=== PATIENT | female | born 1970 | race Caucasian/White ===

== ENCOUNTER 2016-09-06 08:07 | Inpatient (IN) ==
--- NOTE | 2016-09-01 21:39 | Discharge Summary ---
<Yany Lowe L - Last Filed: 09/03/16 21:34> - Discharge Diagnosis (1) Loosening of knee joint prosthesis Priority: Primary Status: Acute Qualifiers: Encounter type: initial encounter Qualified Code(s): T84.038A - Mechanical loosening of other internal prosthetic joint, initial encounter; Z96.659 - Presence of unspecified artificial knee joint (2) COPD (chronic obstructive pulmonary disease) Priority: Secondary Status: Chronic Qualifiers: COPD type: unspecified COPD Qualified Code(s): J44.9 - Chronic obstructive pulmonary disease, unspecified (3) Bipolar 1 disorder Priority: Secondary Status: Chronic (4) Obesity (BMI 30-39.9) Priority: Secondary Status: Chronic (5) Nicotine dependence with nicotine-induced disorder Priority: Secondary Status: Chronic Qualifiers: Nicotine product type: unspecified Qualified Code(s): F17.209 - Nicotine dependence, unspecified, with unspecified nicotine-induced disorders - Discharge Medications Home Medications: Albuterol Sulfate [Albuterol Inhaler] 2 puff IH Q4HR PRN 02/08/15 [History] Escitalopram [Lexapro] 20 mg PO QAM 02/08/15 [History] Esomeprazole Magnesium [Nexium] 40 mg PO DAILY 02/08/15 [History] Gabapentin [Neurontin] 300 - 600 mg PO HS 02/08/15 [History] Quetiapine Fumarate [Seroquel] 600 mg PO HS 02/08/15 [History] Tizanidine [Zanaflex] 4 mg PO QID PRN 02/08/15 [History] OxyCODONE Immed Rel [Roxicodone 5 MG] 5 - 10 mg PO Q6H PRN #40 tablet 09/03/16 [ Rx] Rivaroxaban [Xarelto] 20 mg PO DAILY #14 tablet 09/03/16 [Rx] Acetaminophen/Butalbital/Caffe [Fioricet] 1 each PO Q6HR PRN 09/06/16 [History] Amitriptyline [Elavil] 25 mg PO HS 09/06/16 [History] Buspirone HCl [Buspar] 10 mg PO BID 09/06/16 [History] Diazepam [Valium] 10 mg PO BID 09/06/16 [History] [place] Carbonate 300 mg PO BID 09/06/16 [History] Loratadine [Claritin] 10 mg PO DAILY 09/06/16 [History] Losartan Potassium [Cozaar] 100 mg PO DAILY 09/06/16 [History] Metoprolol Succinate 100 mg PO DAILY 09/06/16 [History] Pramipexole [Mirapex] 0.25 mg PO HS PRN 09/06/16 [History] Quetiapine Fumarate [Seroquel] 200 mg PO BID 09/06/16 [History] Allergies/Adverse Reactions: Allergies acetaminophen [From [place]] Allergy (Verified 09/06/16 12:08) Rash aspirin [ASA] Allergy (Verified 09/06/16 12:08) Hives hydrocodone Allergy (Verified 09/06/16 12:08) Hives meperidine [From [place]] Allergy (Verified 09/06/16 12:08) Hives lisinopril Adverse Reaction (Verified 09/06/16 12:08) Cough Primary care physician: Ector Wynne MD - Patient Status Disposition: Transfer Inpatient Rehab Fac Condition: Good - Discharge Instructions Follow Up With: Nataliia Mcdonald MD [Partnered Physician] - 01/23/17 3:00 pm Maximiliano Galvan MD [Partnered Physician] - 10/03/16 10:10 am Yany Lowe PAC [Physician Supervisor Contact And Service Clerks] - 09/14/16 1:15 pm (#2- 09/21/16 9: 45AM) Garrick Johnson DO [Partnered Physician] - 11/27/16 1:00 pm Ector Wynne MD [Primary Care Provider] - 11/06/16 2:00 pm Additional Instructions: Discharge Instructions: Total Knee Replacement Please call [facility] ([phone]), your Primary Care Physician, or report to the Emergency Room if you have any of the following symptoms: Nausea, vomiting, fever greater that 101.5, swelling, chest pain, shortness of breath, increased pain/redness/drainage/odor for your incision site, numbness/ tingling, or any other concerning symptoms. ACTIVITY:Weight-bearing as tolerated. You may progress off support (cruthches or walker) as tolerated. MEDICATIONS: Upon discharge resume your home medications. Take all the medications as prescribed. Take a stool softener if taking narcotic pain medications. Stool softeners are only effective if you drink enough fluids. Drink 6-8 glass of water or fluids a day, unless this is not allowed for another health problem. Despite using stool softeners, if you haven't had a bowel movement in 3 days, please switch to a gentle laxative. Gentle laxatives are sold over the counter. You should have a bowel movement within 24 hours, if not call the office. You will be discharged from the hospital with a prescription for pain medication. You are encouraged to decrease the use of narcotic pain medication as tolerated. Should you require a refill, please call the office. [facility] prescribes narcotic pain medication for only 4-6 weeks after surgery. If you require pain medication beyond this time periord, you may be referred to your Primary Care Physician or to the Pain Clinic for further evaluation. Plan ahead for refills on pain medication as many narcotics either need to be picked up at the office or mailed. It is best to call 48-72 hours in advance of needing a prescription refill so you don't run out of medication. To help control the post-operative pain, you may take NSAIDs (Aleve,Advil, Motrin, ibuprofen, naprosyn) or Tylenol as prescribed on the bottle in addition to the pain medication. ANTICOAGULATION (blood thinners): Continue your Aspirin, Lovenox or Coumadin as prescribed to help prevent a blood clot in the leg or in the lungs. As long as your incision remains dry and you tolerate the NSAIDs (Aleve, Advil, Motrin, ibuprofen, naprosyn), it is OK to use the NSAIDS while you are taking your anticoagulation medication. Should your incision start to drain, stop the NSAID and contact our office. Common symptoms of blood clot in the legs include: localized pain, swelling, calf tenderness, redness or discoloration of the skin. Blood clot in the lung symptoms include: shortness of breath, rapid pulse, sweating, and chest pain that worsens with deep breathing, coughing up blood, lightheadedness, feelings of anxiety. If you experience any of these symptoms notify your physician immediately, go to the emergency room, or if having trouble breathing, call 911. WOUND CARE: Leave the dressing on for 7 days. You may change the dressing if it becomes saturated greater than 50%. You can shower but not a tub bath or submerge your incision in water. Wash your hands with antibacterial soap, rinse and dry prior to any wound care. If you have ruel the visiting nurse or rehab facility can remove the stapes 10-14 days after surgery and place steri- strips across the wound. Leave the steri-strips in place until they fall off on their won. You may let water from the shower run on top of the steri-stirips. If you do not have a visiting nurse or rehab facility, you will need to return to the office at 10-14 days for the ruel to be removed. FOLLOW-UP: Please follow up with your surgeon in the orthopedic clinic in 4 weeks from the day of surgery. If you have ruel that need to be removed, you will need to come back to the office in 10-14 days from the day of surgery. - Hospital Course Hospital course: Ms. Chahal is a 46 year old female - Time Spent with Patient Total time spent providing and/or coordinating discharge services: <Maximiliano Galvan - Last Filed: 09/08/16 07:56> Date of Encounter: 09/08/16 Time of Encounter: 07:55 - Discharge Diagnosis (1) Instability of prosthetic knee Priority: Primary Status: Acute Qualifiers: Encounter type: subsequent encounter Qualified Code(s): T84.029D - Dislocation of unspecified internal joint prosthesis, subsequent encounter; Z96.659 - Presence of unspecified artificial knee joint (2) Bipolar 1 disorder Priority: Secondary Status: Chronic (3) Obesity (BMI 30-39.9) Priority: Secondary Status: Chronic (4) Nicotine dependence with nicotine-induced disorder Priority: Secondary Status: Chronic Qualifiers: Nicotine product type: unspecified Qualified Code(s): F17.209 - Nicotine dependence, unspecified, with unspecified nicotine-induced disorders (5) COPD (chronic obstructive pulmonary disease) Priority: Secondary Status: Chronic Qualifiers: COPD type: unspecified COPD Qualified Code(s): J44.9 - Chronic obstructive pulmonary disease, unspecified Primary care physician: Ector Wynne MD - Patient Status Functional capacity at discharge: uses cane/walker Overall status at discharge: patient is progressing back to baseline - Hospital Course Hospital course: Ms. Chahal is a 46 year old female The patient had an uneventful postoperative course. They received antibiotics and physical therapy and were discharged in stable condition. There will follow -up in the office in 2 weeks. - Time Spent with Patient Total time spent providing and/or coordinating discharge services:
--- NOTE | 2016-09-06 08:37 | History & Physical Report ---
Date of Encounter: 09/06/16 Time of Encounter: 08:37 24 Hour HP Update - Instructions Instructions: If the History and Physical is less than 30 days old and was completed prior to A.M. admission and or procedure and has NOT been updated on calendar day of procedure please complete this update prior to performing procedure. - Update Patient reports changes in Medical Condition: No Changes in assessment/condition: No Changes in Medication: No Preop tests/diagnostics Reviewed: Yes Surgery Remains Indicated: Yes Consent for Planned Operative Procedure(s) Verified: Yes - Pre-Operative Checklist Preoperative Checklist Indicated: No Prophylactic Antibiotic Ordered: Yes Is VTE Prophylaxis Indicated?: Yes
[2016-09-06] MEDS ORDERED: Albuterol 2.5 MG/3 ML NEBULIZER IH ONE (08:50)
[2016-09-06] MEDS ORDERED: CeFAZolin Pre 2,000 MG/100 ML 2,000 MG/100 ML BAG IVPB ONE (08:50)
[2016-09-06] MEDS ORDERED: Ringers Solution, Lactated 1,000 ML IVC SCH ×2 (09:00→20:45)
[2016-09-06] MEDS ORDERED: Famotidine 20 MG/2 ML VIAL IVP ONE (09:04)
--- NOTE | 2016-09-06 10:31 | Anesthesia Evaluation PreOp ---
Date of Encounter: 09/06/16 Time of Encounter: 10:30 - Past History Planned Operation: Left TKA Cardiac History: HTN, Hyperlipidemia, Other (Anemia) Pulmonary History: Smoker, COPD [place]UR[place]EM[place] History: Other (Migraines) Other Medical History: Denies Any Significant HX, GERD (Gerd), Other (Obese) Anesthesia History: No Prior Anesthetic Complications : No Test: Negative Alcohol Use: occasionally Drug use: none Medications and Allergies Albuterol Sulfate [Albuterol Inhaler] 2 puff IH Q4HR PRN 02/08/15 [History] Escitalopram [Lexapro] 20 mg PO QAM 02/08/15 [History] Esomeprazole Magnesium [Nexium] 40 mg PO DAILY 02/08/15 [History] Fluticasone Propionate [Flovent Hfa] 2 puff IH BID PRN 02/08/15 [History] Gabapentin [Neurontin] 300 - 600 mg PO HS 02/08/15 [History] Quetiapine Fumarate [Seroquel] 600 mg PO HS 02/08/15 [History] Tizanidine [Zanaflex] 4 mg PO QID PRN 02/08/15 [History] OxyCODONE Immed Rel [Roxicodone 5 MG] 5 - 10 mg PO Q6H PRN #40 tablet 09/03/16 [ Rx] Rivaroxaban [Xarelto] 20 mg PO DAILY #14 tablet 09/03/16 [Rx] Amlodipine [Norvasc] 5 mg PO DAILY 09/06/16 [History] Buspirone HCl [Buspar] 10 mg PO BID 09/06/16 [History] Diazepam [Valium] 10 mg PO BID 09/06/16 [History] [place] Carbonate 300 mg PO BID 09/06/16 [History] Loratadine [Claritin] 10 mg PO DAILY 09/06/16 [History] Montelukast [Singulair] 10 mg PO HS 09/06/16 [History] Potassium Chloride [K-Tab ER] 20 meq PO BID 09/06/16 [History] Allergies acetaminophen [From [place]] Allergy (Verified 08/01/16 09:57) Rash aspirin [ASA] Allergy (Verified 08/01/16 09:57) Hives hydrocodone Allergy (Verified 08/01/16 09:57) Hives meperidine [From [place]er[place]] Allergy (Verified 08/01/16 09:57) Hives lisinopril Adverse Reaction (Verified 08/01/16 09:57) Cough - Meds/Allergy Pre-op Review Medications Reviewed: Yes Allergies Reviewed: Yes Beta Blockers on Current Med List: No Anesthesia Results - Labs Laboratory Tests 08/29/16 08/29/16 14:54 14:54 Hgb 13.8 Hct 41.3 Plt Count 260 Sodium 137 Potassium 4.2 BUN 21 H Creatinine 0.86 - Imaging EKG: report reviewed (SR) Additional studies: EF 60% from 2016 Echo Anesthesia Exam O2 Sat Height 1.75 m Height 1.75 m Height 1.75 m Weight 117.027 kg Weight 117.027 kg Weight 117.027 kg O2 Sat by Pulse Oximetry 96 O2 Sat by Pulse Oximetry 96 Vital Signs Temp Pulse Resp BP Pulse Ox 98.8 F 81 18 127/84 96 09/06/16 08:33 09/06/16 08:33 09/06/16 08:33 09/06/16 08:33 09/06/16 08:33 Height: 5'9 Weight: 258 lbs NPO (# of Hours): MN Pain Scale: 0 - HEENT Pupil (Motor): Pupils equal, EOMI Mallampati: II Teeth: Normal Oral Opening: Greater than 3 - [place] LOC: Oriented [place] Motor: Normal RUE, Normal LUE, Normal RLE, Normal LLE, Normal Face [place] Sensory: Normal: RUE, LUE, RLE, LLE, Face - Cardiac Rhythm: Regular Murmur: None JVD: No Carotid Bruit: No - Pulmonary Breath Sounds: bilateral Clear Respiratory Effort: Symmetrical Anesthesia Assess/Plan ASA Score: 3 (HTN COPD) Modified Calvin Scale for Level of Consciousness: Cooperative, oriented, and tranquil Anesthetic Plan: General, Regional Monitoring Plan: Standard Monitors Recovery Plan: PACU (Discussed GA, agrees to proceed)
[2016-09-06] MEDS ORDERED: ROPIVACAINE HCL/PF 0.5% 30 ML VIAL ONE (11:19)
[2016-09-06] MEDS ORDERED: Tetracaine/PF 20 MG/2 ML AMPUL SPINA ONE (11:19)
[2016-09-06] MEDS ORDERED: Bupivacaine/Clonidine Syringe 1 EACH SYRINGE ONE (11:20)
[2016-09-06] MEDS ORDERED: *HR* Midazolam HCl 5 MG/5 ML VIAL IVP ONE (11:26)
[2016-09-06] MEDS ORDERED: *HR* FentaNYL (PF) 100 MCG/2 ML VIAL ONE ×2 (11:57→12:27)
--- NOTE | 2016-09-06 12:15 | Anesthesia Procedures ---
Date of Encounter: 09/06/16 Time of Encounter: 10:29 Procedures: Anesthesia - Nerve Block Procedure Date: 09/06/16 Time: 11:30 Surgical Procedure: TKA Correct side: Left Monitor Applied: EKG, BP, Pulse Oximetry Supplemental Oxygen via Nasal Cannula (L/min): 2 Sedation: Versed (mg): 9 Sedation: Fentanyl (mcg): 100 Indication: Post Op Analgesia Pre-op Neuro Deficits: No Block Type: Femoral, Other (IPACK) Catheter placed: No Depth at skin (cm): 3 Sterile Technique: Yes Ultrasound used: Yes Anatomy identified: Yes Visual spread of Local: Yes Neuro Stimulation: Yes Nerve Stimulator Range: >0.4 - 0.6 mA Blood on Needle Aspiration: No Smooth Injection of Local: Yes Pain with Injection of Local: No Prep: Chlorhexadine Needle: 22 x 50 mm Stimuplex, 21 x 100 mm Stimuplex Local: 0.25% Bupivicaine w/Clonidine 20 mcg/cc, Tetracaine (40), Ropivacaine ( 0.5%) Volume (cc): 30 and 20cc Number of Attempts: 1 Complications: None/effective block Vitals: Vital Signs/O2 Sat/Glucose, Most Current Temp Pulse Resp BP Pulse Ox 09/06/16 11:43 92 16 138/89 97 09/06/16 11:25 85 16 158/97 98 09/06/16 08:58 98.8 F 81 18 127/84 96 09/06/16 08:33 98.8 F 81 18 127/84 96
[2016-09-06] MEDS ORDERED: *HR* Propofol 200 MG/20 ML VIAL IVP ONE (12:27)
[2016-09-06] MEDS ORDERED: *HR* Midazolam HCl 2 MG/2 ML VIAL ONE (12:27)
[2016-09-06] MEDS ORDERED: Lidocaine -MPF 2% 2 ML VIAL ONE (12:27)
[2016-09-06] MEDS ORDERED: *HR* Labetalol 100 MG/20 ML MDV IVP PRN (12:30)
[2016-09-06] MEDS ORDERED: Ondansetron 4 MG/2 ML VIAL IVP PRN ×2 (12:30→14:25)
--- NOTE | 2016-09-06 12:43 | Orthopedic Operative Note ---
Date of procedure: 09/06/16 Pre-op diagnosis: Left knee instability, aseptic loosening tibia Post-op diagnosis: same Procedure: Procedure: Left revision tibial component Estimated blood loss: 200 cc Hardware: Arthrex tibia size 4, 14 x 800 stem, 18 PS Dayanara, 5 mm medial and lateral augments. Exam Under anesthesia: Full flexion full extension well-healed incision no swelling or erythema . Flexion valgus instability Procedural Notes: Loosening of tibial component Operative procedure: The patient was brought to the operating room and placed on the operating room table. After general anesthesia was administered the operative knee was examined. Findings were noted in the exam under anesthesia. The operative extremity was prepped and draped in sterile surgical fashion. The patient received IV antibiotics prior to skin incision. A standard midline incision was made centered over the patella. The incision was made through the skin and subcutaneous tissue through the old incision. A medial parapatellar tendon approach was performed. Care was taken to preserve tissue along the medial aspect of the patella. And to protect the patella tendon. The deep MCL was released off the medial tibia. The infra patella fat pad was excised. Cultures were obtained as well as Gram stain. Gram stain was negative for bacteria. The knee was brought into flexion the tibial poly-was removed. The femur was well fixed. Attention was then turned to the tibial component. The tibial component was loose and removed with an osteotome without any bone loss. Tibia was recut just below the level of the cement mantle. The tibia was prepared first sized to a 4 reamed to a 14 x 80 stem. The finishing punch was seated. Trial had good fit and fixation with 25 mm augments medial and lateral.. Trial reduction revealed full extension and full flexion no varus valgus instability with an 18 PS Dayanara. Trial components removed knee sat for 2 minutes with a Betadine saline solution. It was irrigated out with pulse irrigation. Components were assembled on the back table. The tibia cemented. The 18 PS Dayanara was seated and secure. The had full flexion and full extension and excellent patella tracking no varus valgus instability. After the cement hardened the knee was irrigated out again. The knee was taken through a range of motion had excellent patella tracking. The extensor mechanism was closed with a running #2 Fiberwire suture and a running #2 PDS suture. The deep tissue was irrigated and closed deep with #1 PDS suture superficially with 0 PDS suture. The skin was closed with skin ruel. The patient was placed in a sterile dressing and postoperative brace. They were extubated and transferred to recovery room in stable condition. Anesthesia: RACHELA Surgeon: Maximiliano Galvan Condition: stable Disposition: PACU
[2016-09-06] MEDS ORDERED: Ondansetron 4 MG/2 ML VIAL ONE (13:00)
[2016-09-06] MEDS ORDERED: Dexamethasone 4 MG/ML VIAL ONE (13:00)
[2016-09-06] MEDS ORDERED: *HR* HYDROmorphone 2 MG/ML SYRINGE ONE (13:09)
[2016-09-06] MEDS: *HR* HYDROmorphone (PF) 1 MG/ML SYRINGE IVP PRN ×4 (13:20→22:00)
[2016-09-06 13:58] LABS: Hematocrit 36.8 % (35.3-44.9); Hemoglobin 11.8 g/dL (11.5-15.4)
--- NOTE | 2016-09-06 14:05 | Anesthesia Evaluation Post Op ---
Date of Encounter: 09/06/16 Time of Encounter: 13:56 - Vital Signs Vital Signs: Vital Signs/O2 Sat, Most Current Temp Pulse Resp BP Pulse Ox 97.3 F L 97 18 147/88 94 L 09/06/16 13:24 09/06/16 13:36 09/06/16 13:36 09/06/16 13:36 09/06/16 13:36 - Lungs Lungs: Clear Ascult./Percussion - Airway Airway: Non-obstructed - Cardiovascular Regular Rate - Mental Status Mental Status: Alert & Oriented, Answers Appropriately - Pain Pain Scale: 0 Pain Scale used: Numeric (1 - 10) - Nausea Vomiting Nausea Vomiting: Not Present - Hydration Hydration: Ice chips, Has not voided - Discharge PostOp Status: Transfer Patient to floor
[2016-09-06] MEDS ORDERED: Naloxone 0.4 MG/ML INJ IVP PRN (14:25)
[2016-09-06] MEDS ORDERED: NON-FORMULARY MEDICATION 1 EACH EACH (Fluticasone Propionate [Flovent Hfa] 2 PUFF) IH PRN (14:25)
[2016-09-06] MEDS ORDERED: MOM Conc 10 ML UD.LIQ PO PRN (14:25)
[2016-09-06] MEDS ORDERED: Temazepam 15 MG CAPSULE PO PRN (14:25)
[2016-09-06] MEDS ORDERED: *HR* OxyCODONE Immed Rel 5 MG TABLET PO PRN (14:25)
[2016-09-06] MEDS ORDERED: Sennosides 8.6 MG TABLET PO PRN (14:25)
[2016-09-06] MEDS: *HR* OxyCODONE Immed Rel 5 MG TABLET PO PRN ×2 (15:10→19:55)
[2016-09-06] MEDS ORDERED: ceFAZolin 2,000 MG in D5% in Water 100 ML IVPB SCH (16:00)
[2016-09-06] MEDS: Nicotine 21 MG PATCH.TD24 TD SCH (18:31)
[2016-09-06] MEDS: tiZANidine 4 MG TABLET PO PRN (18:31)
[2016-09-06] MEDS: Gabapentin 300 MG CAPSULE PO SCH (20:01)
[2016-09-06] MEDS: Lithium Carbonate 300 MG CAPSULE PO SCH (20:02)
[2016-09-06] MEDS: diazePAM 10 MG TABLET PO SCH (20:02)
[2016-09-06] MEDS: ceFAZolin 2,000 MG in D5% in Water 100 ML IVPB SCH (20:03)
[2016-09-07] MEDS: *HR* OxyCODONE Immed Rel 5 MG TABLET PO PRN ×4 (00:10→21:40)
[2016-09-07] MEDS: *HR* HYDROmorphone (PF) 1 MG/ML SYRINGE IVP PRN ×2 (02:27→04:39)
[2016-09-07] MEDS: ceFAZolin 2,000 MG in D5% in Water 100 ML IVPB SCH (04:51)
[2016-09-07] MEDS ORDERED: CefTRIAXone 2,000 MG VIAL IM ONE (05:36)
[2016-09-07 05:47] LABS: Hematocrit 34.2 % (35.3-44.9); Hemoglobin 11.2 g/dL (11.5-15.4)
[2016-09-07 06:04] LABS: BUN/Creatinine Ratio 19 (6-26); Blood Urea Nitrogen 14 mg/dL (7-20); Calcium 8.6 mg/dL (8.6-10.8); Carbon Dioxide 20 mEq/L (19-29); Chloride 102 mEq/L (98-109); Glucose 119 mg/dL (70-99); Osmolality,Calculated 280 (280-300); Potassium 4.5 mEq/L (3.5-4.5); Sodium 134 mEq/L (136-145); eGFR For African Americans > 60 (> 60); eGFR For Non-African Americans > 60 (> 60)
--- NOTE | 2016-09-07 06:27 | Orthopedics Progress Note ---
Date of Encounter: 09/07/16 Time of Encounter: 06:26 - Assessment and Plan (1) Instability of prosthetic knee Current Visit: Yes Status: Acute Qualifiers: Encounter type: subsequent encounter Qualified Code(s): T84.029D - Dislocation of unspecified internal joint prosthesis, subsequent encounter; Z96.659 - Presence of unspecified artificial knee joint (2) Bipolar 1 disorder Current Visit: No Status: Chronic (3) Obesity (BMI 30-39.9) Current Visit: No Status: Chronic (4) Nicotine dependence with nicotine-induced disorder Current Visit: No Status: Chronic Qualifiers: Nicotine product type: unspecified Qualified Code(s): F17.209 - Nicotine dependence, unspecified, with unspecified nicotine-induced disorders (5) COPD (chronic obstructive pulmonary disease) Current Visit: Yes Status: Chronic Qualifiers: COPD type: unspecified COPD Qualified Code(s): J44.9 - Chronic obstructive pulmonary disease, unspecified Subjective Interval history: Patient was seen this morning doing well without complaints. Afebrile vital signs stable. Operative extremity: Neurovascularly intact Dressing clean dry and intact [place] nontender Assessment and plan: Continue with postoperative care Hematocrit 34 Objective Vital signs: Vital Signs Temp Pulse Resp BP Pulse Ox 09/07/16 00:07 97.7 F 93 17 148/87 95 09/06/16 20:20 94 L 09/06/16 19:40 97.6 F 106 16 132/74 94 L 09/06/16 17:37 106 18 132/85 93 L 09/06/16 15:59 98.1 F 89 18 138/96 94 L 09/06/16 15:02 98.1 F 96 18 123/88 96 09/06/16 14:27 98.1 F 111 20 120/89 95 09/06/16 14:10 97.8 F 102 17 151/96 94 L 09/06/16 14:00 105 17 156/94 95 09/06/16 13:50 101 18 150/96 95 09/06/16 13:40 97.4 F L 97 18 159/96 94 L 09/06/16 13:36 97 18 147/88 94 L 09/06/16 13:24 97.3 F L 107 16 155/93 93 L 09/06/16 13:22 98 18 138/93 94 L 09/06/16 11:43 92 16 138/89 97 09/06/16 11:25 85 16 158/97 98 09/06/16 08:58 98.8 F 81 18 127/84 96 09/06/16 08:33 98.8 F 81 18 127/84 96 Intake and Output 09/06/16 09/06/16 09/07/16 15:59 23:59 07:59 Intake Total 420 / 420 640 / 640 Output Total 200 / 200 150 / 150 200 / 200 Balance -200 / -200 270 / 270 440 / 440 Intake: IV Fluids 100 / 100 Ancef 2,000 MG In 100 / 100 Dextrose 5% 100 ML @ 200 mls/hr IVPB Q8H DEIDRE Rx#: [id number] Oral 320 / 320 640 / 640 Output: Urine 150 / 150 200 / 200 Estimated Blood Loss 200 / 200 Other: # Voids 2 Weight 117.027 kg - Labs CBC & BMP: 09/07/16 05:08 09/07/16 05:08 Labs: Abnormal lab results Hgb 11.2 g/dL (11.5-15.4) L 09/07/16 05:08 Hct 34.2 % (35.3-44.9) L 09/07/16 05:08 Sodium 134 mEq/L (136-145) L 09/07/16 05:08 Glucose 119 mg/dL (70-99) H 09/07/16 05:08 - VTE Documentation of Mechanical Device: Venous foot pump, device Consult Discharge Plan - Plan Referrals: Ector Wynne MD [Primary Care Provider] -
[2016-09-07] MEDS: Lithium Carbonate 300 MG CAPSULE PO SCH ×2 (08:25→20:06)
[2016-09-07] MEDS: diazePAM 10 MG TABLET PO SCH ×2 (08:26→20:06)
[2016-09-07] MEDS: *HR* HYDROmorphone (PF) 1 MG/ML SYRINGE SQ PRN ×5 (08:27→23:50)
[2016-09-07] MEDS: Loratadine 10 MG TABLET PO SCH (08:27)
[2016-09-07] MEDS: Nicotine 21 MG PATCH.TD24 TD SCH ×2 (08:28→14:20)
[2016-09-07] MEDS: amLODIPine 5 MG TABLET PO SCH ×2 (08:33→08:35)
[2016-09-07] MEDS: tiZANidine 4 MG TABLET PO PRN ×2 (14:15→20:14)
[2016-09-07] MEDS: Metoprolol XL (24 HR) Succ 50 MG TAB.ER.24H PO SCH (16:51)
[2016-09-07] MEDS: Ondansetron ODT 4 MG TAB.RAPDIS SL PRN (17:15)
[2016-09-07] MEDS: Gabapentin 300 MG CAPSULE PO SCH (20:06)
[2016-09-08] MEDS: *HR* OxyCODONE Immed Rel 5 MG TABLET PO PRN ×2 (04:03→09:53)
[2016-09-08 04:57] LABS: Hematocrit 33.8 % (35.3-44.9); Hemoglobin 10.8 g/dL (11.5-15.4)
[2016-09-08 05:17] LABS: BUN/Creatinine Ratio 16 (6-26); Blood Urea Nitrogen 12 mg/dL (7-20); Carbon Dioxide 20 mEq/L (19-29); Chloride 103 mEq/L (98-109); Glucose 137 mg/dL (70-99); Osmolality,Calculated 280 (280-300); Potassium 4.4 mEq/L (3.5-4.5); Sodium 134 mEq/L (136-145); eGFR For African Americans > 60 (> 60); eGFR For Non-African Americans > 60 (> 60)
[2016-09-08] MEDS: *HR* HYDROmorphone (PF) 1 MG/ML SYRINGE SQ PRN ×3 (05:52→14:19)
--- NOTE | 2016-09-08 07:56 | Orthopedics Progress Note ---
Date of Encounter: 09/08/16 Time of Encounter: 07:56 - Assessment and Plan (1) Instability of prosthetic knee Current Visit: Yes Status: Acute Qualifiers: Encounter type: subsequent encounter Qualified Code(s): T84.029D - Dislocation of unspecified internal joint prosthesis, subsequent encounter; Z96.659 - Presence of unspecified artificial knee joint (2) Bipolar 1 disorder Current Visit: No Status: Chronic (3) Obesity (BMI 30-39.9) Current Visit: No Status: Chronic (4) Nicotine dependence with nicotine-induced disorder Current Visit: No Status: Chronic Qualifiers: Nicotine product type: unspecified Qualified Code(s): F17.209 - Nicotine dependence, unspecified, with unspecified nicotine-induced disorders (5) COPD (chronic obstructive pulmonary disease) Current Visit: Yes Status: Chronic Qualifiers: COPD type: unspecified COPD Qualified Code(s): J44.9 - Chronic obstructive pulmonary disease, unspecified Subjective Interval history: Patient was seen this morning doing well without complaints. Afebrile vital signs stable. Operative extremity: Neurovascularly intact Dressing clean dry and intact Calves nontender Assessment and plan: Continue with postoperative care Hematocrit 33 discharged today Objective Vital signs: Vital Signs Temp Pulse Resp BP Pulse Ox 09/08/16 06:59 98.2 F 90 16 123/82 91 L 09/08/16 04:04 98.3 F 94 17 136/82 94 L 09/07/16 23:48 97.9 F 89 17 158/99 98 09/07/16 20:00 97.9 F 100 17 152/90 95 09/07/16 15:37 98.4 F 107 16 177/107 95 09/07/16 10:49 97.5 F L 102 16 163/103 96 Intake and Output 09/07/16 09/07/16 09/08/16 15:59 23:59 07:59 Intake Total 240 / 240 300 / 300 100 / 100 Output Total 250 / 250 250 / 250 Balance 240 / 240 50 / 50 -150 / -150 Intake: Oral 240 / 240 300 / 300 100 / 100 Output: Urine 250 / 250 250 / 250 Other: Meal Breakfast Percent of Meal Consumed 0% - Labs CBC & BMP: 09/08/16 04:29 09/08/16 04:29 Labs: Abnormal lab results Hgb 10.8 g/dL (11.5-15.4) L 09/08/16 04:29 Hct 33.8 % (35.3-44.9) L 09/08/16 04:29 Sodium 134 mEq/L (136-145) L 09/08/16 04:29 Glucose 137 mg/dL (70-99) H 09/08/16 04:29 - VTE Documentation of Mechanical Device: Venous foot pump, device Consult Discharge Plan - Plan Additional Instructions: Discharge Instructions: Total Knee Replacement Please call [facility] ([phone]), your Primary Care Physician, or report to the Emergency Room if you have any of the following symptoms: Nausea, vomiting, fever greater that 101.5, swelling, chest pain, shortness of breath, increased pain/redness/drainage/odor for your incision site, numbness/ tingling, or any other concerning symptoms. ACTIVITY:Weight-bearing as tolerated. You may progress off support (cruthches or walker) as tolerated. MEDICATIONS: Upon discharge resume your home medications. Take all the medications as prescribed. Take a stool softener if taking narcotic pain medications. Stool softeners are only effective if you drink enough fluids. Drink 6-8 glass of water or fluids a day, unless this is not allowed for another health problem. Despite using stool softeners, if you haven't had a bowel movement in 3 days, please switch to a gentle laxative. Gentle laxatives are sold over the counter. You should have a bowel movement within 24 hours, if not call the office. You will be discharged from the hospital with a prescription for pain medication. You are encouraged to decrease the use of narcotic pain medication as tolerated. Should you require a refill, please call the office. [facility] prescribes narcotic pain medication for only 4-6 weeks after surgery. If you require pain medication beyond this time periord, you may be referred to your Primary Care Physician or to the Pain Clinic for further evaluation. Plan ahead for refills on pain medication as many narcotics either need to be picked up at the office or mailed. It is best to call 48-72 hours in advance of needing a prescription refill so you don't run out of medication. To help control the post-operative pain, you may take NSAIDs (Aleve,Advil, Motrin, ibuprofen, naprosyn) or Tylenol as prescribed on the bottle in addition to the pain medication. ANTICOAGULATION (blood thinners): Continue your Aspirin, Lovenox or Coumadin as prescribed to help prevent a blood clot in the leg or in the lungs. As long as your incision remains dry and you tolerate the NSAIDs (Aleve, Advil, Motrin, ibuprofen, naprosyn), it is OK to use the NSAIDS while you are taking your anticoagulation medication. Should your incision start to drain, stop the NSAID and contact our office. Common symptoms of blood clot in the legs include: localized pain, swelling, calf tenderness, redness or discoloration of the skin. Blood clot in the lung symptoms include: shortness of breath, rapid pulse, sweating, and chest pain that worsens with deep breathing, coughing up blood, lightheadedness, feelings of anxiety. If you experience any of these symptoms notify your physician immediately, go to the emergency room, or if having trouble breathing, call 911. WOUND CARE: Leave the dressing on for 7 days. You may change the dressing if it becomes saturated greater than 50%. You can shower but not a tub bath or submerge your incision in water. Wash your hands with antibacterial soap, rinse and dry prior to any wound care. If you have ruel the visiting nurse or rehab facility can remove the stapes 10-14 days after surgery and place steri- strips across the wound. Leave the steri-strips in place until they fall off on their won. You may let water from the shower run on top of the steri-stirips. If you do not have a visiting nurse or rehab facility, you will need to return to the office at 10-14 days for the ruel to be removed. FOLLOW-UP: Please follow up with your surgeon in the orthopedic clinic in 4 weeks from the day of surgery. If you have ruel that need to be removed, you will need to come back to the office in 10-14 days from the day of surgery. Referrals: Nataliia Mcdonald MD [Partnered Physician] - 01/23/17 3:00 pm Maximiliano Galvan MD [Partnered Physician] - 10/03/16 10:10 am Yany Lowe PAC [Physician Lead Sql Developer] - 09/14/16 1:15 pm (#2- 09/21/16 9: 45AM) Garrick Johnson DO [Partnered Physician] - 11/27/16 1:00 pm Ector Wynne MD [Primary Care Provider] - 11/06/16 2:00 pm
[2016-09-08] MEDS: Lithium Carbonate 300 MG CAPSULE PO SCH (09:52)
[2016-09-08] MEDS: Loratadine 10 MG TABLET PO SCH (09:52)
[2016-09-08] MEDS: tiZANidine 4 MG TABLET PO PRN (09:52)
[2016-09-08] MEDS: Nicotine 21 MG PATCH.TD24 TD SCH (09:52)
[2016-09-08] MEDS: diazePAM 10 MG TABLET PO SCH (09:53)
[2016-09-08] MEDS: amLODIPine 5 MG TABLET PO SCH (09:53)
[2016-09-08] MEDS: Metoprolol XL (24 HR) Succ 50 MG TAB.ER.24H PO SCH (09:53)
[2016-09-08 11:23] VITALS: BP 139/83
[2016-09-08] MEDS: Ondansetron ODT 4 MG TAB.RAPDIS SL PRN ×2 (11:33)
== END 2016-09-08 16:46 | DRG 468 ==
LOC: SAMDAY 08:07 → 3NENU 14:19
PROVIDERS: ADMIT Orthopaedic Surgery; ATTEND Orthopaedic Surgery

== ENCOUNTER 2016-11-13 08:09 | Observation (INO) ==
--- NOTE | 2016-11-13 08:49 | Emergency Department Note ---
Disposition Clinical Impression: Chest pain of uncertain etiology Disposition: Admitted As Inpatient Condition: Fair Time of Disposition: 11:35 Chest Pain HPI - General Chief Complaint: ED Chest Pain Stated Complaint: CHEST PAIN Time Seen by Provider: 11/13/16 08:14 Source: patient Limitations: no limitations Vital Signs Reviewed: Yes Nursing Notes Reviewed: Yes - History of Present Illness HPI Narrative: Ms. Chahal, a 46-year-old female, presents from home by POV with chief complaint of chest pain. Patient notes that she was at [facility] yesterday where they could not place an IV and thus she was unable to have a CT chest to rule out PE. She was discharged home and instructed to return to emergency department if her chest pain continued or worsened. Patient notes her pain started 5 days ago. Described as midsternal sharp stabbing with radiation to her right jaw as well as interscapular. It has been intermittent however was constant yesterday and progressed overnight. She has associated nausea and exertional dyspnea. Denies diaphoresis, dizziness fever, chills, hemoptysis. PMH: Migraine, bipolar 1, COPD with asthma PSH: Left knee arthroplasty-multiple revisions; last revision to August of this year. ROS: Positive: Chest pain radiation, headache, nausea, dyspnea with exertion, generalized weakness Negative: fever, chills, cough, vomiting, dizziness, abdominal pain, unilateral weakness/numbness/tingling Severity scale (1-10): 9 - Related Data Home Medications Medication Instructions Recorded Confirmed Albuterol Sulfate [Albuterol 2 puff IH Q4HR PRN 02/08/15 11/13/16 Inhaler] Escitalopram [Lexapro] 20 mg PO QAM 02/08/15 11/13/16 Esomeprazole Magnesium [Nexium] 40 mg PO DAILY 02/08/15 11/13/16 Gabapentin [Neurontin] 300 - 600 mg PO HS 02/08/15 11/13/16 Quetiapine Fumarate [Seroquel] 400 mg PO HS 02/08/15 11/13/16 Tizanidine [Zanaflex] 4 mg PO QID PRN 02/08/15 11/13/16 Acetaminophen/Butalbital/Caffe 1 tab PO Q6HR PRN 09/06/16 11/13/16 [Fioricet] Buspirone HCl [Buspar] 10 mg PO BID 09/06/16 11/13/16 Isabela Carbonate 300 mg PO BID 09/06/16 11/13/16 Loratadine [Claritin] 10 mg PO DAILY 09/06/16 11/13/16 Losartan Potassium [Cozaar] 100 mg PO DAILY 09/06/16 11/13/16 Metoprolol Succinate 100 mg PO DAILY 09/06/16 11/13/16 diazePAM [Valium] 10 mg PO BID 09/06/16 11/13/16 Naproxen Sod/Diphenhydram HCl 1 tab PO HS PRN 11/13/16 11/13/16 [Aleve Pm Caplet] Previous Rx's Medication Instructions Recorded Oxycodone HCl/Acetaminophen 1 each PO Q6H #7 tablet 11/12/16 [Percocet 5-325 mg Tablet] Allergies Allergy/AdvReac Type Severity Reaction Status Date / Time acetaminophen [From [place]] Allergy Rash Verified 11/13/16 08:13 aspirin [ASA] Allergy Hives Verified 11/13/16 08:13 hydrocodone Allergy Hives Verified 11/13/16 08:13 meperidine [From [place]er[place]] Allergy Hives Verified 11/13/16 08:13 lisinopril AdvReac Cough Verified 11/13/16 08:13 All systems ED: reviewed and negative except as stated. 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 HEENT: No facial asymmetry. Head is normocephalic and atraumatic. PERRLA, EOMI. trachea midline. Cardiovascular: Heart regular rate and rhythm without clicks, rubs, gallops, or murmurs. No JVD. PMI nondisplaced. Bilateral radial and posterior tibial pulses equal at 2/4. Trace pedal edema. Chest pain to palpation. Respiratory: Symmetric chest rise with poor respiratory effort. Prolonged expiratory phase. Bilateral breath sounds with diffuse wheezing. No crackles or rhonchi. Abdomen: Obese. Bowel sounds present normoactive x-4 quadrants. Abdomen is soft, nondistended. Epigastric tenderness. Unable to assess for organomegaly given patient's body habitus. Musculoskeletal: Interscapular pain to palpation. Psych: Patient's affect is appropriate for situation. - General Limitations: no limitations General appearance: alert, in no apparent distress Course Course Narrative: Chart check: Chest x-ray 11/12/16: Radiology interpretation-cardiomegaly, low lung volumes. No acute cardiopulmonary process. Left knee x-ray of 10/11/2016: Radiology impression-stable left knee arthroplasty. Cardiac stress test 09/30/16: LVEF 67%. Negative for ischemia or infarct. ACS is unlikely however will still perform an EKG, chest x-ray, and troponin. PE is possible though unlikely: [place] DVT score 0. She is PERC given her surgery September 06. We will d-dimer. Patient does have wheezes on exam; we will provide DuoNeb's. Pneumonia or bronchitis clinically unlikely. The patient does have chest pain on palpation, she states that it is different than what she has been experiencing. But she does also have epigastric pain, she does have a history of GERD and notes that her symptoms today are different than her typical reflux symptoms. Patient's interscapular back pain is exactly reproducible palpation. Comparing the history of present illness from [place] emergency department to the patient's story today, there are some inconsistencies in patients reported symptoms. She did receive Percocet and Dilaudid yesterday which patient again requests today. She noted yesterday a [facility] emergency department she was out of all pain medications. The provider to initial course of Percocet with instructions for follow-up with her family physician. [facility] report: Patient has active prescriptions for oxycodone, gabapentin, diazepam. Patient is requesting pain medication. She is allergic to acetaminophen and aspirin. Will provide Toradol this time. She does complain to nursing of the Toradol not working to relieve her pain. She is now sleeping comfortably however. Patient's lab work is unremarkable. Specifically EKG shows no changes, troponin negative despite this pain ongoing for the last 5 days and constant for the last 24+ hours. Chest x-ray unremarkable. CTA chest unremarkable for PE, pneumonia, or other concerning process per radiology reading. Patient is again complaining for pain relief. At this time, all of her workup is negative and will discharge home. She only has prescription of Percocet from her previous ER visit yesterday. Discussed with patient her workup, the results of that workup, and the meaning of those results. Spoke with Dr. Sharma who will see the patient once on the floor. Vital Signs Temperature 97.5 F L 11/13/16 08:10 Pulse Rate 90 11/13/16 08:10 Respiratory Rate 16 11/13/16 08:10 Blood Pressure 148/88 11/13/16 08:10 O2 Sat by Pulse Oximetry 96 11/13/16 08:10 Temperature 98.5 F 11/13/16 13:37 Pulse Rate 80 11/13/16 13:37 Respiratory Rate 17 11/13/16 13:37 Blood Pressure 157/89 11/13/16 13:37 O2 Sat by Pulse Oximetry 94 11/13/16 13:37 Oxygen Delivery Oxygen Delivery Room Air Chest Pain - Medical Records Medical records reviewed: Yes I reviewed the patient's medical records. - Lab Data Lab results reviewed: Yes I reviewed the patient's lab results. Result diagrams: 11/13/16 09:01 11/13/16 09:01 Lab Results 11/13/16 11/13/16 11/13/16 Range/Units 09:01 09:01 09:01 WBC 7.9 (4.3-11.1) K/mcL RBC 4.22 (3.82-4.97) M/mcL Hgb 11.9 (11.5-15.4) g/dL Hct 37.3 (35.3-44.9) % MCV 88.4 (83.0-100.0) fL MCH 28.2 (28.0-33.3) pg MCHC 31.9 (31.6-35.5) g/dL RDW 15.9 H (11.5-14.5) % Plt Count 210 (140-400) K/mcL MPV 9.6 (9.4-12.4) fL Immature Gran % 0.3 (0-4) % Seg Neutrophils % 59.1 % Lymphocytes % 30.8 % Monocytes % 6.0 % Eosinophils % 2.9 % Basophils % 0.9 % Neutrophils # 4.7 (1.6-8.9) K/mcL Lymphocytes # 2.4 (0.6-4.6) K/mcL Monocytes # 0.5 (0.0-1.3) K/mcL Eosinophils # 0.2 (0.0-0.6) K/mcL Basophils # 0.1 (0.0-0.2) K/mcL D-Dimer 571 H (0-500) ng/mLFEU Sodium 138 (136-145) mEq/L Potassium 3.7 (3.5-4.5) mEq/L Chloride 107 (98-109) mEq/L Carbon Dioxide 20 (19-29) mEq/L BUN 17 (7-20) mg/dL Creatinine 0.74 (0.57-1.11) mg/dL Est GFR ( Amer) > 60 (> 60) Est GFR (Non-Af Amer) > 60 (> 60) BUN/Creatinine Ratio 23 (6-26) Glucose 104 H (70-99) mg/dL Calculated Osmolality 288 (280-300) Calcium 8.9 (8.6-10.8) mg/dL Total Bilirubin (0.2-1.2) mg/dL Direct Bilirubin (0.0-0.5) mg/dL Indirect Bilirubin (0.0-1.2) mg/dL AST (5-34) Units/L ALT (0-55) Units/L Alkaline Phosphatase (38-126) Units/L Troponin I (0-0.03) ng/mL Serum Total Protein (6.0-8.3) g/dL Albumin (3.5-5.0) g/dL Globulin (2.4-3.5) g/dL Albumin/Globulin Ratio (1.1-2.2) Lipase (8-78) Units/L 11/13/16 11/13/16 11/13/16 Range/Units 09:01 09:01 09:01 WBC (4.3-11.1) K/mcL RBC (3.82-4.97) M/mcL Hgb (11.5-15.4) g/dL Hct (35.3-44.9) % MCV (83.0-100.0) fL MCH (28.0-33.3) pg MCHC (31.6-35.5) g/dL RDW (11.5-14.5) % Plt Count (140-400) K/mcL MPV (9.4-12.4) fL Immature Gran % (0-4) % Seg Neutrophils % % Lymphocytes % % Monocytes % % Eosinophils % % Basophils % % Neutrophils # (1.6-8.9) K/mcL Lymphocytes # (0.6-4.6) K/mcL Monocytes # (0.0-1.3) K/mcL Eosinophils # (0.0-0.6) K/mcL Basophils # (0.0-0.2) K/mcL D-Dimer (0-500) ng/mLFEU Sodium (136-145) mEq/L Potassium (3.5-4.5) mEq/L Chloride (98-109) mEq/L Carbon Dioxide (19-29) mEq/L BUN (7-20) mg/dL Creatinine (0.57-1.11) mg/dL Est GFR ( Amer) (> 60) Est GFR (Non-Af Amer) (> 60) BUN/Creatinine Ratio (6-26) Glucose (70-99) mg/dL Calculated Osmolality (280-300) Calcium (8.6-10.8) mg/dL Total Bilirubin 0.2 (0.2-1.2) mg/dL Direct Bilirubin 0.1 (0.0-0.5) mg/dL Indirect Bilirubin 0.1 (0.0-1.2) mg/dL AST 13 (5-34) Units/L ALT 14 (0-55) Units/L Alkaline Phosphatase 80 (38-126) Units/L Troponin I 0.01 (0-0.03) ng/mL Serum Total Protein 6.4 (6.0-8.3) g/dL Albumin 3.2 L (3.5-5.0) g/dL Globulin 3.2 (2.4-3.5) g/dL Albumin/Globulin Ratio 1.0 L (1.1-2.2) Lipase 22 (8-78) Units/L - EKG Data EKG attestation: Yes I reviewed and interpreted this EKG. EKG results narrative: EKG dated 11/13/16 at 08:14 interpreted as sinus rhythm with rate of 83. Normal intervals [place] 140, QRS 27, QT/QTC 5/425. Normal axis. Nonspecific ST-T changes. Compared to previous dated 08/01/2016 showing no acute ischemic changes of comparison. Heart Score - Score History: Slightly Suspicious EKG: Normal Age: 45-65 Risk Factors: 1-2 risk factors Troponin: Less than normal limit HEART Score Total: 2 Attestation Statement - Attestation Attestation: I examined this patient and my medical decision-making was reviewed with the TRUCKSMITH/PA/Advanced Practice Nurse/Resident Physician. I agree with the documented findings, disposition and treatment plan as described except to the extent set forth below. Patient to the emergency department with chest pain. Patient describes sharp substernal pain radiating to her right scapula. Seen yesterday at another ER for the same. The pain does not change with exertion. Been constant through the night. Patient with a history of the same in negative workups. Her risk includes hypertension. On examination she is laying in bed in no acute distress. Her lungs are clear. Heart regular rate and rhythm. Plan. EKG has nonspecific ST changes and is unchanged from her prior. Cardiac workup. D- dimer is slightly elevated. We will check a CTA. Reevaluate. Patient low risk. Likely discharge home with PCP follow-up. Patient strep is negative and her EKG is unchanged. There is concerning on her CT scan for an age indeterminate area of ischemia. Patient will be admitted for further cardiac workup.
[2016-11-13] MEDS ORDERED: Ipratropium/Albuterol Neb 3 ML IH ONE (08:51)
[2016-11-13 09:15] LABS: Basophils # 0.1 K/mcL (0.0-0.2); Basophils % 0.9 %; Eosinophils # 0.2 K/mcL (0.0-0.6); Eosinophils % 2.9 %; Hematocrit 37.3 % (35.3-44.9); Hemoglobin 11.9 g/dL (11.5-15.4); Immature Granulocytes % 0.3 % (0-4); Lymphocytes # 2.4 K/mcL (0.6-4.6); Lymphocytes % 30.8 %; Mean Corpuscular HGB Conc 31.9 g/dL (31.6-35.5); Mean Corpuscular Hemoglobin 28.2 pg (28.0-33.3); Mean Corpuscular Volume 88.4 fL (83.0-100.0); Mean Platelet Volume 9.6 fL (9.4-12.4); Monocytes # 0.5 K/mcL (0.0-1.3); Neutrophils # 4.7 K/mcL (1.6-8.9); Platelet Count 210 K/mcL (140-400); Red Blood Count 4.22 M/mcL (3.82-4.97); Red Cell Distribution Width 15.9 % (11.5-14.5); Segmented Neutrophils % 59.1 %
[2016-11-13] MEDS ORDERED: Ketorolac 15 MG/ML VIAL IVP ONE (09:16)
[2016-11-13] MEDS ORDERED: 0.9 % Sodium Chloride 1,000 ML IVC ONE (09:29)
[2016-11-13] MEDS ORDERED: Ondansetron 4 MG/2 ML VIAL IVP ONE (09:33)
[2016-11-13 09:35] LABS: BUN/Creatinine Ratio 23 (6-26); Blood Urea Nitrogen 17 mg/dL (7-20); Calcium 8.9 mg/dL (8.6-10.8); Carbon Dioxide 20 mEq/L (19-29); Chloride 107 mEq/L (98-109); Glucose 104 mg/dL (70-99); Osmolality,Calculated 288 (280-300); Potassium 3.7 mEq/L (3.5-4.5); Sodium 138 mEq/L (136-145); eGFR For African Americans > 60 (> 60); eGFR For Non-African Americans > 60 (> 60)
[2016-11-13 09:36] LABS: Albumin 3.2 g/dL (3.5-5.0); Bilirubin,Direct 0.1 mg/dL (0.0-0.5); Bilirubin,Indirect 0.1 mg/dL (0.0-1.2); Bilirubin,Total 0.2 mg/dL (0.2-1.2); Globulin 3.2 g/dL (2.4-3.5); Total Protein 6.4 g/dL (6.0-8.3)
[2016-11-13] MEDS ORDERED: *HR* Morphine 2 MG/ML SYRINGE IVP ONE (12:30)
[2016-11-13] MEDS ORDERED: Ondansetron 4 MG/2 ML VIAL IVP PRN (13:05)
[2016-11-13] MEDS ORDERED: Naloxone 0.4 MG/ML INJ IVP PRN (13:05)
--- NOTE | 2016-11-13 13:06 | Event Note ---
Date of Encounter: 11/13/16 Time of Encounter: 13:04 1. Chest pain, CT scan of the chest did not show any pulmonary emboli but showed a assume endocardial hypodensity on the left ventricular apex concerning for prior myocardial infarction undetermined age, also mild vascular congestion and possible bronchitis with Start azithromycin for acute bronchitis viral versus bacterial Consult cardiology, continue telemetry, follow troponins, start aspirin, Lipitor , check lipid panel Consider stress test for the morning 2. History of bipolar disorder, stable 3. History of migraines, stable 4. Asthma, order albuterol inhaler as needed Admit for observation, Lovenox for DVT prophylaxis. Full code. Time spent on this admission 40 minutes.
[2016-11-13] MEDS ORDERED: Acetaminophen/Butalbital/CaffeineTABLET PO PRN (13:13)
[2016-11-13] MEDS ORDERED: DIPHENHYDRAMINE PO PRN (13:13)
[2016-11-13] MEDS ORDERED: tiZANidine 4 MG TABLET PO PRN (13:13)
[2016-11-13] MEDS ORDERED: NAPROXEN PO PRN (13:13)
--- NOTE | 2016-11-13 13:42 | Internal Med History&Physical ---
<VinodbjkevinHector nunez - Last Filed: 11/13/16 14:36> Date of Encounter: 11/13/16 Time of Encounter: 12:30 Assessment and Plan (1) Chest pain Current visit: Yes Status: Acute Assess: Ms. Chahal presents with chief complaint of chest pain and SOB which started 5 days ago. Patient was seen at [facility] yesterday (11/12/16). She was discharged home and instructed to return if chest pain continued or worsened. She describes her pain as midsternal sharp and stabbing pain that radiated to her back as well as her right jaw and neck and rates her pain as a 10. Mrs. Chahal also reports nausea, abdominal pain, and worsening SOB with exertion. CT scan of chest dated today (11/13/16) shows no evidence of PE but shows endocardial hypodensity on the left ventricular apex concerning for prior PA of undetermined age. Plan: EV Ecocariogram ordered Continuous cardiac telemetry ordered Low-dose aspirin ordered Lipitor ordered Continue Lopressor Monitor patient and vital signs Cardiology consult ordered and placed Lipid panel ordered Qualifiers: Chest pain type: unspecified Qualified Code(s): R07.9 - Chest pain, unspecified (2) COPD with asthma Current visit: Yes Status: Acute Assess: Patient presents with history of chronic COPD with asthma. Plan: Julius ordered Continue patient's asthma medications (3) Migraine Current visit: Yes Status: Chronic Assess: Patient presents with history of chronic migraines. Patient reports she currently has migraine while in ED with photophobia, rating her pain at 5. Plan: Continue patient's migraine medications Monitor patient for pain Qualifiers: Migraine type: with aura Status migrainosus presence: with status migrainosus Intractability: intractable Qualified Code(s): G43.111 - Migraine with aura, intractable, with status migrainosus (4) Obesity (BMI 30-39.9) Current visit: Yes Status: Chronic Assess: Patient presents with history of obesity and BMI of 33.5. Plan: Cardiac diet ordered Lipid panel ordered Patient educated on sodium intake and dietary choices (5) Tobacco abuse Current visit: Yes Status: Chronic Assess: She presents with history of chronic tobacco abuse. States she currently smokes 1 pack per day. Plan: 14 mg nicotine patch ordered Tobacco cessation counseling provided to patient (6) DVT prophylaxis Current visit: Yes Status: Acute Assess: Patient received DVT prophylaxis while inpatient status due to current chest pain, bedrest status, and inpatient protocol. Plan: Heparin 5,000 units SQ Q8 ordered Internal Medicine - H&P: HPI Chief complaint: Chest pain Admitted From: Emergency Dept Plans for Post Hospital Care: Home History of present illness: Ms. Chahal is a 46 year old female who presents from the ED with chief complaint of chest pain and SOB which started 5 days ago. Patient was seen at [facility] yesterday (11/12/16). She was discharged home and instructed to return if chest pain continued or worsened. She describes her pain as midsternal sharp and stabbing pain that radiated to her back as well as her right jaw and neck and rates her pain as a 10. Mrs. Chahal also reports nausea, abdominal pain, and worsening SOB with exertion. Patient denies diaphoresis, vomiting, dizziness, fever, chills, hemoptysis, numbness, tingling, or unilateral or generalized weakness. Patient also reports pain in left knee related to 7 surgeries and 1 revision. She reports difficulty in ambulating. Patient has history of arthritis , asthma, COPD, fibromyalgia, GERD, hyperlipidemia, hypertension, migraine, osteoporosis, anxiety, bipolar depression, and TIAs. CT scan of the chest dated today (11/13/16) shows no evidence of PE but showed suspicious endocardial hypodensity on the left ventricular apex which is concerning for possible prior PA. CT scan also shows vascular congestion due to possible bronchitis. Patient to be admitted as observation status with continuous cardiac telemetry, order for EV echocardiogram, and azithromycin for bronchitis coverage. Cardiology consult ordered and placed. Patient to be monitored closely. 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) Current living situation: Home, With Family Activity Level: Independent ambulation Recent Out of Country Travel Within the Last 8 Weeks: No Exposure or Possible Exposure to Illness During Travel: No - Family History Father Race: Family Member Ethnicity: Non- Living Status: Still Living Hx Family Cardiac Disorders: Yes (CHF, A-FIB) Hx Family Respiratory Disorders: Yes (COPD) Hx Family Cancer: Yes (Leukemia) Hx Family Endocrine Disorder: Yes (DM) Mother Race: Family Member Ethnicity: Non- Living Status: Still Living Hx Family Cardiac Disorders: Yes Hx Family Respiratory Disorders: Yes Hx Family Endocrine Disorder: Yes (DM) Hx Family Musculoskeletal Disorders: Yes (Hip replacement) Brother Race: Family Member Ethnicity: Non- Living Status: Age at : 45 Cause of : Drug OD Internal Medicine - H&P: Meds Albuterol Sulfate [Albuterol Inhaler] 2 puff IH Q4HR PRN 02/08/15 [History] Escitalopram [Lexapro] 20 mg PO QAM 02/08/15 [History] Esomeprazole Magnesium [Nexium] 40 mg PO DAILY 02/08/15 [History] Gabapentin [Neurontin] 300 - 600 mg PO HS 02/08/15 [History] Quetiapine Fumarate [Seroquel] 400 mg PO HS 02/08/15 [History] Tizanidine [Zanaflex] 4 mg PO QID PRN 02/08/15 [History] Acetaminophen/Butalbital/Caffe [Fioricet] 1 tab PO Q6HR PRN 09/06/16 [History] Buspirone HCl [Buspar] 10 mg PO BID 09/06/16 [History] [place] Carbonate 300 mg PO BID 09/06/16 [History] Loratadine [Claritin] 10 mg PO DAILY 09/06/16 [History] Losartan Potassium [Cozaar] 100 mg PO DAILY 09/06/16 [History] Metoprolol Succinate 100 mg PO DAILY 09/06/16 [History] diazePAM [Valium] 10 mg PO BID 09/06/16 [History] Oxycodone HCl/Acetaminophen [Percocet 5-325 mg Tablet] 1 each PO Q6H #7 tablet 11/12/16 [Rx] Naproxen Sod/Diphenhydram HCl [Aleve Pm Caplet] 1 tab PO HS PRN 11/13/16 [ History] Allergies acetaminophen [From [place]] Allergy (Verified 11/13/16 08:13) Rash aspirin [ASA] Allergy (Verified 11/13/16 08:13) Hives hydrocodone Allergy (Verified 11/13/16 08:13) Hives meperidine [From Demerol] Allergy (Verified 11/13/16 08:13) Hives lisinopril Adverse Reaction (Verified 11/13/16 08:13) Cough All Systems PM: A 10-system review of systems was performed and is negative for pertinent findings except as documented above in the HPI. - Constitutional Constitutional: as per HPI, weakness, no chills, no fever(s), no night sweats - EENT Eyes: no change in vision, no discharge, no pain, no photophobia Ears: no ear discharge, no ear pain, no tinnitus Nose, mouth and throat: no dysphagia, no nasal discharge, no neck pain, no sore throat - Breasts Breasts: as per HPI - Cardiovascular Cardiovascular ROS IM: as per HPI, chest pain, dyspnea, dyspnea on exertion - Respiratory Respiratory: as per HPI, cough (Dry cough), dyspnea on exertion, no dyspnea, no wheezing, no excessive phlegm production - Gastrointestinal Gastrointestinal: as per HPI, abdominal pain, no diarrhea, no hematemesis, no hematochezia, no melena, no nausea, no vomiting - Genitourinary Genitourinary: no change in urinary stream, no dysuria, no flank pain, no hematuria Menstruation: as per HPI - Musculoskeletal Musculoskeletal ROS IM: as per HPI, other (Chronic left leg pain related to hx of 7 knee surgeries and 1 revision.), no numbness, no tingling - Integumentary Integumentary IM: no rash, no unusual bruising - Neurological Neurological ROS: as per HPI, headache(s) (Migraines), no confusion, no convulsions, no focal weakness, no numbness, no tingling, no tremor(s) - Psychiatric Psychiatric: as per HPI, anxiety, depression - Endocrine Endocrine IM: as per HPI - Hematologic/Lymphatic Hematologic/Lymphatic: no easy bruising - Allergic/Immunologic Allergic/Immunologic: as per HPI - Constitutional Vitals: Temp Pulse Resp BP Pulse Ox 97.5 F L 82 16 143/96 97 11/13/16 08:10 11/13/16 12:47 11/13/16 13:07 11/13/16 13:07 11/13/16 12:47 General appearance: Present: cooperative, mild distress, A&O X 3, pleasant, obese, answers questions appropriately - Head Head exam: Present: atraumatic, normocephalic - Eye Eye exam: Present: PERRL, conjuntiva pink, sclera anicteric Pupils: Present: PERRL - ENT ENT exam: Present: normal exam, normal external ear exam - Neck Neck exam general surgery: Present: supple, trachea midline. Absent: lymphadenopathy - Respiratory Respiratory exam: Present: CTAB. Absent: accessory muscle use, rales, rhonchi, wheezes Additional comments: Lungs clear bilaterally in all lobes. - Cardiovascular Cardiovascular exam: Present: RRR, +S1, +S2. Absent: diastolic murmur, gallop, rubs, systolic murmur - GI/Abdominal GI/Abdominal exam: Present: normal bowel sounds, soft, tenderness, no peritoneal signs. Absent: distended - Rectal Rectal exam: Present: deferred - Additional comments: exam deferred. - Extremities Exam Extremities exam: Present: normal capillary refill, normal inspection, warm, radial pulses palpable and symetrical. Absent: calf tenderness, cyanotic, pedal edema - Back Exam Back exam: Present: normal inspection - Neurological Exam Neurological exam: Present: CN II-XII intact, oriented X3, no focal deficits. Absent: pronater drift, facial droop, speech deficit - Psychiatric Psychiatric exam: Present: normal affect, normal mood - Skin Skin exam: Present: dry, intact Internal Med - H&P Results - Labs CBC & Chem 7: 11/13/16 09:01 11/13/16 09:01 - EKG Data EKG shows normal: sinus rhythm - EKG Data Prior EKG available for review: yes When compared to previous EKG: there is no significant change EKG comments: 11/13/16 13:51 EKG dated 08/01/16 shows sinus rhythm with nonspecific T-wave abnormality. EKG dated 11/13/16 shows sinus rhythm with moderate voltage criteria for LVH, consider normal variant. Nonspecific T-wave abnormality. - Diagnostic Studies CT scan - chest Additional comments: CTA of the chest with IV contrast dated 11/13/16 shows: Pulmonary Arteries: Mildly dilated out of proportion with the descending thoracic aorta. Adequately opacified for evaluation. No filling defects consistent with emboli. Mediastinum: Mild cardiomegaly. No bowing of the interventricular septum. Mild right ventricular hypertrophy. Moderate concentric left ventricular hypertrophy, sparing the apex. Subtle subendocardial hypodensity in the left ventricular apex. No pericardial effusion. Similar appearance of mildly enlarged right lower paratracheal and sub-carinal lymph nodes, likely reactive. No hilar lymphadenopathy. Lungs/Pleura: Partial collapse of the central airways likely related to expiration during image acquisition. Minimal small bronchial wall thickening. Mosaic attenuation in both lungs. [place] dependent atelectasis predominantly in the lower lobes. Calcified granuloma in the right lower lobe. No pleural effusion nor pneumothoraces. Upper Abdomen: Normal appearance of the included upper abdominal organs. Soft Tissues/Bones: No supraclavicular nor axillary lymphadenopathy. No acute fractures or suspicious osseous lesions. Overall Impression: No findings of pulmonary embolism. Mild cardiomegaly with mild right ventricular hypertrophy and moderate concentric left ventricular hypertrophy. This could be related to pulmonary hypertension given dilation of the pulmonary arteries. Subtle subendocardial hypodensity in the left ventricular apex potentially related to age-indeterminate myocardial ischemia. Minimal to mild bronchial wall thickening potentially related to pulmonary vascular congestion or bronchitis. Mosaic attenuation of the lungs potentially representing edema from the pulmonary hypertension. Alternately, this could be related to small airways or small vessels disease. <Nba Mora H - Last Filed: 11/13/16 15:21> Date of Encounter: 11/13/16 Internal Medicine - H&P: HPI History of present illness: Ms. Chahal is a 46 year old female All Systems PM: A 10-system review of systems was performed and is negative for pertinent findings except as documented above in the HPI. - Constitutional Vitals: Temp Pulse Resp BP Pulse Ox 98.5 F 80 17 157/89 94 11/13/16 13:37 11/13/16 13:37 11/13/16 13:37 11/13/16 13:37 11/13/16 13:37 Internal Med - H&P Results - Labs CBC & Chem 7: 11/13/16 09:01 11/13/16 09:01 - Attending Attestation 1. Chest pain, CT scan of the chest did not show any pulmonary emboli but showed an endocardial hypodensity on the left ventricular apex concerning for prior myocardial infarction undetermined age, also mild vascular congestion and possible bronchitis Start azithromycin for acute bronchitis viral versus bacterial Consult cardiology, continue telemetry, follow troponins, start aspirin, Lipitor , check lipid panel Consider stress test for the morning 2. History of bipolar disorder, stable 3. History of migraines, stable 4. Asthma, order albuterol inhaler as needed Admit for observation, Lovenox for DVT prophylaxis. Full code. Time spent on this admission 40 minutes. I examined this patient and my medical decision-making was reviewed with the INCINERATOR PLANT SUPERVISOR/PA/Advanced Practice Nurse/Resident Physician. I agree with the documented findings, disposition and treatment plan as described except to the extent set forth below.
[2016-11-13] MEDS ORDERED: Azithromycin 500 MG in D5% in Water 250 ML IVPB SCH (14:00)
[2016-11-13] MEDS: *HR* Heparin 5,000 UNIT/ML VIAL SQ SCH ×2 (14:16→23:45)
[2016-11-13] MEDS: *HR* OxyCODONE/APAP 5/325 TABLET PO SCH ×2 (14:16→20:05)
[2016-11-13] MEDS: Azithromycin 500 MG in D5% in Water 250 ML IVPB SCH (14:17)
[2016-11-13] MEDS: *HR* Morphine 2 MG/ML SYRINGE IVP PRN ×2 (15:18→19:11)
[2016-11-13 19:20] LABS: Bilirubin,Urine Negative (Negative); Blood,Urine Small (Negative); Clarity,Urine Clear (Clear); Color,Urine Yellow (Yellow); Glucose,Urine (UA) Normal (Normal); Ketones,Urine Negative (Negative); Leukocyte Esterase,Urine Negative (Negative); Nitrite,Urine Negative (Negative); PH,Urine 5.5 pH Units (5.0-8.0); Protein,Urine Negative (Neg-Trace); Specific Gravity,Urine > 1.030 (1.010-1.025); Urobilinogen,Urine Normal (Normal)
[2016-11-13 19:23] LABS: Hyaline Casts,Urine None Seen per lpf (None-Few); RBC,Urine 0-3 per hpf (0-3); Squamous Epithelial Cell,Urine Many per lpf (None-Few); WBC,Urine 0-3 per hpf (0-3)
[2016-11-13 19:38] LABS: Bacteria,Urine Few per hpf (None-Few); Yeast,Urine Moderate per hpf (None Seen)
[2016-11-13] MEDS: diazePAM 10 MG TABLET PO SCH (20:04)
[2016-11-13] MEDS: Lithium Carbonate 300 MG CAPSULE PO SCH (20:05)
[2016-11-13] MEDS: Gabapentin 300 MG CAPSULE PO SCH (20:06)
[2016-11-13] MEDS: Nitroglycerin 0.4 MG TAB.SUBL SL PRN (23:45)
[2016-11-14] MEDS: *HR* OxyCODONE/APAP 5/325 TABLET PO SCH ×2 (00:35→06:24)
[2016-11-14] MEDS: Nitroglycerin 0.4 MG TAB.SUBL SL PRN (03:37)
[2016-11-14] MEDS ORDERED: Ketorolac 15 MG/ML VIAL IVP ONE (05:10)
[2016-11-14 05:45] LABS: Basophils # 0.1 K/mcL (0.0-0.2); Basophils % 0.8 %; Eosinophils # 0.2 K/mcL (0.0-0.6); Eosinophils % 3.5 %; Hematocrit 36.6 % (35.3-44.9); Hemoglobin 11.3 g/dL (11.5-15.4); Immature Granulocytes % 0.3 % (0-4); Lymphocytes # 2.3 K/mcL (0.6-4.6); Lymphocytes % 35.8 %; Mean Corpuscular HGB Conc 30.9 g/dL (31.6-35.5); Mean Corpuscular Hemoglobin 27.5 pg (28.0-33.3); Mean Corpuscular Volume 89.1 fL (83.0-100.0); Monocytes # 0.4 K/mcL (0.0-1.3); Neutrophils # 3.4 K/mcL (1.6-8.9); Platelet Count 213 K/mcL (140-400); Red Blood Count 4.11 M/mcL (3.82-4.97); Red Cell Distribution Width 15.7 % (11.5-14.5); Segmented Neutrophils % 53.6 %
[2016-11-14 05:47] LABS: INR 1.1; Prothrombin Time 11.8 Seconds (9.4-12.1)
[2016-11-14 05:49] LABS: Activated Partial Thrombo Time 31.8 Seconds (26.0-36.0)
[2016-11-14 06:03] LABS: Alanine Aminotransferase 15 Units/L (0-55); Albumin 3.4 g/dL (3.5-5.0); Albumin/Globulin Ratio 1.1 (1.1-2.2); Alkaline Phosphatase 70 Units/L (38-126); Aspartate Amino Transferase 17 Units/L (5-34); BUN/Creatinine Ratio 15 (6-26); Bilirubin,Total 0.2 mg/dL (0.2-1.2); Blood Urea Nitrogen 11 mg/dL (7-20); Calcium 8.8 mg/dL (8.6-10.8); Carbon Dioxide 22 mEq/L (19-29); Chloride 106 mEq/L (98-109); Chol/HDL Ratio 5.6 (0-4.9); Cholesterol 169 mg/dL (< 200); Glucose 113 mg/dL (70-99); HDL Cholesterol 30 mg/dL (40-59); LDL Cholesterol,Calculated 65 mg/dL (0-99); Osmolality,Calculated 288 (280-300); Potassium 4.1 mEq/L (3.5-4.5); Sodium 139 mEq/L (136-145); Total Protein 6.4 g/dL (6.0-8.3); Triglycerides 372 mg/dL (< 150); eGFR For African Americans > 60 (> 60); eGFR For Non-African Americans > 60 (> 60)
[2016-11-14] MEDS: *HR* Heparin 5,000 UNIT/ML VIAL SQ SCH ×3 (06:23→21:44)
[2016-11-14] MEDS: Pantoprazole 40 MG VIAL IVP SCH (07:43)
[2016-11-14] MEDS: Metoprolol XL (24 HR) Succ 50 MG TAB.ER.24H PO SCH (07:49)
[2016-11-14] MEDS: Aspirin Enteric Coated 81 MG Tablet PO SCH (07:49)
[2016-11-14] MEDS: Loratadine 10 MG TABLET PO SCH (07:50)
[2016-11-14] MEDS: Lithium Carbonate 300 MG CAPSULE PO SCH ×2 (07:50→21:44)
[2016-11-14] MEDS: diazePAM 10 MG TABLET PO SCH ×2 (07:50→21:43)
[2016-11-14] MEDS: Ketorolac 30 MG/ML VIAL IVP PRN ×2 (10:35→18:25)
--- NOTE | 2016-11-14 10:57 | Internal Med Progress Note ---
Date of Encounter: 11/14/16 Time of Encounter: 09:30 - Assessment and plan (1) Chest pain Current Visit: Yes Status: Acute Assessment and plan: Patient still complaining of chest pain and is requesting IV pain medication. IV morphine was ordered- IV toradol ordered. Patient noted per nursing to be bargaining that we can hold her benzos if she can get IV morphine or diluadid. Strong suspicion for drug seeking. On examination, lungs CTAB with good aeration and she is on room air. Trop negative x3. Chest pain is reproducible with palpation and consistent with musculoskeletal etiology. Negative stress test in September of 2015. This is her 9th visit in the last year for chest pain. Cardiology onboard- appreciate their recommendations. Echo pending. CTA negative for PE but with findings consistent with pulmonary vascular congestion , possible bronchitis. Possible discharge today pending echocardiogram and clinical outcomes. ITS Impressions Chest CTA 11/13/16 09:28 IMPRESSION: 1. No findings of pulmonary embolism. 2. Mild cardiomegaly with mild right ventricular hypertrophy and moderate concentric left ventricular hypertrophy. This could be related to pulmonary hypertension given dilation of the pulmonary arteries. 3. Subtle subendocardial hypodensity in the left ventricular apex potentially related to age-indeterminate myocardial ischemia. 4. Minimal to mild bronchial wall thickening potentially related to pulmonary vascular congestion or bronchitis. 5. Mosaic attenuation in the lungs potentially representing edema from pulmonary hypertension. Alternately, this could be related to small airways or small vessels disease. D/ / Anmol Gilmore MD / Anmol Gilmore MD Interpreting Provider: Anmol Gilmore MD Qualifiers: Chest pain type: unspecified Qualified Code(s): R07.9 - Chest pain, unspecified (2) Migraine Current Visit: Yes Status: Chronic Assessment and plan: patient denies vision changes or gait abnormalities. Will let her eat now that she is alert and oriented x3 and monitor. Toradol for ZAMUDIO. Qualifiers: Migraine type: with aura Status migrainosus presence: with status migrainosus Intractability: intractable Qualified Code(s): G43.111 - Migraine with aura, intractable, with status migrainosus (3) Chronic pain Current Visit: Yes Status: Chronic Assessment and plan: In review of her chart in [facility] and her [facility] report, she has been seen by multiple providers and has had multiple admissions for chest pain and for pain associated with her orthopedic surgeries. The source of her pain seems to oscillate between her chest, her back and her knee. She has had several short term pain medication prescriptions via several providers. When she is admitted to the hospitals, it appears as if she continually requests IV pain medications. Concern for possible drug seeking behavior as the source of her pain keeps changing. Will defer to her outpatient team for her chronic pain. (4) Bipolar 1 disorder Current Visit: No Status: Chronic Assessment and plan: mood and affect stable (5) Nicotine dependence with nicotine-induced disorder Current Visit: No Status: Chronic Assessment and plan: declines counseling Qualifiers: Nicotine product type: unspecified Qualified Code(s): F17.209 - Nicotine dependence, unspecified, with unspecified nicotine-induced disorders (6) COPD with asthma Current Visit: Yes Status: Chronic Assessment and plan: No acute exacerbation. Patient does endorse mild shortness of breath above her normal however her lungs are clear to auscultation bilaterally with good aeration. She is on room air. No increased work of breathing. (7) DVT prophylaxis Current Visit: Yes Status: Acute Assessment and plan: Subcutaneous heparin (8) Obesity (BMI 30-39.9) Current Visit: Yes Status: Chronic (9) Yeast infection Current Visit: Yes Status: Acute Assessment and plan: urinalysis consistent with yeast infection. Diflucan x1. - Subjective Interval history: Patient seen and examined. On examination, patient asleep in bed and awakened easily to voice. She complains of chest pain, back pain, headache. She is also endorsing shortness of breath above her norm. She is continually asking for more IV pain medication. - Constitutional Vitals: Temp Pulse Resp BP Pulse Ox 98.3 F 77 18 142/89 95 11/14/16 06:19 11/14/16 06:19 11/14/16 07:51 11/14/16 06:19 11/14/16 07:51 General appearance: Present: cooperative, A&O X 3, pleasant, no acute distress, obese, answers questions appropriately - Head Head exam: Present: atraumatic, normocephalic - Eye Eye exam: Present: PERRL, conjuntiva pink, sclera anicteric Pupils: Present: PERRL - Neck Neck exam general surgery: Present: supple, trachea midline. Absent: lymphadenopathy - Respiratory Respiratory exam: Present: CTAB. Absent: accessory muscle use, rales, respiratory distress, rhonchi, wheezes - Cardiovascular Cardiovascular exam: Present: RRR, +S1, +S2. Absent: diastolic murmur, gallop, rubs, systolic murmur - GI/Abdominal GI/Abdominal exam: Present: normal bowel sounds, soft, no peritoneal signs. Absent: distended, tenderness - Extremities Exam Extremities exam: Present: warm, radial pulses palpable and symetrical. Absent : calf tenderness, cyanotic, pedal edema - Neurological Exam Neurological exam: Present: alert, CN II-XII intact, oriented X3, no focal deficits, strengths equal and symetr throughout. Absent: pronater drift, facial droop, speech deficit - Skin Skin exam: Present: dry, intact, pallor, warm Internal Medicine: Result - Labs CBC & Chem 7: 11/14/16 04:33 11/14/16 04:33 Labs: Short CBC 11/14/16 Range/Units 04:33 WBC 6.3 (4.3-11.1) K/mcL Hgb 11.3 L (11.5-15.4) g/dL Hct 36.6 (35.3-44.9) % Plt Count 213 (140-400) K/mcL Neutrophils # 3.4 (1.6-8.9) K/mcL BMP 11/14/16 04:33 Sodium 139 Potassium 4.1 Chloride 106 Carbon Dioxide 22 BUN 11 Creatinine 0.72 Glucose 113 H Calcium 8.8 Cardiac Enzymes 11/13/16 11/13/16 Range/Units 14:53 21:10 Troponin I 0.00 0.00 (0-0.03) ng/mL Liver Function 11/14/16 Range/Units 04:33 Total Bilirubin 0.2 (0.2-1.2) mg/dL AST 17 (5-34) Units/L ALT 15 (0-55) Units/L Alkaline Phosphatase 70 (38-126) Units/L Albumin 3.4 L (3.5-5.0) g/dL Urine 11/13/16 Range/Units 19:10 Urine Color Yellow (Yellow) Urine Clarity Clear (Clear) Urine pH 5.5 (5.0-8.0) pH Units Ur Specific [place] > 1.030 H (1.010-1.025) Urine Protein Negative (Neg-Trace) mg/dL Urine Glucose (UA) Normal (Normal) mg/dL - ABG Interpretation ABG results: PT/INR, D-dimer PT 11.8 Seconds (9.4-12.1) 11/14/16 04:33 D-Dimer 571 ng/mLFEU (0-500) H 11/13/16 09:01 Consult Discharge Plan - Plan Referrals: Ector Wynne MD [Primary Care Provider] -
[2016-11-14] MEDS ORDERED: Fluconazole 100 MG TABLET PO ONE (11:50)
[2016-11-14] MEDS: Azithromycin 500 MG in D5% in Water 250 ML IVPB SCH (13:29)
[2016-11-14] MEDS: Nicotine 14 MG PATCH.TD24 TD SCH (13:39)
[2016-11-14] MEDS: *HR* OxyCODONE/APAP 5/325 TABLET PO PRN ×2 (13:40→21:50)
--- NOTE | 2016-11-14 14:33 | Cardiology Consult Note ---
Date of Encounter: 11/14/16 Time of Encounter: 14:00 Assessment and Plan (1) Atypical chest pain Current Visit: No Status: Acute Per cardiology: -Patient reports chest pain while riding tractor cutting grass. -Patient states was midsternal and radiated to left side. -Patient states has current chest pain and rates 6/10. -Patient states pain was worsened with movement. -Patient denies alleviating factors. Patient states pain was not relived with nitro. -Stress 09/2015 negative for ischemia or infarct. -Of note, patient had CT chest 11/13/16 with "subtle subendocardial hypodensity in the left ventricular apex potentially related to age-indeterminate myocardial ischemia. -Echo 11/04/16 with LVEF 60%, moderate diastolic dysfunction of left ventricle, mild mitral regurgitation, mild tricuspid regurgitation, all donovan with normal motion. -Discussed medical management for atypical chest pain, however patient states that she is extremely concerned regarding symptoms and has never had cardiac catheterization. -Will make NPO after midnight for possible cath in am. (2) Hypertension Current Visit: Yes Status: Chronic Per cardiology: -KNown history of hypertension. -On beta avery and ARB. -Current BPs 120-140s systolic. -WIll continue to monitor. -Can consider further titration of anti-hypertensives. Qualifiers: Hypertension type: essential hypertension Qualified Code(s): I10 - Essential (primary) hypertension (3) Hypertriglyceridemia Current Visit: Yes Status: Acute Per cardiology: -Triglycerides now 372. -Now on statin, started by primary service. -Will continue to monitor. (4) Tobacco abuse Current Visit: Yes Status: Chronic Per cardiology: -Patient reports to currently smoking 0.5ppd for 25 years. -I spent 3-5minutes reviewing smoking cessation education with patient. Discussion w patient/family: The assessment and plan as outlined above was discussed with the patient who expressed understanding and agreement. All questions were answered. Thank you for involving us in the care of your patient. Please call with any questions. Discussed and reviewed with . History of Present Illness Consult date: 11/13/16 Requesting physician: Delta Garrett Consult reason: CTA with myocardial ischemia Chief complaint: Chest pain History of present illness: Ms. Chahal is a 46 year old female with a relevant past medical history of depression, GERD, HTN, hyperlipidemia, and smoking. Patient presents to ER for mid sternal chest pain that radiated to left side. Chest pain started while riding on tractor cutting grass. Patient states pain was worsened with movement. Patient denies alleviating factors. Patient states she was given nitro in ER with no relief of symptoms. Patient states she has had this chest pain before, about one year ago. At that time, patient had negative stress test. Patient denies shortness of breath or increased fatigue. Patient states she has current chest pain now and rates pain 6/10. Past Med Surg Social Fam HX - Past Medical History Attestation: Yes The following information was validated with the patient. Source: patient, old records reviewed Medical history: arthritis, asthma, COPD, fibromyalgia, GERD, hyperlipidemia, hypertension, migraine, osteoporosis, TIA Psychiatric history: anxiety, bipolar, depression - Past Surgical History Surgical History: , knee replacement (Left knee surgeries x7 with 1 revision), orthopedic, other, sinus surgery, other - Social History Smoking Status: Current every day smoker Packs per day: 1 PPD Smokeless Tobacco Status: No Alcohol use: occasionally Drug use: none - Family History Brother Race: Family Member Ethnicity: Non- Living Status: Age at : 45 Cause of : Drug OD Father Race: Family Member Ethnicity: Non- Living Status: Still Living Hx Family Cardiac Disorders: Yes (CHF, A-FIB) Hx Family Respiratory Disorders: Yes (COPD) Hx Family Cancer: Yes (Leukemia) Hx Family Endocrine Disorder: Yes (DM) Mother Race: Family Member Ethnicity: Non- Living Status: Still Living Hx Family Cardiac Disorders: Yes Hx Family Respiratory Disorders: Yes Hx Family Endocrine Disorder: Yes (DM) Hx Family Musculoskeletal Disorders: Yes (Hip replacement) Medications and Allergies Albuterol Sulfate [Albuterol Inhaler] 2 puff IH Q4HR PRN 02/08/15 [History] Escitalopram [Lexapro] 20 mg PO QAM 02/08/15 [History] Esomeprazole Magnesium [Nexium] 40 mg PO DAILY 02/08/15 [History] Gabapentin [Neurontin] 300 - 600 mg PO HS 02/08/15 [History] Quetiapine Fumarate [Seroquel] 400 mg PO HS 02/08/15 [History] Tizanidine [Zanaflex] 4 mg PO QID PRN 02/08/15 [History] Acetaminophen/Butalbital/Caffe [Fioricet] 1 tab PO Q6HR PRN 09/06/16 [History] Buspirone HCl [Buspar] 10 mg PO BID 09/06/16 [History] Brecon Carbonate 300 mg PO BID 09/06/16 [History] Loratadine [Claritin] 10 mg PO DAILY 09/06/16 [History] Losartan Potassium [Cozaar] 100 mg PO DAILY 09/06/16 [History] Metoprolol Succinate 100 mg PO DAILY 09/06/16 [History] diazePAM [Valium] 10 mg PO BID 09/06/16 [History] Oxycodone HCl/Acetaminophen [Percocet 5-325 mg Tablet] 1 each PO Q6H #7 tablet 11/12/16 [Rx] Naproxen Sod/Diphenhydram HCl [Aleve Pm Caplet] 1 tab PO HS PRN 11/13/16 [ History] Allergies acetaminophen [From [place]] Allergy (Verified 11/13/16 08:13) Rash aspirin [ASA] Allergy (Verified 11/13/16 08:13) Hives hydrocodone Allergy (Verified 11/13/16 08:13) Hives meperidine [From Demerol] Allergy (Verified 11/13/16 08:13) Hives lisinopril Adverse Reaction (Verified 11/13/16 08:13) Cough All Systems Review: A 10-system review of systems was performed and is negative for pertinent findings except as documented above in the HPI. - Cardiovascular Cardiovascular: as per HPI, chest pain at rest Physical Examination Vital Signs, Last 4 Hours Temp Pulse Resp BP Pulse Ox 11/14/16 11:13 16 95 11/14/16 10:54 98.9 F 72 15 152/100 93 General: Conversant, No Apparent Distress HEENT: Atraumatic, Normocephaly, Mucus Membranes Moist Neck: No JVD, Normal carotid pulses Cardiac: Reg Rate and Rhythm, Normal S1 and S2, No Murmur Lungs: Normal Breath Sounds, No Wheeze, Rales, Rhonchi Neuro: Alert and responsive, No focal deficits noted Abdomen: Soft, Non-Tender Skin: No rashes noted on visualized skin Musculoskeletal: No Chest Wall Tenderness Extremities: No Clubbing, No Cyanosis, No Edema, Normal Pulses Results 11/14/16 04:33 11/14/16 04:33 Lab Results Active Medications Acetaminophen/Butalbital/Caffeine (Fioricet) 1 each PO Q6HR PRN; Protocol PRN Reason: Migraine Headache Stop: 05/15/17 13:14 Albuterol Sulfate (Albuterol Inhaler) 2 puff IH [id number] [facility] Stop: 05/15/17 13:14 Last Admin: 11/14/16 11:13 Dose: 2 puff Aspirin (Aspirin Ec) 81 mg PO DAILY [facility] Stop: 05/16/17 09:01 Last Admin: 11/14/16 07:49 Dose: 81 mg Atorvastatin Calcium (Lipitor) 20 mg PO HS [facility] Stop: 05/15/17 21:01 Last Admin: 11/13/16 20:05 Dose: 20 mg Buspirone HCl (Buspar) 10 mg PO BID [facility] Stop: 05/15/17 21:01 Last Admin: 11/14/16 07:49 Dose: 10 mg Diazepam (Valium) 10 mg PO BID [facility] Stop: 05/15/17 21:01 Last Admin: 11/14/16 07:50 Dose: 10 mg Escitalopram Oxalate (Lexapro) 20 mg PO QAM [facility] Stop: 05/16/17 09:01 Last Admin: 11/14/16 07:48 Dose: 20 mg Gabapentin (Neurontin) 600 mg PO HS [facility] Stop: 05/15/17 21:01 Last Admin: 11/13/16 20:06 Dose: 600 mg Heparin Sodium (Porcine) (Heparin) 5,000 unit SQ Q8HCO [facility] Stop: 05/15/17 14:01 Last Admin: 11/14/16 13:29 Dose: 5,000 unit Azithromycin 500 mg/ Dextrose 250 mls @ 252 mls/hr IVPB Q24H [facility] Stop: 05/15/17 14:01 Last Admin: 11/14/16 13:29 Dose: 252 mls/hr Ketorolac Tromethamine (Toradol) 30 mg IVP Q6HR PRN PRN Reason: Moderate Pain-option A Stop: 11/19/16 08:30 Last Admin: 11/14/16 10:35 Dose: 30 mg Brecon Carbonate (Brecon Carbonate) 300 mg PO BID [facility] Stop: 05/15/17 21:01 Last Admin: 11/14/16 07:50 Dose: 300 mg Loratadine (Claritin) 10 mg PO DAILY [facility] PRN Reason: Protocol Stop: 05/16/17 09:01 Last Admin: 11/14/16 07:50 Dose: 10 mg Losartan Potassium (Cozaar) 100 mg PO DAILY [facility] Stop: 05/16/17 09:01 Last Admin: 11/14/16 07:49 Dose: 100 mg Metoprolol Succinate (Toprol Xl) 100 mg PO DAILY [facility] Stop: 05/16/17 09:01 Last Admin: 11/14/16 07:49 Dose: 100 mg Morphine Sulfate (Morphine Sulfate) 2 mg IVP Q4HR PRN PRN Reason: Severe Pain (7-10) Stop: 05/15/17 13:06 Last Admin: 11/13/16 19:11 Dose: 2 mg Naloxone HCl (Narcan) 0.4 mg IVP Q2MIN PRN PRN Reason: Opioid Reversal Stop: 05/15/17 13:06 Nicotine (Nicoderm) 14 mg TD DAILY [facility] PRN Reason: Protocol Stop: 05/16/17 09:01 Last Admin: 11/14/16 13:39 Dose: Not Given Nitroglycerin (Nitroglycerin) 0.4 mg SL Q5MIN PRN PRN Reason: Chest Pain Stop: 05/15/17 13:24 Last Admin: 11/14/16 03:37 Dose: 0.4 mg Ondansetron HCl (Zofran) 4 mg IVP Q8HR PRN PRN Reason: Nausea And Vomiting Stop: 05/15/17 13:06 Oxycodone/Acetaminophen (Percocet 5/325) 1 each PO Q6H PRN PRN Reason: moderate pain- option B Stop: 05/15/17 13:16 Last Admin: 11/14/16 13:40 Dose: 1 each Pantoprazole Sodium (Protonix) 40 mg IVP DAILY [facility] Stop: 05/16/17 09:01 Last Admin: 11/14/16 07:43 Dose: 40 mg Pharmacy Profile Note (Patient Taking Own Medication) 0 each PO HS PRN PRN Reason: Headache Quetiapine Fumarate (Seroquel) 400 mg PO HS [facility] Stop: 05/15/17 21:01 Last Admin: 11/13/16 20:06 Dose: 400 mg Tizanidine HCl (Zanaflex) 4 mg PO QID PRN PRN Reason: Muscle Spasm Stop: 05/15/17 13:14 Laboratory Tests 11/13/16 11/13/16 11/13/16 09:01 14:53 21:10 Hgb Potassium Creatinine Magnesium Troponin I 0.01 0.00 0.00 Triglycerides Cholesterol LDL Cholesterol, Calc HDL Cholesterol 11/14/16 11/14/16 04:33 04:33 Hgb 11.3 L Potassium 4.1 Creatinine 0.72 Magnesium 2.0 Troponin I Triglycerides 372 H Cholesterol 169 LDL Cholesterol, Calc 65 HDL Cholesterol 30 L - Imaging and Cardiology Chest Xray: report reviewed Stress Test: report reviewed Echo: report reviewed Other Results: CTA report reviewed. - EKG Interpretation EKG results cardiology: personally reviewed (ECG with sinus rhythm, HR 83.), other (Telemetry reviewed with average HR 81, sinus rhythm. Rare PVCS noted.) Consult Discharge Plan - Plan Referrals: Yany Lowe PAC [Physician Casting Machine Operator Automatic] - 12/12/16 10:40 am Ector Wynne MD [Primary Care Provider] - 11/22/16 10:00 am
[2016-11-14] MEDS: *HR* Morphine 2 MG/ML SYRINGE IVP PRN ×3 (15:18→23:25)
--- NOTE | 2016-11-14 18:14 | Electrocardiograph Report ---
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
[2016-11-14] MEDS: Gabapentin 300 MG CAPSULE PO SCH (21:43)
[2016-11-15] MEDS: Ketorolac 30 MG/ML VIAL IVP PRN ×2 (00:40→10:13)
[2016-11-15] MEDS: *HR* Morphine 2 MG/ML SYRINGE IVP PRN ×3 (03:27→12:02)
[2016-11-15] MEDS: *HR* Heparin 5,000 UNIT/ML VIAL SQ SCH ×2 (05:36→16:12)
[2016-11-15] MEDS: diazePAM 10 MG TABLET PO SCH (07:51)
[2016-11-15] MEDS: Aspirin Enteric Coated 81 MG Tablet PO SCH (07:51)
[2016-11-15] MEDS: Metoprolol XL (24 HR) Succ 50 MG TAB.ER.24H PO SCH (07:51)
[2016-11-15] MEDS: Loratadine 10 MG TABLET PO SCH (07:51)
[2016-11-15] MEDS: Lithium Carbonate 300 MG CAPSULE PO SCH (07:51)
[2016-11-15] MEDS: Nicotine 14 MG PATCH.TD24 TD SCH (07:52)
[2016-11-15] MEDS: Pantoprazole 40 MG VIAL IVP SCH (07:53)
--- NOTE | 2016-11-15 09:38 | Event Note ---
Date of Encounter: 11/15/16 Time of Encounter: 09:00 - Cardiology Event Note Patient with re-current atypical chest pain. Negative stress test about 1 year ago. PLan for [facility] today. Risks versus benefits of [facility] explained to patient. Patient states understanding and agreeable for [facility]. All questions answered. Of note, patient reports ASA allergy. Patient states she can tolerate 81mg ASA. Patient states she has hives with 324mg ASA. updated on high dose ASA allergy. Further recommendations pending [facility].
--- NOTE | 2016-11-15 12:39 | Internal Med Progress Note ---
Date of Encounter: 11/15/16 Time of Encounter: 11:45 - Assessment and plan (1) Chest pain Current Visit: Yes Status: Acute Assessment and plan: Patient still complaining of chest pain and is requesting IV pain medication. Continue IV morphine and IV toradol. Cardiology on board, left heart catheter later today. Echocardiogram revealing ejection fraction of 60% and moderate diastolic dysfunction. Patient euvolemic on examination. Awaiting left heart catheter. If negative, could discharge later today pending clinical outcomes. Echocardiogram impressions: LVEF 60%. Normal left ventricle size and systolic function. There is evidence of moderate diastolic dysfunction of the left ventricle. RV function is normal. Size is not well evaluated. Mild mitral regurgitation. Mild tricuspid regurgitation. No pulmonary hypertension. 11/14/16 Patient noted per nursing to be bargaining that we can hold her benzos if she can get IV morphine or diluadid. Strong suspicion for drug seeking. On examination, lungs CTAB with good aeration and she is on room air. Trop negative x3. Chest pain is reproducible with palpation and consistent with musculoskeletal etiology. Negative stress test in September of 2015. This is her 9th visit in the last year for chest pain. Cardiology onboard- appreciate their recommendations. Echo pending. CTA negative for PE but with findings consistent with pulmonary vascular congestion, possible bronchitis. Possible discharge today pending echocardiogram and clinical outcomes. ITS Impressions Chest CTA 11/13/16 09:28 IMPRESSION: 1. No findings of pulmonary embolism. 2. Mild cardiomegaly with mild right ventricular hypertrophy and moderate concentric left ventricular hypertrophy. This could be related to pulmonary hypertension given dilation of the pulmonary arteries. 3. Subtle subendocardial hypodensity in the left ventricular apex potentially related to age-indeterminate myocardial ischemia. 4. Minimal to mild bronchial wall thickening potentially related to pulmonary vascular congestion or bronchitis. 5. Mosaic attenuation in the lungs potentially representing edema from pulmonary hypertension. Alternately, this could be related to small airways or small vessels disease. D/ / Anmol Gilmore MD / Anmol Gilmore MD Interpreting Provider: Anmol Gilmore MD Qualifiers: Chest pain type: unspecified Qualified Code(s): R07.9 - Chest pain, unspecified (2) Migraine Current Visit: Yes Status: Chronic Assessment and plan: patient denies vision changes or gait abnormalities. Qualifiers: Migraine type: with aura Status migrainosus presence: with status migrainosus Intractability: intractable Qualified Code(s): G43.111 - Migraine with aura, intractable, with status migrainosus (3) Chronic pain Current Visit: Yes Status: Chronic Assessment and plan: In review of her chart in [facility] and her [facility] report, she has been seen by multiple providers and has had multiple admissions for chest pain and for pain associated with her orthopedic surgeries. The source of her pain seems to oscillate between her chest, her back and her knee. She has had several short term pain medication prescriptions via several providers. When she is admitted to the hospitals, it appears as if she continually requests IV pain medications. Concern for possible drug seeking behavior as the source of her pain keeps changing. Will defer to her outpatient team for her chronic pain. (4) Bipolar 1 disorder Current Visit: No Status: Chronic Assessment and plan: mood and affect stable (5) Nicotine dependence with nicotine-induced disorder Current Visit: No Status: Chronic Assessment and plan: declines counseling Qualifiers: Nicotine product type: unspecified Qualified Code(s): F17.209 - Nicotine dependence, unspecified, with unspecified nicotine-induced disorders (6) COPD with asthma Current Visit: Yes Status: Chronic Assessment and plan: No acute exacerbation. Patient does endorse mild shortness of breath above her normal however her lungs are clear to auscultation bilaterally with good aeration. She is on room air. No increased work of breathing. (7) DVT prophylaxis Current Visit: Yes Status: Acute Assessment and plan: Subcutaneous heparin (8) Obesity (BMI 30-39.9) Current Visit: Yes Status: Chronic (9) Yeast infection Current Visit: Yes Status: Acute Assessment and plan: urinalysis consistent with yeast infection. Diflucan x1. - Subjective Interval history: Patient seen and examined. On examination, patient resting supine in bed. She continues to complain of chest pain that is located in the middle of her chest. She also endorses shortness of breath above her norm. She is requesting more pain medication. - Constitutional Vitals: Temp Pulse Resp BP Pulse Ox 98.0 F 70 16 157/83 96 11/15/16 11:19 11/15/16 11:19 11/15/16 11:21 11/15/16 11:19 11/15/16 11:21 General appearance: Present: cooperative, A&O X 3, pleasant, no acute distress, obese, answers questions appropriately - Head Head exam: Present: atraumatic, normocephalic - Eye Eye exam: Present: PERRL, conjuntiva pink, sclera anicteric Pupils: Present: PERRL - Neck Neck exam general surgery: Present: supple, trachea midline. Absent: lymphadenopathy - Respiratory Respiratory exam: Present: chest wall tenderness, decreased breath sounds. Absent: accessory muscle use, rales, respiratory distress, rhonchi, wheezes - Cardiovascular Cardiovascular exam: Present: RRR, +S1, +S2. Absent: diastolic murmur, gallop, rubs, systolic murmur - GI/Abdominal GI/Abdominal exam: Present: normal bowel sounds, soft, no peritoneal signs. Absent: distended, tenderness - Extremities Exam Extremities exam: Present: warm, radial pulses palpable and symetrical. Absent : calf tenderness, cyanotic, pedal edema - Neurological Exam Neurological exam: Present: alert, CN II-XII intact, oriented X3, no focal deficits, strengths equal and symetr throughout. Absent: pronater drift, facial droop, speech deficit - Skin Skin exam: Present: dry, intact, pallor, warm Internal Medicine: Result - Labs CBC & Chem 7: 11/14/16 04:33 11/14/16 04:33 - ABG Interpretation ABG results: PT/INR, D-dimer PT 11.8 Seconds (9.4-12.1) 11/14/16 04:33 D-Dimer 571 ng/mLFEU (0-500) H 11/13/16 09:01 Consult Discharge Plan - Plan Referrals: Yany Lowe PAC [Physician Banana Expert] - 12/12/16 10:40 am Ector Wynne MD [Primary Care Provider] - 11/22/16 10:00 am
[2016-11-15] MEDS ORDERED: Verapamil 5 MG/2 ML VIAL ONE (12:43)
[2016-11-15] MEDS ORDERED: *HR* Heparin 10,000 UNIT/10 ML VIAL ONE (12:43)
[2016-11-15] MEDS ORDERED: 0.9 % Sodium Chloride 1,000 ML ONE ×2 (12:43→14:02)
[2016-11-15] MEDS ORDERED: Heparin 1,000 UNITS/500 mL NS 500 ML ONE (12:43)
[2016-11-15] MEDS ORDERED: Nitroglycerin 1,000 MCG/10 ML VIAL IV ONE (12:44)
[2016-11-15] MEDS ORDERED: *HR* Midazolam HCl 2 MG/2 ML VIAL ONE ×3 (14:02→14:32)
[2016-11-15] MEDS ORDERED: *HR* FentaNYL (PF) 100 MCG/2 ML VIAL ONE ×2 (14:02→14:32)
[2016-11-15] MEDS ORDERED: Haloperidol Lactate 5 MG/ML VIAL IVP ONE (14:37)
--- NOTE | 2016-11-15 14:55 | Event Note ---
Date of Encounter: 11/15/16 Time of Encounter: 14:54 - Cardiology Event Note Per discussion with . [facility] with no intervention needed. Cardiology will sign off and will follow in outpatient setting. Follow up set.
--- NOTE | 2016-11-15 15:26 | Invasive Diagnostic Lab Proc ---
Name: Virgie Chahal Date of Study: 11/15/2016 Date: 1970 Ht: 70.0in Medical Record#: [id number] Age: 46 Wt: 257.50lb Gender: Female BSA: 2.32 Order #: [id number] BMI: 36.95 Physicians Procedure Physician: Filiberto Rawls MD, [facility] Referring MD: Referring MD: Staff Name Position Time In Sites, Juana RT (R) Scrub 02:01 PM Juana Carter RT (R) Monitor 02:01 PM Simona Rivera RN Certified Pathology Assistant 02:01 PM Sites, Juana RT (R) Scrub 02:10 PM EmmaJuana zuniga RT (R) Monitor 02:10 PM Simona Rivera RN Certified Pathology Assistant 02:10 PM Indications Indication Unstable Angina Procedures Performed Procedure L HRT ARTERY/VENTRICLE ANGIO Pre-Procedure Checklist Informed consent is complete signed and on chart. H\\T\\P is on chart. ID band is on and ID verified with patient. Patient NPO for procedure The procedure was described for the patient and questions were answered. Blood Pressure: 132/92 ECG is on chart. Plan of Care Patient will tolerate the procedure without complications. Adequate level of comfort will be maintained. Hemodynamics will remain stable Patient will recover from procedure without complications. Respiratory function will be maintained. Cardiac rhythm will remain stable. Patient temperature will be maintained. Patient and/or family have verbalized understanding of the procedure. Patient Education Chief Complaint/Reason for Test: Cardiac Cath Developmental Category: Adult (18-64 years) Developmentally Appropriate for Age: Yes Learning Barriers: None Education Needs: Procedure Education Method: Verbal Information Taught: Cardiac Cath Educational Evaluation: Able to repeat information Intravenous Access Time IV Size Location DC'd Fluid/Drip Rate Units RN 18g 1 /" Patent On Arrival Lt Antecubital 0.9NaCl 25 ml/hr Simona Rivera RN Allergies codeine aspirin lisinopril meperidine acetaminophen hydrocodone Vital Signs Time BP (mmHg) HR (bpm) O2 Sat. RR (bpm) LOC 01:25 PM 132 / 92 74 97 % 16 5 = Fully awake and oriented or at pre-proc level 02:12 PM / % 5 = Fully awake and oriented or at pre-proc level 02:43 PM 178 / 84 68 95 % 12 02:48 PM 177 / 90 69 94 % 14 02:53 PM 181 / 91 67 95 % 13 02:58 PM 180 / 91 65 92 % 25 03:03 PM 153 / 81 65 95 % 11 03:08 PM 166 / 83 % 02:08 PM 209 / 92 71 94 % 27 02:13 PM 211 / 99 74 97 % 20 02:18 PM 199 / 92 72 93 % 13 02:23 PM 193 / 93 73 92 % 17 02:28 PM 190 / 91 74 91 % 12 02:33 PM 186 / 90 70 93 % 15 02:38 PM 194 / 84 67 93 % 17 Procedural Medications Time Medication Dose Units Method Given By 02:11 PM Oxygen 2 L/min nasal cannula Simona Rivera RN 02:11 PM Versed 2 mg Intravenous Simona Rivera RN 02:12 PM Fentanyl 50 mcg Intravenous Simona Rivera RN 02:12 PM Benadryl 50 mg Intravenous Simona Rivera RN 02:24 PM Versed 2 mg Intravenous Simona Rivera RN 02:24 PM Fentanyl 25 mcg Intravenous Simona Rivera RN 02:32 PM Lidocaine 2% 1 ml Subcutaneous Filiberto Rawls MD, FACC 02:33 PM Versed 2 mg Intravenous Simona Rivera RN 02:33 PM Fentanyl 50 mcg Intravenous Simona Rivera RN 02:41 PM Lidocaine 2% 19 ml Subcutaneous Filiberto Rawls MD, FACC 02:43 PM Haldol 5 mg Intravenous Simona Rivera RN ASA Classification: CLASS II- Mild systemic disease (i.e. well-controlled diabetes, hypertension, asthma, cigarette smoking) Sondra Score Preprocedure Postprocedure Activity 2- Moves 4 extremities sustained head lift Activity Circulation 2- SBP +/= 20 points of pre-anesthetic level Circulation Consciousness 2- Awake and alert oriented x 3 Consciousness O2 Saturation 2- Able to maintain O2 satruation of 92% on room air O2 Saturation Respiratory 2- Able to deep breathe and cough well Respiratory Total Score 10 Total Score Contrast Agent: Isovue Diagnostic Contrast: 51 ml Total Contrast: 51 ml Fluoro Dose: 134 mGy Procedure Log Time Note Enter By 02:00 PM Pt arrived to collaborative physician 1 at 14:00 tsites 02:00 PM Patient charges- Angio tray pack, Navilyst 3mm J, Pulse Oximetry and ACIST tubing and transducer tsites 02:00 PM Case Delayed No tsites 02:01 PM Physician arrived 14: tsites 02: PM Meet and greet completed tsites 02: PM Sign in performed according to hospital policy. tsites 02:01 PM Procedure start 14: tsites 02:01 PM Suly Juana RT (R) Position: Scrub Time in: 14: tsites 02:01 PM Juana Carter RT (R) Position: Monitor Time in: 14: tsites 02:01 PM Simona Rivera RN Position: Certified Pathology Assistant Time in: 14: tsites 02:07 PM CathStat 02:07 PM Vitals capture started with the following parameters, Patient=Adult, Interval=5 min, Initial Amhjmwdp=266 mmHg, Deflation Rate=5 mmHg, Cuff placed on Left Arm 02:07 PM Recorded ECG: HR=74 Condition=Condition 1 02:08 PM HR=71 bpm, AGOH=078/92 mmhg, SpO2=94.0 %, Resp=27 B/min, Comment=NSR 02:10 PM Pt arrived to collaborative physician 1 at 14:10 tsites 02:10 PM Juana Tubbs RT (R) Position: Scrub Time in: 14:10 tsites 02:10 PM Juana Carter RT (R) Position: Monitor Time in: 14:10 tsites 02:10 PM Simona Rivera RN Position: Certified Pathology Assistant Time in: 14:10 tsites 02:10 PM Patient charges- Angio tray pack, Navilyst 3mm J, Pulse Oximetry and ACIST tubing and transducer tsites 02:10 PM IV Supplies used: J loop Angio Cath. tsites 02:10 PM Case Delayed No tsites 02:11 PM Case Start 02:11 PM Hair removed from procedure site in holding area using clippers. Right groin, right wrist prepped with Chloraprep by Juana Carter (R), safety strap applied then patient was draped. Skin intact. tsites 02:11 PM Physician arrived 14:11 tsites 02:11 PM Meet and greet completed tsites 02:11 PM Sign in performed according to hospital policy. tsites 02:11 PM Procedure start 14:11 tsites 02:11 PM ASA Class CLASS II- Mild systemic disease (i.e. well-controlled diabetes, hypertension, asthma, cigarette smoking) tsites 02:11 PM Time: 14:11 Oxygen on at 2 L/min per nasal cannula by Simona Rivera RN 02:12 PM Time: 14:11 Versed 2 mg Intravenous Given by Simona Rivera RN 02:12 PM Time: 14:12 Fentanyl 50 mcg Intravenous Given by Simona Rivera RN 02:12 PM Time: 14:12 Benadryl 50 mg Intravenous Given by Simona Rivera RN 02:12 PM Time: 14:12 Patient comfortable and pain free: Yes 02:12 PM Time: 14:12LOC: 5 = Fully awake and oriented or at pre-proc level ts 02:13 PM Clinical Presentation: Unstable angina tsites 02:13 PM HR=74 bpm, ZENW=363/99 mmhg, SpO2=97.0 %, Resp=20 B/min, Comment=NSR 02:18 PM HR=72 bpm, WGHT=260/92 mmhg, SpO2=93.0 %, Resp=13 B/min, Comment=NSR 02:23 PM HR=73 bpm, VTMY=641/93 mmhg, SpO2=92.0 %, Resp=17 B/min, Comment=NSR 02:24 PM Time: 14:24 Versed 2 mg Intravenous Given by Simona Rivera RN [facility] 02:24 PM Time: 14:24 Fentanyl 25 mcg Intravenous Given by Simona Rivera RN [facility] 02:28 PM HR=74 bpm, GRJX=621/91 mmhg, SpO2=91.0 %, Resp=12 B/min, Comment=NSR 02:31 PM Time out performed according to hospital policy 02:32 PM Time: 14:32 1 ml Lidocaine 2% to right radial Subcutaneous Given by Filiberto Rawls MD, [facility] dsp 02:33 PM Time: 14:33 Versed 2 mg Intravenous [facility] 02:33 PM HR=70 bpm, PPZY=697/90 mmhg, SpO2=93.0 %, Resp=15 B/min, Comment=NSR 02:33 PM Time: 14:33 Fentanyl 50 mcg Intravenous Given by Simona Rivera RN [facility] 02:38 PM HR=67 bpm, GRHN=721/84 mmhg, SpO2=93.0 %, Resp=17 B/min, Comment=NSR 02:39 PM Prepping groin for access dspell 02:42 PM Time: 14:41 19 ml Lidocaine 2% to right groin Subcutaneous Given by Filiberto Rawls MD, [facility] dspell 02:43 PM HR=68 bpm, VLWV=873/84 mmhg, SpO2=95.0 %, Resp=12 B/min, Comment=NSR 02:43 PM Time: 14:43 Haldol 5 mg Intravenous Given by Simona Rivera RN dspell 02:43 PM Access obtained by percutaneous puncture. 6Fr 10cm Terumo [place] sheath placed in right Femoral artery. [id number] dspell 02:44 PM Recorded Pressure: Ao, HR=68, Condition=Condition 1 (Aorta) Ao 132/89/109 02:44 PM 5Fr FL 4 catheter inserted over the wire [facility] dspell 02:44 PM 0.035 145cm Navilyst 3mmJ wire [id number] dspell 02:44 PM LCA angiography performed in multiple views. dspell 02:45 PM Catheter removed dspell 02:45 PM 5Fr FR 4 catheter inserted over the wire [facility] dspell 02:45 PM RCA angiography performed in multiple views. dspell 02:46 PM Recorded Pressure: Ao, HR=69, Condition=Condition 1 (Aorta) Ao 137/101/120 02:47 PM Catheter removed dspell 02:47 PM 5Fr Pigtail catheter inserted over the wire [facility] dspell 02:47 PM Catheter selectively placed in left ventricle dspell 02:48 PM HR=69 bpm, GWUY=022/90 mmhg, SpO2=94.0 %, Resp=14 B/min, Comment=NSR 02:48 PM Recorded Pressure: LV, HR=68, Condition=Condition 1 (Left Ventricle) LV 154/27/38 02:48 PM Bolus angiogram of left Ventricle complete: 10 ml/sec for a total of 20 mls dspellman 02:48 PM Recorded Pressure: LV, Ao, HR=71, Condition=Condition 1 (Left Ventricle) LV 129/8/23, (Aorta) Ao 157/100/127 02:49 PM Catheter removed dspell 02:49 PM Bolus angiogram of right Femoral complete: 4 ml/sec for a total of 7 mls dspellman 02:50 PM Recorded Pressure: Ao, HR=68, Condition=Condition 1 (Aorta) Ao 161/88/115 02:50 PM Procedure completed at 14:50 dspellman 02:51 PM Sign out completed: Radiation Dose 134.08 mGy Fluoro Time: 1.3 Isovue 370 - 200ml contrast 51 ml given by Filiberto Rawls MD, [facility]. Complications: NoneCardiac Rehab Consult needed: NoConfirmed administered medications: Yes dspellman 02:51 PM Isovue 370 - 200ml,1 Bottle(s) used. dspellman 02:52 PM Arterial sheath pulled, Mynx closure device used and was un Successful Pressure held x 15 minutes by Sites, Juana RT(R) dspell 02:52 PM Post ECG NSR dspellman 02:53 PM HR=67 bpm, WHVZ=221/91 mmhg, SpO2=95.0 %, Resp=13 B/min, Comment=NSR 02:58 PM HR=65 bpm, ZWEC=325/91 mmhg, SpO2=92.0 %, Resp=25 B/min, Comment=NSR 03:02 PM Post Blood Pressure 180/91 dspellman 03:02 PM 15:02 Post Pulses Bilateral DP \\T\\ PT 2+ dspellman 03:02 PM Information taught Cardiac Cath and Mynx dspellman 03:02 PM Education needs Procedure, Plan of Care, and Responsibilities of Patient in Care dspellman 03:03 PM Learning barriers :None dspellman 03:03 PM HR=65 bpm, MUYM=559/81 mmhg, SpO2=95.0 %, Resp=11 B/min 03:03 PM Education Methods Verbal dspellman 03:03 PM Education evaluation Able to repeat information dspellman 03:03 PM Site status No bleeding/hematoma - Rt Groin as reported by Sites, Juana RT (R) at 15:03 dspellman 03:08 PM WZLK=169/83 mmhg 03:08 PM Opsite applied dspellman 03:13 PM Report given to Fabricio WALKER Pt taken to Room #48. 15:12 dspellman 03:13 PM Patient out of room: 15:13 dspellman 03:14 PM Family placed in none available. dspellman 03:14 PM Complications: None dspellman 03:14 PM Fluoro Time: 1.3 dspellman 03:14 PM Isovue 370 - 200ml contrast 51 ml given by Filiberto Rawls MD, [facility]. dspell 03:14 PM Radiation Dose 134.08 mGy dspchristal Complications Complication None None Hemodynamics Pressures Site Systolic/A Wave Diastolic/V Wave Mean AO 132 89 109 AO 137 101 120 LV 154 27 38 LV 129 8 23 AO 157 100 127 AO 161 88 115 Post Procedure Information Blood Pressure: 180/91 mmHg Rhythm: NSR Site Checks Time Location Status Staff Sheath In? Note 03:03 PM Rt Groin No bleeding/hematoma Sites, Juana RT (R) Pulses Time Site Pre-Procedure Post-Procedure Note 11/15/2016 1:25:00 PM Bilateral DP \\T\\ PT 2+ 3:02:00 PM Bilateral DP \\T\\ PT 2+ Updated by Juana Carter RT (R) on 11/15/2016 3:20:47 PM Juana Carter RT electronically signed on 11/15/2016 3:21:40 PM with status of Final
--- NOTE | 2016-11-15 15:43 | Invasive Diagnostic Lab ---
Name: Virgie Chahal Date of Study: 11/15/2016 Date: 1970 Ht: 177.8 cm /70.0 in Medical Record#: [id number] Age: 46 Wt: 116.8 kg / 257.50 lb Account/Order#: [id number] Gender: Female BSA: 2.32 Order #: [id number] Fluoro Dose: 134 mGy BMI: 36.95 Procedure Physician: Filiberto Rawls MD, FACC Referring MD: Referring MD: Procedures Performed: LEFT HEART CATH Indications: Unstable Angina Impressions: Minimal coronary artery disease, by appearance I suspect diffuse negative remodeling as she has relatively small coronaries The left ventricle is normal and has normal contractility EF 50% Recommendations: Optimal medical therapy of patient's disease. Aggressive risk factor modification. Smoking avoidance History/Risk Factors: gerd Hypertension Current/Recent Smoker Chronic Lung Disease Procedure Access obtained in the right Femoral artery by percutaneous puncture Complications: None, None Contrast: Isovue 51ml Hemodynamics: Pressures Site Systolic/ A Wave Diastolic/ V Wave End Diastolic/ Mean HR AO 132 89 109 68 AO 137 101 120 69 LV 154 27 38 68 LV 129 8 23 71 AO 157 100 127 71 AO 161 88 115 68 LV Ventriculography Ejection Method: LV Gram Ejection Fraction: 50% Wall Motion: TREVINO Anterobasal Normal Anterolateral Normal Apical: Normal Inferoapical Normal Inferobasal Normal Coronary Dominance: right Lesion Findings/Interventions * Left Main Coronary Artery The LMCA is angiographically free of disease. * Left Anterior Descending The LAD has luminal irregularities The 1st Diagonal has luminal irregularities * Circumflex The Circumflex has luminal irregularities The 1st Marginal has luminal irregularities * Right Coronary Artery The RCA has luminal irregularities The Right PDA has luminal irregularities Updated by Juana Carter, RT (R) on 11/15/2016 3:18:13 PM Filiberto Rawls MD, FACC electronically signed on 11/15/2016 3:36:39 PM with status of Final
[2016-11-15] MEDS: Azithromycin 500 MG in D5% in Water 250 ML IVPB SCH (16:04)
--- NOTE | 2016-11-15 17:36 | Discharge Summary ---
Date of Encounter: 11/15/16 Time of Encounter: 11:30 (and 1700) - Discharge Diagnosis (1) Chest pain Priority: Primary Status: Ruled-out Comments: Left heart catheter without interventions indicated. Qualifiers: Chest pain type: unspecified Qualified Code(s): R07.9 - Chest pain, unspecified (2) Migraine Priority: Secondary Status: Chronic Comments: Follow-up outpatient Qualifiers: Migraine type: with aura Status migrainosus presence: with status migrainosus Intractability: intractable Qualified Code(s): G43.111 - Migraine with aura, intractable, with status migrainosus (3) Chronic pain Priority: Secondary Status: Chronic Comments: In review of her chart in [facility], [facility] and her [facility] report, she has been seen by multiple providers and has had multiple admissions for chest pain and for pain associated with her orthopedic surgeries. The source of her pain seems to oscillate between her chest, her back and her knee. She has had several short term pain medication prescriptions via several providers. When she is admitted to the hospitals, it appears as if she continually requests IV pain medications. Concern for possible drug seeking behavior as the source of her pain keeps changing. Will defer to her outpatient team for her chronic pain. (4) Bipolar 1 disorder Priority: Secondary Status: Chronic Comments: Flat affect during admission otherwise stable mood (5) Nicotine dependence with nicotine-induced disorder Priority: Secondary Status: Chronic Comments: Declined counseling Qualifiers: Nicotine product type: unspecified Qualified Code(s): F17.209 - Nicotine dependence, unspecified, with unspecified nicotine-induced disorders (6) COPD with asthma Priority: Secondary Status: Chronic Comments: No acute exacerbation (7) DVT prophylaxis Priority: Primary Status: Acute Comments: Subcutaneous heparin while admitted (8) Obesity (BMI 30-39.9) Priority: Secondary Status: Chronic (9) Yeast infection Priority: Primary Status: Acute Comments: urinalysis consistent with yeast infection. Diflucan x1. - Discharge Medications Prescriptions: Aspirin Enteric Coated [Aspirin EC] 81 mg PO DAILY #30 tablet. Atorvastatin [Lipitor] 20 mg PO HS #60 tablet Home Medications: Albuterol Sulfate [Albuterol Inhaler] 2 puff IH Q4HR PRN 02/08/15 [History] Escitalopram [Lexapro] 20 mg PO QAM 02/08/15 [History] Esomeprazole Magnesium [Nexium] 40 mg PO DAILY 02/08/15 [History] Gabapentin [Neurontin] 300 - 600 mg PO HS 02/08/15 [History] Quetiapine Fumarate [Seroquel] 400 mg PO HS 02/08/15 [History] Tizanidine [Zanaflex] 4 mg PO QID PRN 02/08/15 [History] Acetaminophen/Butalbital/Caffe [Fioricet] 1 tab PO Q6HR PRN 09/06/16 [History] Buspirone HCl [Buspar] 10 mg PO BID 09/06/16 [History] [place] Carbonate 300 mg PO BID 09/06/16 [History] Loratadine [Claritin] 10 mg PO DAILY 09/06/16 [History] Losartan Potassium [Cozaar] 100 mg PO DAILY 09/06/16 [History] Metoprolol Succinate 100 mg PO DAILY 09/06/16 [History] diazePAM [Valium] 10 mg PO BID 09/06/16 [History] Oxycodone HCl/Acetaminophen [Percocet 5-325 mg Tablet] 1 each PO Q6H #7 tablet 11/12/16 [Rx] Naproxen Sod/Diphenhydram HCl [Aleve Pm Caplet] 1 tab PO HS PRN 11/13/16 [ History] Aspirin Enteric Coated [Aspirin EC] 81 mg PO DAILY #30 tablet. 11/15/16 [Rx] Atorvastatin [Lipitor] 20 mg PO HS #60 tablet 11/15/16 [Rx] Allergies/Adverse Reactions: Allergies acetaminophen [From [place]] Allergy (Verified 11/13/16 08:13) Rash aspirin [ASA] Allergy (Verified 11/13/16 08:13) Hives hydrocodone Allergy (Verified 11/13/16 08:13) Hives meperidine [From Demerol] Allergy (Verified 11/13/16 08:13) Hives lisinopril Adverse Reaction (Verified 11/13/16 08:13) Cough Procedures/tests Complete & Pending: Procedures Performed prior 72 hours Category Date Time Status CL Cardiac Catheterization [CL] Routine Band Tier 11/14/16 18:08 Completed EV echocardiogram Routine Y 11/14/16 13:18 Completed Date of admission: 11/13/16 12:37 Primary care physician: Ector Wynne MD Consults: 11/13/16 13:11 Consult to Occupational Therapy [CONS] Routine Comment: Evaluate, develop and implement POC Reason for Consult: Patient reports difficulty ambulating following 7 surgeries on left knee 11/13/16 13:12 Consult to Physical Therapy [CONS] Routine Comment: Evaluate, develop and implement POC Reason for Consult: Patient reports difficulty ambulating following 7 surgeries on left knee 11/13/16 13:36 Consult to Cardiology [CONS] Routine Comment: Consulting Provider: Cardiology Ethel Reason for Consult: CTA chest suspicious for myocardial ischemia per radiology. Time Notified: 13:37 Call Completed: Yes Discharging clinician: Debo Weathers Anticipated date of discharge: 11/15/16 - Patient Status Disposition: Home, Self-Care Condition: Fair Functional capacity at discharge: independent ambulation Overall status at discharge: patient is back to baseline - Discharge Instructions Follow Up With: Yany Lowe PAC [Physician Furnace Mechanic Helper] - 12/12/16 10:40 am Ector Wynne MD [Primary Care Provider] - 11/22/16 10:00 am Additional Instructions: Follow-up with primary care provider and orthopedic team as scheduled - Diet and Activity Activity: increase activity as tolerated Diet: low fat, low cholesterol, low salt diet Hospital course: Ms. Chahal is a 46 year old female with past medical history of COPD, fibromyalgia, GERD, hyperlipidemia, hypertension, migraines, bipolar disorder, one pack per day smoker. Patient presented to the emergency department chief complaint chest pain and shortness of breath 5 days. Patient was seen at [place] emergency department on the day prior to presentation she was discharged home and instructed to return if her chest pain continued or worsened. She described her pain as mid sternally located, sharp and stabbing and radiated to her back as well as her right jaw, neck. She also endorsed nausea, abdominal pain, worsening shortness of breath with exertion. She denied diaphoresis, vomiting, fever or weakness. Workup in the emergency department unremarkable. Patient was admitted to the hospitalist service for further evaluation and management. Chest CTA negative for PE however did reveal possible pulmonary hypertension, possible infarct involving the LV apex, and pulmonary vascular congestion versus bronchitis. Echocardiogram unremarkable with ejection fraction of 60%, moderate diastolic dysfunction, no evidence of pulmonary hypertension. Patient was euvolemic on examination throughout this admission. At this point, her troponins were negative 3 and she had had 2 negative stress tests over the past couple years. Cardiology was brought on board who initially recommended medical management however the patient was very concerned and preferred a left heart catheter. Risks versus benefits were discussed and the patient decided to proceed with a left heart catheter. Left heart catheter was unremarkable with no interventions indicated. For further risk factor stratification, she was started on low-dose statin. She has a documented allergy to aspirin however she states she can tolerate a baby aspirin but she states when she takes a full strength aspirin that she has hives. She was started on a baby aspirin as well. Of note, in review of her chart in [facility] and her [facility] report, she has been seen by multiple providers and has had multiple admissions for chest pain and for pain associated with her orthopedic surgeries. The source of her pain seems to oscillate between her chest, her back and her knee. She has had several short term pain medication prescriptions via several providers. When she is admitted to the hospitals, it appears as if she continually requests IV pain medications. She was even bargaining with the nursing staff during this admission that she would hold her benzos if she was able to get IV morphine or Dilaudid. Concern for possible drug seeking behavior as the source of her pain keeps changing. Will defer to her outpatient team for her chronic pain. Also of note, this was the patient's ninth visit in the last year for chest pain. She was discharged home in stable condition with close outpatient follow-up recommended. ITS Impressions Chest CTA 11/13/16 09:28 IMPRESSION: 1. No findings of pulmonary embolism. 2. Mild cardiomegaly with mild right ventricular hypertrophy and moderate concentric left ventricular hypertrophy. This could be related to pulmonary hypertension given dilation of the pulmonary arteries. 3. Subtle subendocardial hypodensity in the left ventricular apex potentially related to age-indeterminate myocardial ischemia. 4. Minimal to mild bronchial wall thickening potentially related to pulmonary vascular congestion or bronchitis. 5. Mosaic attenuation in the lungs potentially representing edema from pulmonary hypertension. Alternately, this could be related to small airways or small vessels disease. D/ / Anmol Gilmore MD / Anmol Gilmore MD Interpreting Provider: Anmol Gilmore MD Echocardiogram impressions: LVEF 60%. Normal left ventricle size and systolic function. There is evidence of moderate diastolic dysfunction of the left ventricle. RV function is normal. Size is not well evaluated. Mild mitral regurgitation. Mild tricuspid regurgitation. No pulmonary hypertension. Left heart catheter impressions: minimal coronary artery disease, by appearance I suspect diffuse negative remodeling as she has relatively small coronaries. The left ventricle is normal and has normal contractility ejection fraction 50% . Recommendations: Optimal medical therapy of patient's disease. Aggressive risk factor modification. Smoking avoidance. - Time Spent with Patient Total time spent providing and/or coordinating discharge services: - Constitutional Vitals: Temp Pulse Resp BP Pulse Ox 98.0 F 70 16 157/83 94 11/15/16 11:19 11/15/16 11:19 11/15/16 16:22 11/15/16 11:19 11/15/16 16:22 General appearance: Present: cooperative, A&O X 3, pleasant, no acute distress, obese, answers questions appropriately - Head Head exam: Present: atraumatic, normocephalic - Eye Eye exam: Present: PERRL, conjuntiva pink, sclera anicteric Pupils: Present: PERRL - Neck Neck exam general surgery: Present: supple, trachea midline. Absent: lymphadenopathy - Respiratory Respiratory exam: Present: decreased breath sounds. Absent: accessory muscle use, rales, respiratory distress, rhonchi, wheezes - Cardiovascular Cardiovascular exam: Present: RRR, +S1, +S2. Absent: diastolic murmur, gallop, rubs, systolic murmur - GI/Abdominal GI/Abdominal exam: Present: normal bowel sounds, soft, no peritoneal signs. Absent: distended, tenderness - Extremities Exam Extremities exam: Present: warm, radial pulses palpable and symetrical. Absent : calf tenderness, cyanotic, pedal edema - Neurological Exam Neurological exam: Present: alert, CN II-XII intact, oriented X3, no focal deficits, strengths equal and symetr throughout. Absent: pronater drift, facial droop, speech deficit - Skin Skin exam: Present: dry, intact, pallor, warm
[2016-11-15 17:45] VITALS: BP 143/85
== END 2016-11-15 18:25 | disposition home or self-care (01) ==
LOC: 3BNU 08:09 → EMEROO 08:09 → SUATTDRO 12:37 → 3BNU 13:08
PROVIDERS: ADMIT Internal Medicine; ATTEND Nurse Practitioner Family

== ENCOUNTER 2017-01-29 16:41 | Observation (INO) ==
--- NOTE | 2017-01-29 17:40 | Emergency Department Note ---
Disposition Clinical Impression: Atypical chest pain Disposition: Admitted As Inpatient Condition: Fair Referrals: NONE,PCP [Non-Partnered Physician] - Forms: Work/School Release, ED Satisfaction Letter Time of Disposition: 22:13 General Adult HPI - General Chief complaint: ED Chest Pain Stated complaint: Back/Jaw/Chest Pain/ANNMARIE Time Seen by Provider: 01/29/17 17:32 Source: patient Mode of arrival: ambulatory Limitations: no limitations Nursing Notes Reviewed: Yes Vital Signs Reviewed: Yes - History of Present Illness HPI Narrative: Patient presents to the ED with the chief complaint of lung pain, chest pain and jaw pain. Patient has a history of fibromyalgia and angina. States that last night she started having some "lung pain" in her right lung. She woke up this morning and was having worsening pain. She states that it hurts to take a deep breath and that she cannot fully take a deep breath because it feels like something is catching in her lungs. States she has been unable to cough anything up, but feels like she needs to. Denies any fever or chills. She has been having some intermittent chest heaviness and discomfort that she reports as retrosternal. She was having this pain radiating into her left jaw, but this resolved just prior to arrival. She is still having some chest discomfort at this time. Denies any nausea or vomiting. Denies any abdominal pain. No swelling in her legs. She did have a total knee replacement in August of this year and states that she also drove to and october. Otherwise, she has no history of DVT, PE , malignancy, and is not on any exogenous estrogen. She reports that she had a heart catheter in October which showed a 66% blockage and this pain is very similar to that. Pain Scale: 10 - Related Data Home Medications Medication Instructions Recorded Confirmed Albuterol Sulfate [Albuterol 2 puff IH Q4HR PRN 02/08/15 12/05/16 Inhaler] Escitalopram [Lexapro] 20 mg PO QAM 02/08/15 12/05/16 Esomeprazole Magnesium [Nexium] 40 mg PO DAILY 02/08/15 12/05/16 Gabapentin [Neurontin] 300 - 600 mg PO HS 02/08/15 12/05/16 Quetiapine Fumarate [Seroquel] 400 mg PO HS 02/08/15 12/05/16 Tizanidine [Zanaflex] 4 mg PO QID PRN 02/08/15 12/05/16 Acetaminophen/Butalbital/Caffe 1 tab PO Q6HR PRN 09/06/16 12/05/16 [Fioricet] Buspirone HCl [Buspar] 10 mg PO BID 09/06/16 12/05/16 [place] Carbonate 300 mg PO BID 09/06/16 12/05/16 Loratadine [Claritin] 10 mg PO DAILY 09/06/16 12/05/16 Losartan Potassium [Cozaar] 100 mg PO DAILY 09/06/16 12/05/16 Metoprolol Succinate 100 mg PO DAILY 09/06/16 12/05/16 diazePAM [Valium] 10 mg PO TID 09/06/16 12/05/16 Nitroglycerin [Nitrostat] 1 tab SL AD 12/05/16 12/05/16 Previous Rx's Medication Instructions Recorded Aspirin Enteric Coated [Aspirin EC] 81 mg PO DAILY #30 tablet. 11/15/16 Potassium Chloride 20 meq PO DAILY #10 tab.er.prt 12/05/16 Allergies Allergy/AdvReac Type Severity Reaction Status Date / Time acetaminophen [From [place]] Allergy Rash Verified 11/19/16 16:24 aspirin [ASA] Allergy Hives Verified 11/19/16 16:24 hydrocodone Allergy Hives Verified 11/19/16 16:24 meperidine [From Demerol] Allergy Hives Verified 11/19/16 16:24 lisinopril AdvReac Cough Verified 11/19/16 16:24 All systems ED: reviewed and negative except as stated. Cardiovascular: Reports: chest pain, dyspnea on exertion Respiratory: Reports: cough, dyspnea. Denies: sputum production Gastrointestinal: Denies: vomiting Musculoskeletal: Reports: back pain (flank "lung pain") Psychiatric: Reports: anxiety Endocrine: Reports: fatigue Past Medical History - Past Medical History Attestation: Yes The following information was validated with the patient. Source: patient, old records reviewed, nursing notes reviewed Medical history: Reports: arthritis, asthma, COPD, fibromyalgia, GERD, hyperlipidemia, hypertension, migraine, osteoporosis, TIA Surgical history: Reports: , knee replacement (Left knee surgeries x7 with 1 revision), orthopedic, other, sinus surgery Psychiatric history: Reports: anxiety, bipolar, depression [employer] history: Reports: bilateral tubal ligation - Social History Smoking Status: Current every day smoker Smokeless Tobacco Status: No Alcohol use: Reports: occasionally Drug use: Reports: none Physical Exam - General Limitations: no limitations General appearance: alert, in no apparent distress - Head Head exam: atraumatic, normocephalic, normal inspection - Eye Eye exam: Present: normal appearance, PERRL, EOMI - ENT ENT exam: normal exam, normal oropharynx, mucous membranes moist - Neck Neck exam: Present: normal inspection, full ROM, trachea midline - Chest Chest inspection: Present: normal inspection, symmetric chest wall rise - Respiratory Respiratory exam: Present: wheezes (Patient has faint expiratory wheezes in superior lung portillo bilaterally with poor aeration inferiorly). Absent: normal lung sounds bilaterally, respiratory distress - Cardiovascular Cardiovascular exam: Present: regular rate, normal rhythm, normal heart sounds - Abdominal Exam Abdominal exam: Present: soft, Non-Tender. Absent: tenderness, distention, guarding, rebound, rigidity - Extremities Exam Extremities exam: Present: normal inspection, full ROM, normal capillary refill. Absent: tenderness, pedal edema - Back Exam Back exam: Present: normal inspection, full ROM. Absent: tenderness - Neurological Exam Neurological exam: Present: alert, oriented X3 - Psychiatric Psychiatric exam: Present: flat affect - Skin Skin exam: Present: warm, dry, intact, normal color Course Course Narrative: 46-year-old female presenting with chest pain and pleuritic "lung pain". Patient also requesting IV narcotic medication. Patient is a history of fibromyalgia and chronic angina. We will obtain labs, chest x-ray, including troponin and d-dimer. Likely a COPD exacerbation, so we will treat with reading treatments initially with further disposition pending. Vital signs are stable other than hypertension but patient reports her blood pressure has been running high. She is not tachycardic or hypoxic - Reevaluation(s) Reevaluation #1: Patient had 3 separate IVs that were unable to have contrast given through despite being placed of ultrasound above the antecubital fossa. We will evaluate with a VQ scan. Patient remains complaining of 2 separate types of chest pain. She did report a recent catheter in October which showed a 66% blockage. She states this pain feels different than that but that she also does have her anginal type pain as well. We will admit to the hospitalist service for further evaluation of her chest discomfort, pending VQ scan Vital Signs Temperature 98.5 F 01/29/17 16:45 Pulse Rate 78 01/29/17 16:45 Respiratory Rate 14 01/29/17 16:45 Blood Pressure 164/86 01/29/17 16:45 O2 Sat by Pulse Oximetry 96 01/29/17 16:45 Temperature 98.5 F 01/29/17 16:45 Pulse Rate 75 01/29/17 20:00 Respiratory Rate 18 01/29/17 20:00 Blood Pressure 153/97 01/29/17 20:00 O2 Sat by Pulse Oximetry 96 01/29/17 20:00 Oxygen Delivery Oxygen Delivery Room Air Medical Decision Making - Medical Records Medical records reviewed: Yes I reviewed the patient's medical records. - Lab Data Lab results reviewed: Yes I reviewed the patient's lab results. Result diagrams: 01/29/17 18:03 01/29/17 18:03 Lab Results 01/29/17 01/29/17 01/29/17 Range/Units 18:03 18:03 18:03 WBC 12.2 H (4.3-11.1) K/mcL RBC 4.47 (3.82-4.97) M/mcL Hgb 12.6 (11.5-15.4) g/dL Hct 39.0 (35.3-44.9) % MCV 87.2 (83.0-100.0) fL MCH 28.2 (28.0-33.3) pg MCHC 32.3 (31.6-35.5) g/dL RDW 17.1 H (11.5-14.5) % Plt Count 247 (140-400) K/mcL MPV 9.4 (9.4-12.4) fL Immature Gran % 0.6 (0-4) % Seg Neutrophils % 67.4 % Lymphocytes % 24.6 % Monocytes % 4.3 % Eosinophils % 2.4 % Basophils % 0.7 % Neutrophils # 8.2 (1.6-8.9) K/mcL Lymphocytes # 3.0 (0.6-4.6) K/mcL Monocytes # 0.5 (0.0-1.3) K/mcL Eosinophils # 0.3 (0.0-0.6) K/mcL Basophils # 0.1 (0.0-0.2) K/mcL PT 12.0 (9.4-12.1) Seconds INR 1.1 APTT 31.6 (26.0-36.0) Seconds D-Dimer 514 H (0-500) ng/mLFEU Sodium (136-145) mEq/L Potassium (3.5-4.5) mEq/L Chloride (98-109) mEq/L Carbon Dioxide (19-29) mEq/L BUN (7-20) mg/dL Creatinine (0.57-1.11) mg/dL Est GFR ( Amer) (> 60) Est GFR (Non-Af Amer) (> 60) BUN/Creatinine Ratio (6-26) Glucose (70-99) mg/dL Calculated Osmolality (280-300) Calcium (8.6-10.8) mg/dL Troponin I (0-0.03) ng/mL B-Natriuretic Peptide 37 (0-100) pg/mL 01/29/17 01/29/17 Range/Units 18:03 18:03 WBC (4.3-11.1) K/mcL RBC (3.82-4.97) M/mcL Hgb (11.5-15.4) g/dL Hct (35.3-44.9) % MCV (83.0-100.0) fL MCH (28.0-33.3) pg MCHC (31.6-35.5) g/dL RDW (11.5-14.5) % Plt Count (140-400) K/mcL MPV (9.4-12.4) fL Immature Gran % (0-4) % Seg Neutrophils % % Lymphocytes % % Monocytes % % Eosinophils % % Basophils % % Neutrophils # (1.6-8.9) K/mcL Lymphocytes # (0.6-4.6) K/mcL Monocytes # (0.0-1.3) K/mcL Eosinophils # (0.0-0.6) K/mcL Basophils # (0.0-0.2) K/mcL PT (9.4-12.1) Seconds INR APTT (26.0-36.0) Seconds D-Dimer (0-500) ng/mLFEU Sodium 136 (136-145) mEq/L Potassium 4.0 (3.5-4.5) mEq/L Chloride 104 (98-109) mEq/L Carbon Dioxide 21 (19-29) mEq/L BUN 16 (7-20) mg/dL Creatinine 0.82 (0.57-1.11) mg/dL Est GFR ( Amer) > 60 (> 60) Est GFR (Non-Af Amer) > 60 (> 60) BUN/Creatinine Ratio 20 (6-26) Glucose 123 H (70-99) mg/dL Calculated Osmolality 285 (280-300) Calcium 9.1 (8.6-10.8) mg/dL Troponin I 0.00 (0-0.03) ng/mL B-Natriuretic Peptide (0-100) pg/mL - Radiology Data Radiology results reviewed: Yes I reviewed the patient's radiology results. - EKG Data EKG #1 EKG attestation: Yes I reviewed and interpreted this EKG. EKG results narrative: Sinus rhythm, rate 77, MT interval 140, QRS 87, QTC 421, normal axis, LVH, which is changed from previous on 12/05/2016, otherwise no acute ischemic changes
--- NOTE | 2017-01-29 17:58 | Emergency Department Note ---
START Narrative - START START: I examined this patient and my medical decision-making was reviewed with the RN TRIAGE/PA/Advanced Practice Nurse/Resident Physician. I agree with the documented findings, disposition and treatment plan as described except to the extent set forth below. ED attending: Patient's emergency medicine resident Dr. Salmeron. Please see copy of this note for H&P evaluation and management and ED disposition. We both had independent [id number] time in contact with this patient. Briefly: A 36-year-old female history of fibromyalgia and coronary artery disease with angina presents with chest pain. Patient had studies done just a few months ago which showed about 65% blockage and coronary artery she says it feels similar to then. EKG shows no acute ischemic changes. Labs are pending. Disposition pending.
[2017-01-29 18:12] LABS: Basophils # 0.1 K/mcL (0.0-0.2); Basophils % 0.7 %; Eosinophils # 0.3 K/mcL (0.0-0.6); Eosinophils % 2.4 %; Hemoglobin 12.6 g/dL (11.5-15.4); Immature Granulocytes % 0.6 % (0-4); Lymphocytes % 24.6 %; Mean Corpuscular HGB Conc 32.3 g/dL (31.6-35.5); Mean Corpuscular Hemoglobin 28.2 pg (28.0-33.3); Mean Corpuscular Volume 87.2 fL (83.0-100.0); Mean Platelet Volume 9.4 fL (9.4-12.4); Monocytes # 0.5 K/mcL (0.0-1.3); Monocytes % 4.3 %; Neutrophils # 8.2 K/mcL (1.6-8.9); Platelet Count 247 K/mcL (140-400); Red Blood Count 4.47 M/mcL (3.82-4.97); Red Cell Distribution Width 17.1 % (11.5-14.5); Segmented Neutrophils % 67.4 %
[2017-01-29 18:19] LABS: INR 1.1
[2017-01-29 18:22] LABS: Activated Partial Thrombo Time 31.6 Seconds (26.0-36.0)
[2017-01-29 18:25] LABS: BUN/Creatinine Ratio 20 (6-26); Blood Urea Nitrogen 16 mg/dL (7-20); Calcium 9.1 mg/dL (8.6-10.8); Carbon Dioxide 21 mEq/L (19-29); Chloride 104 mEq/L (98-109); Glucose 123 mg/dL (70-99); Osmolality,Calculated 285 (280-300); Sodium 136 mEq/L (136-145); eGFR For African Americans > 60 (> 60); eGFR For Non-African Americans > 60 (> 60)
[2017-01-29] MEDS ORDERED: Ondansetron 4 MG/2 ML VIAL IVP ONE (18:58)
[2017-01-29] MEDS ORDERED: *HR* HYDROmorphone (PF) 1 MG/ML SYRINGE IVP ONE (18:58)
[2017-01-29] MEDS ORDERED: Ketorolac 15 MG/ML VIAL IVP ONE (20:54)
[2017-01-29] MEDS ORDERED: *HR* Promethazine 25 MG/ML VIAL IVP ONE (20:55)
[2017-01-29] MEDS ORDERED: Naloxone 0.4 MG/ML INJ IVP PRN (23:50)
[2017-01-29] MEDS ORDERED: *HR* Enoxaparin 120 MG/0.8 ML SYRINGE SQ ONE (23:54)
[2017-01-29] MEDS ORDERED: Nitroglycerin 0.4 MG TAB.SUBL SL PRN (23:59)
[2017-01-30] MEDS: *HR* Morphine 2 MG/ML SYRINGE IVP PRN ×2 (00:57→06:48)
[2017-01-30] MEDS: 0.9 % Sodium Chloride 1,000 ML IVC SCH ×2 (01:06→23:48)
--- NOTE | 2017-01-30 01:41 | Internal Med History&Physical ---
Date of Encounter: 01/30/17 Time of Encounter: 23:00 Assessment and Plan (1) Asthma Current visit: Yes Status: Acute Without SIGNS of exacerbation. Continue home medication. Qualifiers: Asthma severity: mild intermittent Asthma complication type: uncomplicated Qualified Code(s): J45.20 - Mild intermittent asthma, uncomplicated (2) Bipolar 1 disorder Current visit: No Status: Chronic Continue home medication (3) Obesity (BMI 30-39.9) Current visit: No Status: Chronic Need lifestyle modification. (4) Chest pain Current visit: No Status: Ruled-out patient has history of chest pain, for which she was admitted for several times. Patient had LHC on Nov 14 2016, results shows a minimal CAD, no stenting placed. - We will place patient on continuous cardiac monitoring. track 3 sets of troponin. - Continue home medications aspirin, beta avery, and statin. - Patient has positive d-dimer, recent travel, VQ scan shows intermediate possibility of PE. We will give Lovenox therapeutic dose for one dose now. Patient needs to consult iv line team to get good IV in AM and have CTA. She has no tachycardia or desaturation now. Qualifiers: Chest pain type: chest pain on breathing Qualified Code(s): R07.1 - Chest pain on breathing; R07.81 - Pleurodynia (5) DVT prophylaxis Current visit: No Status: Acute Patient was given therapeutic dose of Lovenox (6) Tobacco abuse Current visit: No Status: Chronic Smoking cessation education. On nicotine patch. (7) Hypertension Current visit: No Status: Chronic Cont home medications Qualifiers: Hypertension type: essential hypertension Qualified Code(s): I10 - Essential (primary) hypertension Internal Medicine - H&P: HPI Chief complaint: Chest pain Admitted From: Home Plans for Post Hospital Care: Home History of present illness: Ms. Chahal is a 46 year old female present to ER for chest pain. Patient said the pain started this morning, located on the mid chest, radiated to left withdrawal and the left arm. Patient has mild shortness of breath. Feel nausea but no vomiting. Denies diaphoresis. Patient has pain on deep breathing. Patient has recent nonproductive cough. Patient has history of recent travel to [place] about 20 days ago. Patient denies calf pain or leg edema. In emergency room, she was found d-dimer positive. CTA was ordered but cannot finish because patient has no good vein access. V/Q scan has been done, shows intermediate possibility for pulmonary embolism. Patient was admitted for further management. I discussed the CODE STATUS with patient. She is full code. Past Med Surg Social Fam HX - Past Medical History Medical history: arthritis, asthma, COPD, fibromyalgia, GERD, hyperlipidemia, hypertension, migraine, osteoporosis, TIA Psychiatric history: anxiety, bipolar, depression - Past Surgical History Surgical History: , knee replacement (Left knee surgeries x7 with 1 revision), orthopedic, other, sinus surgery - Social History Smoking Status: Current every day smoker Smokeless Tobacco Status: No Alcohol use: occasionally Drug use: none - Family History Brother Family Member Ethnicity: Non- Living Status: Father Family Member Ethnicity: Non- Living Status: Still Living Hx Family Cardiac Disorders: Yes (CHF, A-FIB) Hx Family Respiratory Disorders: Yes (COPD) Hx Family Cancer: Yes (Leukemia) Hx Family Endocrine Disorder: Yes (DM) Mother Family Member Ethnicity: Non- Living Status: Still Living Hx Family Cardiac Disorders: Yes Hx Family Respiratory Disorders: Yes Hx Family Endocrine Disorder: Yes (DM) Internal Medicine - H&P: Meds Albuterol Sulfate [Albuterol Inhaler] 2 puff IH Q4HR PRN 02/08/15 [History] Escitalopram [Lexapro] 20 mg PO QAM 02/08/15 [History] Esomeprazole Magnesium [Nexium] 40 mg PO DAILY 02/08/15 [History] Gabapentin [Neurontin] 300 - 600 mg PO HS 02/08/15 [History] Quetiapine Fumarate [Seroquel] 400 mg PO HS 02/08/15 [History] Tizanidine [Zanaflex] 4 mg PO QID PRN 02/08/15 [History] Acetaminophen/Butalbital/Caffe [Fioricet] 1 tab PO Q6HR PRN 09/06/16 [History] Buspirone HCl [Buspar] 10 mg PO BID 09/06/16 [History] [place] Carbonate 300 mg PO BID 09/06/16 [History] Losartan Potassium [Cozaar] 100 mg PO DAILY 09/06/16 [History] Metoprolol Succinate 100 mg PO DAILY 09/06/16 [History] diazePAM [Valium] 10 mg PO TID 09/06/16 [History] Aspirin Enteric Coated [Aspirin EC] 81 mg PO DAILY #30 tablet. 11/15/16 [Rx] Nitroglycerin [Nitrostat] 1 tab SL AD 12/05/16 [History] Atorvastatin [Lipitor] 40 mg PO HS 01/29/17 [History] Isosorbide MONOnitrate (24 HR) [Imdur] 30 mg PO DAILY 01/29/17 [History] Potassium Chloride 20 meq PO BID 01/29/17 [History] Quetiapine Fumarate [SEROquel] 100 mg PO BID 01/29/17 [History] Allergies acetaminophen [From [place]] Allergy (Verified 11/19/16 16:24) Rash aspirin [ASA] Allergy (Verified 11/19/16 16:24) Hives states she tolerates baby aspirin well; hives with full strength asa (11/15/16) . hydrocodone Allergy (Verified 11/19/16 16:24) Hives meperidine [From [place]] Allergy (Verified 11/19/16 16:24) Hives lisinopril Adverse Reaction (Verified 11/19/16 16:24) Cough All Systems PM: A 10-system review of systems was performed and is negative for pertinent findings except as documented above in the HPI. - Constitutional Vitals: Temp Pulse Resp BP Pulse Ox 97.7 F 75 20 155/92 97 01/29/17 22:55 01/29/17 22:55 01/29/17 22:55 01/29/17 22:55 01/29/17 22:55 General appearance: Present: A&O X 3, no acute distress, answers questions appropriately - Head Head exam: Present: atraumatic, normocephalic - Eye Eye exam: Present: PERRL, conjuntiva pink, sclera anicteric Pupils: Present: PERRL - Neck Neck exam general surgery: Present: supple, trachea midline. Absent: lymphadenopathy - Respiratory Respiratory exam: Present: chest wall tenderness, CTAB. Absent: accessory muscle use, rales, rhonchi, wheezes - Cardiovascular Cardiovascular exam: Present: RRR, +S1, +S2. Absent: diastolic murmur, gallop, rubs, systolic murmur - GI/Abdominal GI/Abdominal exam: Present: normal bowel sounds, soft, tenderness (Mild tenderness all around the belly, no rebound.), no peritoneal signs. Absent: distended - Extremities Exam Extremities exam: Present: warm, radial pulses palpable and symmetrical. Absent : calf tenderness, cyanotic, pedal edema - Neurological Exam Neurological exam: Present: CN II-XII intact, oriented X3, no focal deficits. Absent: pronater drift, facial droop, speech deficit - Skin Skin exam: Present: dry, intact Internal Med - H&P Results - Labs CBC & Chem 7: 01/29/17 18:03 01/29/17 18:03 - EKG Data -: EKG Interpreted by Myself EKG shows normal: sinus rhythm Rate: normal
[2017-01-30 02:49] LABS: Basophils # 0.1 K/mcL (0.0-0.2); Basophils % 0.7 %; Eosinophils # 0.3 K/mcL (0.0-0.6); Eosinophils % 2.7 %; Hemoglobin 12.3 g/dL (11.5-15.4); Immature Granulocytes % 0.5 % (0-4); Immature Platelets 3.1 % (1.1-6.1); Lymphocytes # 3.9 K/mcL (0.6-4.6); Lymphocytes % 32.6 %; Mean Corpuscular HGB Conc 32.4 g/dL (31.6-35.5); Mean Corpuscular Hemoglobin 28.8 pg (28.0-33.3); Mean Platelet Volume 9.9 fL (9.4-12.4); Monocytes # 0.6 K/mcL (0.0-1.3); Monocytes % 4.7 %; Neutrophils # 7.1 K/mcL (1.6-8.9); Platelet Count 250 K/mcL (140-400); Red Blood Count 4.27 M/mcL (3.82-4.97); Red Cell Distribution Width 17.2 % (11.5-14.5); Segmented Neutrophils % 58.8 %
[2017-01-30 03:00] LABS: BUN/Creatinine Ratio 18 (6-26); Blood Urea Nitrogen 14 mg/dL (7-20); Calcium 8.7 mg/dL (8.6-10.8); Carbon Dioxide 24 mEq/L (19-29); Chloride 102 mEq/L (98-109); Glucose 151 mg/dL (70-99); Magnesium 1.8 mg/dL (1.6-2.6); Osmolality,Calculated 283 (280-300); Potassium 3.7 mEq/L (3.5-4.5); Sodium 135 mEq/L (136-145); eGFR For African Americans > 60 (> 60); eGFR For Non-African Americans > 60 (> 60)
[2017-01-30] MEDS: diazePAM 10 MG TABLET PO SCH ×3 (10:20→20:42)
[2017-01-30] MEDS: Lithium Carbonate 300 MG CAPSULE PO SCH ×2 (10:20→20:43)
[2017-01-30] MEDS: Metoprolol XL (24 HR) Succ 50 MG TAB.ER.24H PO SCH (10:20)
[2017-01-30] MEDS: Aspirin Enteric Coated 81 MG Tablet PO SCH (10:21)
[2017-01-30] MEDS: Nicotine 21 MG PATCH.TD24 TD SCH (10:21)
--- NOTE | 2017-01-30 15:10 | Internal Med Progress Note ---
Date of Encounter: 01/30/17 Time of Encounter: 10:00 - Assessment and plan (1) Atypical chest pain Current Visit: Yes Status: Acute Assessment and plan: Patient reports atypical chest pain that began yesterday at rest. She said it is midsternal with radiation under her right rest in the right midaxillary area and into right inferior posterior ribs. She reports shortness of breath and nausea without diaphoresis. At its worst, the pain is 10/10, now she states is 9/10 pain is worse with movement and, deep inspiration, and palpation. She had LHC on 11/14/2016, results showed minimal CAD with no stenting, normal contractility EF 50%. At that time optimal medical therapy and aggressive risk factor modification were recommended. D-dimer was elevated this visit, V/Q scan was inconclusive. After adequate IV was established, CTA was performed and showed no evidence of pulmonary embolism or acute pulmonary abnormality. Chest x-ray was negative for any acute cardiopulmonary disease. Troponins were negative 3. Patient reports productive cough with green sputum, however, due to pain she is unable to get a deep enough breath to cough. I started Mucinex. This is most likely musculoskeletal chest pain in patient will take anti- inflammatory medications since she is allergic to acetaminophen. She was requesting Dilaudid from primary nurse. She did not speak to me about this. Continue telemetry NSAIDs for musculoskeletal chest pain continue to monitor labs, patient condition, vital signs. Chest CTA 01/29/17 00:00 IMPRESSION: No evidence of pulmonary embolism or acute pulmonary abnormality. D/ / Chepe Chavez MD / Chepe Chavez MD Interpreting Provider: Chepe Chavez MD Chest X-Ray 01/29/17 17:45 IMPRESSION: No acute cardiopulmonary disease. Mild cardiomegaly without failure. D/ / Ted Munoz MD / Ted Munoz MD Interpreting Provider: Ted Munoz MD Pulmonary Perfusion Imaging 01/29/17 20:27 IMPRESSION: Next superior segment left lower lobe defect with no focal pulmonary consolidation. These findings are intermediate probability for pulmonary embolism. D/ / Amy Cline Cha, MD / Amy Cline Cha, MD Interpreting Provider: Amy Cline Cha, MD (2) Asthma Current Visit: Yes Status: Acute Assessment and plan: No acute exacerbation. Continue home medications. Pt with faint wheezing heard posteriorly. Nebulizers as needed. Pt reports prod cough with green sputum, but states that due to pain, she can't take a deep breath to cough. Mucinex is ordered. Continue to monitor pt. Titrate 02 to maintain sats >92%. Qualifiers: Asthma severity: mild intermittent Asthma complication type: uncomplicated Qualified Code(s): J45.20 - Mild intermittent asthma, uncomplicated (3) Tobacco abuse Current Visit: Yes Status: Chronic Assessment and plan: Pt states that she would like to stop smoking. Pt will be sent home with nicotine patches. (4) Hypertension Current Visit: No Status: Chronic Assessment and plan: Pt is mildly hypertensive today. Will continue to monitor vital signs and wait for pharmacy to verify home medications and reconcile. Qualifiers: Hypertension type: essential hypertension Qualified Code(s): I10 - Essential (primary) hypertension (5) DVT prophylaxis Current Visit: No Status: Acute Assessment and plan: Pt up to bathroom with assistance, XU kevin. - Time Spent With Patient less than 15 minutes - Subjective Interval history: Pt was seen and assessed at 1000 this a.m. Pt reports midsternal chest pain with radiation under R breast and to right midaxillary area and to right mid back with associated nausea and SOB. She denies diaphoresis. She states that at it's worst, pain was 10/10, states it is not 9/10. Pain is worse with movement, deep inspiration and palpation. Pt is a 1/2 PPD smoker and states that she wants to quit. Is currently using nicotine patches and would like an rx for home. - Constitutional Vitals: Temp Pulse Resp BP Pulse Ox 97.8 F 77 16 152/90 96 01/30/17 11:10 01/30/17 11:10 01/30/17 11:10 01/30/17 11:10 01/30/17 11:10 General appearance: Present: cooperative, A&O X 3, pleasant, no acute distress, answers questions appropriately - Head Head exam: Present: normal inspection - Eye Eye exam: Present: normal appearance, conjuntiva pink - ENT ENT exam: Present: mucous membranes moist, normal exam, normal external ear exam - Neck Neck exam general surgery: Present: normal inspection. Absent: lymphadenopathy , tenderness - Respiratory Respiratory exam: Present: chest wall tenderness, decreased breath sounds, CTAB. Absent: rales, respiratory distress, rhonchi, stridor, wheezes Additional comments: Poor inspiratory effort due to pain. - Cardiovascular Cardiovascular exam: Present: RRR, +S1, +S2. Absent: clicks, diastolic murmur, gallop, systolic murmur - GI/Abdominal GI/Abdominal exam: Present: distended, normal bowel sounds, soft. Absent: hepatomegaly, tenderness - Extremities Exam Extremities exam: Present: full ROM, normal inspection, warm, radial pulses palpable and symmetrical. Absent: tenderness - Neurological Exam Neurological exam: Present: alert, oriented X3, no focal deficits, strengths equal and symetr throughout. Absent: facial droop, speech deficit - Skin Skin exam: Present: dry, intact, normal color, warm. Absent: rash Internal Medicine: Result - Labs CBC & Chem 7: 01/30/17 02:22 01/30/17 02:22 Labs: Short CBC 01/30/17 Range/Units 02:22 WBC 12.0 H (4.3-11.1) K/mcL Hgb 12.3 (11.5-15.4) g/dL Hct 38.0 (35.3-44.9) % Plt Count 250 (140-400) K/mcL Neutrophils # 7.1 (1.6-8.9) K/mcL BMP 01/30/17 02:22 Sodium 135 L Potassium 3.7 Chloride 102 Carbon Dioxide 24 BUN 14 Creatinine 0.78 Glucose 151 H Calcium 8.7 Cardiac Enzymes 01/30/17 01/30/17 Range/Units 02:22 06:45 Troponin I 0.00 0.00 (0-0.03) ng/mL - ABG Interpretation ABG results: PT/INR, D-dimer PT 12.0 Seconds (9.4-12.1) 01/29/17 18:03 D-Dimer 514 ng/mLFEU (0-500) H 01/29/17 18:03 - Impressions Impressions Abdomen/Pelvis CT 01/30/17 23:37 IMPRESSION: 1. No acute findings identified in the abdomen and pelvis. D/ / Buddy Teresa MD / Buddy Teresa MD Interpreting Provider: Buddy Teresa MD Consult Discharge Plan - Plan Referrals: Ector Wynne MD [Primary Care Provider] -
[2017-01-30] MEDS: Gabapentin 300 MG CAPSULE PO SCH (20:43)
[2017-01-30] MEDS ORDERED: NON-FORMULARY MEDICATION 1 EACH EACH (Quetiapine Fumarate [Seroquel] 400 MG) PO SCH (21:00)
[2017-01-31] MEDS: diazePAM 10 MG TABLET PO SCH ×3 (10:02→20:24)
[2017-01-31] MEDS: Metoprolol XL (24 HR) Succ 50 MG TAB.ER.24H PO SCH (10:02)
[2017-01-31] MEDS: Aspirin Enteric Coated 81 MG Tablet PO SCH (10:02)
[2017-01-31] MEDS: Lithium Carbonate 300 MG CAPSULE PO SCH ×2 (10:02→20:24)
[2017-01-31] MEDS: Nicotine 21 MG PATCH.TD24 TD SCH (10:03)
[2017-01-31] MEDS: tiZANidine 4 MG TABLET PO PRN ×2 (10:11→20:38)
--- NOTE | 2017-01-31 14:03 | Electrocardiograph Report ---
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
[2017-01-31 15:25] LABS: BUN/Creatinine Ratio 16 (6-26); Blood Urea Nitrogen 12 mg/dL (7-20); Carbon Dioxide 29 mEq/L (19-29); Chloride 104 mEq/L (98-109); Glucose 121 mg/dL (70-99); Osmolality,Calculated 283 (280-300); Potassium 4.6 mEq/L (3.5-4.5); Sodium 136 mEq/L (136-145); eGFR For African Americans > 60 (> 60); eGFR For Non-African Americans > 60 (> 60)
[2017-01-31] MEDS ORDERED: Metoclopramide 10 MG/2 ML VIAL IVP PRN (17:47)
[2017-01-31] MEDS ORDERED: Ketorolac 30 MG/ML VIAL IVP ONE (17:47)
--- NOTE | 2017-01-31 18:38 | Internal Med Progress Note ---
Date of Encounter: 01/31/17 Time of Encounter: 15:05 - Assessment and plan (1) Atypical chest pain Current Visit: Yes Status: Acute Assessment and plan: Today during assessment, pt states that her pain was manageable and was ready to go home. Pain is reproducible with movement, deep inspiration and palpation to right posterior ribs. She had LHC on 11/14/2016, results showed minimal CAD with no stenting, normal contractility EF 50%. At that time optimal medical therapy and aggressive risk factor modification were recommended. D-dimer was elevated this visit, V/Q scan was inconclusive. After adequate IV was established, CTA was performed and showed no evidence of pulmonary embolism or acute pulmonary abnormality. Chest x-ray was negative for any acute cardiopulmonary disease. Troponins were negative 3. Patient reports productive cough with green sputum, however, due to pain she is unable to get a deep enough breath to cough. I started Mucinex. This is most likely musculoskeletal chest pain in patient will take anti-inflammatory medications since she is allergic to acetaminophen. Continue telemetry NSAIDs for musculoskeletal chest pain continue to monitor labs, patient condition, vital signs. Chest CTA 01/29/17 00:00 IMPRESSION: No evidence of pulmonary embolism or acute pulmonary abnormality. D/ / Chepe Chavez MD / Chepe Chavez MD Interpreting Provider: Chepe Chavez MD Chest X-Ray 01/29/17 17:45 IMPRESSION: No acute cardiopulmonary disease. Mild cardiomegaly without failure. D/ / Ted Munoz MD / Ted Munoz MD Interpreting Provider: Ted Munoz MD Pulmonary Perfusion Imaging 01/29/17 20:27 IMPRESSION: Next superior segment left lower lobe defect with no focal pulmonary consolidation. These findings are intermediate probability for pulmonary embolism. D/ / Amy Cline Cha, MD / Amy Cline Cha, MD Interpreting Provider: Amy Cline Cha, MD (2) Asthma Current Visit: Yes Status: Acute Assessment and plan: No acute exacerbation. Continue home medications. Lungs clear and diminshed today. Nebulizers as needed. Pt reports prod cough with green sputum, but states that due to pain, she can't take a deep breath to cough. Continue to monitor pt. Titrate 02 to maintain sats >92%. Continue Mucinex Qualifiers: Asthma severity: mild intermittent Asthma complication type: uncomplicated Qualified Code(s): J45.20 - Mild intermittent asthma, uncomplicated (3) Tobacco abuse Current Visit: Yes Status: Chronic Assessment and plan: Pt states that she would like to stop smoking. Pt will be sent home with nicotine patches. (4) Hypertension Current Visit: No Status: Chronic Assessment and plan: Pt has been hypertensive today and has responded well to Hydralazine IV. Pt reports headache with hypertension. Continue to monitor vital signs Hydralzine IV prn for SBP >180 Qualifiers: Hypertension type: essential hypertension Qualified Code(s): I10 - Essential (primary) hypertension (5) DVT prophylaxis Current Visit: No Status: Acute Assessment and plan: Pt up to bathroom with assistance, XU kevin. (6) Headache Current Visit: No Status: Acute Assessment and plan: Pt had episode of HTN today and reports to primary RN that she had "the worst headache of my life." Pt was given Hydralazine IV for HTN and it responded well , however, headache remained. Pt was given Benadryl, Toradol, and Reglan IV for headache and CT head was ordered. Pt had no neurological deficits. Pt is in CT at this time and results are not back. Pt has been requesting different pain medication from primary RN all day and requested Dilaudid yesterday. I tend to feel like she is stalling going home. We will continue to monitor pt, bp, vitals CT results pending. Qualifiers: Headache type: other headache syndrome Qualified Code(s): G44.89 - Other headache syndrome - Time Spent With Patient less than 15 minutes - Subjective Interval history: Pt was seen and assessed at 1505. She reported improved and manageable pain at that time. I was prepared to discharge her when she became hypertensive and had "the worst headache of my life". BP was brought back to her baseline with Hydralazine IV, but pt became nauseated and reported her headache. Pt is in CT at this time. - Constitutional Vitals: Temp Pulse Resp BP Pulse Ox 98.3 F 71 16 168/92 96 01/31/17 15:21 01/31/17 15:21 01/31/17 15:21 01/31/17 16:48 01/31/17 15:21 General appearance: Present: cooperative, A&O X 3, pleasant, no acute distress, answers questions appropriately - Head Head exam: Present: normal inspection - Eye Eye exam: Present: normal appearance, conjuntiva pink - ENT ENT exam: Present: mucous membranes moist, normal exam, normal external ear exam - Neck Neck exam general surgery: Present: normal inspection. Absent: lymphadenopathy , tenderness - Respiratory Respiratory exam: Present: chest wall tenderness, CTAB. Absent: rales, respiratory distress, rhonchi, stridor, wheezes - Cardiovascular Cardiovascular exam: Present: RRR, +S1, +S2. Absent: clicks, diastolic murmur, gallop, systolic murmur - GI/Abdominal GI/Abdominal exam: Present: distended, normal bowel sounds, soft. Absent: hepatomegaly, tenderness - Extremities Exam Extremities exam: Present: full ROM, normal inspection, warm, radial pulses palpable and symmetrical. Absent: pedal edema, tenderness - Neurological Exam Neurological exam: Present: alert, oriented X3, no focal deficits, strengths equal and symetr throughout. Absent: facial droop, speech deficit - Skin Skin exam: Present: dry, intact, normal color, warm. Absent: rash, urticaria Internal Medicine: Result - Labs CBC & Chem 7: 01/30/17 02:22 01/31/17 15:00 Labs: BMP 01/31/17 15:00 Sodium 136 Potassium 4.6 H Chloride 104 Carbon Dioxide 29 BUN 12 Creatinine 0.73 Glucose 121 H Calcium 9.0 - ABG Interpretation ABG results: PT/INR, D-dimer PT 12.0 Seconds (9.4-12.1) 01/29/17 18:03 D-Dimer 514 ng/mLFEU (0-500) H 01/29/17 18:03 Consult Discharge Plan - Plan Referrals: Ector Wynne MD [Primary Care Provider] -
[2017-01-31] MEDS: Gabapentin 300 MG CAPSULE PO SCH (20:24)
[2017-02-01 08:48] VITALS: BP 177/97
[2017-02-01] MEDS: Aspirin Enteric Coated 81 MG Tablet PO SCH (08:51)
[2017-02-01] MEDS: diazePAM 10 MG TABLET PO SCH (08:51)
[2017-02-01] MEDS: Lithium Carbonate 300 MG CAPSULE PO SCH (08:51)
[2017-02-01] MEDS: Nicotine 21 MG PATCH.TD24 TD SCH (08:52)
[2017-02-01] MEDS: Metoprolol XL (24 HR) Succ 50 MG TAB.ER.24H PO SCH (08:58)
--- NOTE | 2017-02-01 09:46 | Discharge Summary ---
Date of Encounter: 02/01/17 Time of Encounter: 08:30 - Discharge Diagnosis (1) Atypical chest pain Priority: Primary Status: Acute Comments: Most likely chest wall pain. Pain increases with movement, inspiration, and palpation. States that it is some better today. Will go home on antiinflammatories and I have recommended topical analgesics, as well. Pt was placed on statin here, she states that she has had problems with edema when on a statin in the past. Pt has +1-2 non-pitting edema to jackie LE that she states started here. Pt states that she does not want to continue it at home and will continue her Fish Oil supplements at home. (2) Asthma Priority: Secondary Status: Chronic Comments: No acute exacerbation. Lungs are clear and diminished in post portillo, clear in anterior portillo. She states that her cough is some better, will send her home with rx for Mucinex. Continue home medications. Qualifiers: Asthma severity: mild intermittent Asthma complication type: uncomplicated Qualified Code(s): J45.20 - Mild intermittent asthma, uncomplicated (3) Tobacco abuse Priority: Secondary Status: Chronic Comments: Pt doing well with nicotine patches, will send her home with rx for same. (4) Hypertension Priority: Secondary Status: Chronic Comments: Pt has been hypertensive, all of her home medications were not continued on admission. Continue normal home medications on discharge. Qualifiers: Hypertension type: essential hypertension Qualified Code(s): I10 - Essential (primary) hypertension (5) DVT prophylaxis Priority: Secondary Status: Acute Comments: Pt has been ambulatory and XU nomane ordered. (6) Headache Priority: Secondary Status: Resolved Comments: PT reports chronic, intermittent migraines, however, states that she has never had a headache like she had yesterday. Denies ZAMUDIO now and states that is was resolved with medication. Most likely due to hypertension, as some of her home medications were not continued. Pt was sent for CT that showed no acute intracranial abnormality. She had no neurological deficits with headache and it has resolved. Qualifiers: Headache type: other headache syndrome Qualified Code(s): G44.89 - Other headache syndrome - Discharge Medications Prescriptions: Ibuprofen [Motrin] 600 mg PO Q6HR PRN #28 tab PRN Reason: Pain GuaiFENesin ER [Mucinex] 600 mg PO BID PRN #60 tab PRN Reason: Cough Nicotine Patch [Nicoderm] 21 mg TD DAILY #28 patch Home Medications: Albuterol Sulfate [Albuterol Inhaler] 2 puff IH Q4HR PRN 02/08/15 [History] Escitalopram [Lexapro] 20 mg PO QAM 02/08/15 [History] Esomeprazole Magnesium [Nexium] 40 mg PO DAILY 02/08/15 [History] Gabapentin [Neurontin] 300 - 600 mg PO HS 02/08/15 [History] Quetiapine Fumarate [Seroquel] 400 mg PO HS 02/08/15 [History] Tizanidine [Zanaflex] 4 mg PO QID PRN 02/08/15 [History] Acetaminophen/Butalbital/Caffe [Fioricet] 1 tab PO Q6HR PRN 09/06/16 [History] Buspirone HCl [Buspar] 10 mg PO BID 09/06/16 [History] [place] Carbonate 300 mg PO BID 09/06/16 [History] Losartan Potassium [Cozaar] 100 mg PO DAILY 09/06/16 [History] Metoprolol Succinate 100 mg PO DAILY 09/06/16 [History] diazePAM [Valium] 10 mg PO TID 09/06/16 [History] Aspirin Enteric Coated [Aspirin EC] 81 mg PO DAILY #30 tablet. 11/15/16 [Rx] Nitroglycerin [Nitrostat] 1 tab SL AD 12/05/16 [History] Isosorbide MONOnitrate (24 HR) [Imdur] 30 mg PO DAILY 01/29/17 [History] Potassium Chloride 20 meq PO BID 01/29/17 [History] Quetiapine Fumarate [Seroquel] 100 mg PO BID 01/29/17 [History] GuaiFENesin ER [Mucinex] 600 mg PO BID PRN #60 tab 02/01/17 [Rx] Ibuprofen [Motrin] 600 mg PO Q6HR PRN #28 tab 02/01/17 [Rx] Nicotine Patch [Nicoderm] 21 mg TD DAILY #28 patch 02/01/17 [Rx] Allergies/Adverse Reactions: acetaminophen [From [place]] Allergy (Verified 11/19/16 16:24) Rash aspirin [ASA] Allergy (Verified 11/19/16 16:24) Hives states she tolerates baby aspirin well; hives with full strength asa (11/15/16) . hydrocodone Allergy (Verified 11/19/16 16:24) Hives meperidine [From Demerol] Allergy (Verified 11/19/16 16:24) Hives lisinopril Adverse Reaction (Verified 11/19/16 16:24) Cough "Nuc Med Stress Test Contrast Dye" Allergy (Uncoded 01/30/17 02:25) Fainting Procedures/tests Complete & Pending: Procedures Performed prior 72 hours Category Date Time Status CT abd pelvis wo no iv no oral [CT] Routine Cat Scan 01/30/17 23:[address] head/brain wo con [CT] Stat Cat Scan 01/31/17 17:47 Completed Date of admission: 01/29/17 22:22 Primary care physician: Ector Wynne MD Consults: 01/30/17 01:56 Consult to PICC team [Consult to Invasive Line Access Team] [CONS] Routine Reason for Consult: Pt needs a good line for CTA Line Type: EPIV Discharging clinician: Suzanne Varma Anticipated date of discharge: 02/01/17 - Patient Status Disposition: Home, Self-Care Condition: Good Functional capacity at discharge: independent ambulation Overall status at discharge: patient is progressing back to baseline - Discharge Instructions Follow Up With: Ector Wynne MD [Primary Care Provider] - 02/08/17 3:45 pm Additional Instructions: Follow up with your PCP in the next 7-10 days for a follow up visit. Take your normal medications. Use your nicotine patches as directed. Take Motrin for pain every 6 hours and apply moist heat and try analgesic creams Return to the ER for any other problems or concerns or if your symptoms return or worsen. - Diet and Activity Activity: increase activity as tolerated Diet: advance to your usual diet Hospital course: Ms. Chahal is a 46 year old female with past medical history of bipolar disorder , arthritis, obesity, COPD, tobacco abuse, migraines, COPD, chronic pain, hypertrophic glycerides anemia, asthma. Your history reports fibromyalgia and angina. She reported to the emergency department on the night of admission as having lung pain in her left lung. She states that she woke up on day of admission having worsening pain. Pain increases with deep inspiration, movement , and palpation. She is unable to fully see a deep breath due to the pain, the space difficult for her to cough, as well. She reports productive cough with green sputum. Patient is a smoker and has been using nicotine patches since arrival. Patient reported some intermittent chest heaviness and discomfort she described as midsternal with radiation to his left jaw, but she has had none since before arrival to the emergency department. She denied nausea or vomiting , no abdominal pain and no peripheral edema no headache, blurred vision, dizziness, or shortness of breath with exertion. Patient had an elevated d-dimer in the emergency department. Troponins were negative. Chest x-ray was negative for any acute cardiopulmonary disease, mild cardiomegaly without failure. Due to poor venous access, a VQ scan was ordered that showed intermediate probability for pulmonary embolism. Chest CTA showed no evidence of pulmonary embolism or acute pulmonary abnormality. Patient also apparently reported abdominal pain at some point have an abdominal/pelvis CT without contrast that showed no acute findings. Patient was to be discharged yesterday and became hypertensive, and had what she described as a worse headache of her life. Her blood pressure responded well to hydralazine IV. She was medicated with Benadryl, Toradol, and Reglan IV for the headache. She received adequate relief and her headache resolved. A TTE was negative for acute infarct. There is a small calcified meningioma that was an incidental finding. Physical exam is unremarkable other than +1-2 nonpitting bilateral pedal edema. Patient states that she has had difficulty with edema when she was taking a statin before. She said that she had gained 8-10 pounds in a week when she was on a statin before. Said her primary care physician took her off it and she started fish oil. She has been on a statin here and attributes the swelling to that. She said she will continue fish oil supplements at home. She denies any anterior chest pain, reports that she is still having left posterior intercostal rib pain, although it has improved. Her lungs are clear and diminished, she denies any known injury, there is no obvious sign of injury or deformity. It is tender to palpation and pain does increase with movement, cough, deep inspiration. Patient is going to be sent home with Mucinex, Motrin , and nicotine patches for smoking cessation. Patient's vitals are stable today, labs are within normal limits. Patient is appropriate for discharge. Time spent discussing smoking cessation with patient: 3 to 10 minutes - Time Spent with Patient Total time spent providing and/or coordinating discharge services: Less than 30 minutes - Constitutional Vitals: Temp Pulse Resp BP Pulse Ox 97.5 F L 62 14 177/97 92 02/01/17 07:32 02/01/17 07:32 02/01/17 07:32 02/01/17 07:32 02/01/17 07:32 General appearance: Present: cooperative, A&O X 3, pleasant, no acute distress, answers questions appropriately - Head Head exam: Present: normal inspection - Eye Eye exam: Present: normal appearance, conjuntiva pink - ENT ENT exam: Present: mucous membranes moist, normal exam, normal external ear exam - Neck Neck exam general surgery: Present: normal inspection. Absent: lymphadenopathy , tenderness - Respiratory Respiratory exam: Present: chest wall tenderness, decreased breath sounds, CTAB. Absent: rales, respiratory distress, rhonchi, stridor, wheezes - Cardiovascular Cardiovascular exam: Present: RRR, +S1, +S2. Absent: clicks, diastolic murmur, gallop, systolic murmur - GI/Abdominal GI/Abdominal exam: Present: distended, normal bowel sounds, soft. Absent: hepatomegaly, tenderness - Extremities Exam Extremities exam: Present: full ROM, normal capillary refill, normal inspection , pedal edema, warm, radial pulses palpable and symmetrical. Absent: tenderness - Back Exam Back exam: Present: full ROM, normal inspection, tenderness - Neurological Exam Neurological exam: Present: alert, oriented X3, no focal deficits. Absent: facial droop, speech deficit - Skin Skin exam: Present: dry, intact, normal color, warm. Absent: rash, urticaria
== END 2017-02-01 10:50 | disposition home or self-care (01) ==
LOC: EMEROO 16:41 → 3BNU 16:41
PROVIDERS: ADMIT Internal Medicine; ATTEND Nurse Practitioner Family

== ENCOUNTER 2018-04-08 11:58 | Inpatient (IN) ==
--- NOTE | 2018-04-08 07:39 | Discharge Summary ---
Orders not resulted at time of discharge: Pending orders 04/08/18 07:38 XR knee LT 1-2V [XR] Routine H/H [Hemoglobin and Hematocrit] [HEME] Routine Date of Encounter: 04/11/18 Time of Encounter: 16:06 - Discharge Diagnosis (1) Status post revision of total replacement of left knee Priority: Primary Status: Acute Comments: Opsite dressing, leave intact until first post-operative visit. If dressing becomes >50% saturated, contact office, remove dressing and place appropriate dressing in its place. Do not allow for dressing to get wet. Zipline in place, plan to remove at post-operative day #14-16. Total Joint Precautions x 6 weeks Apply cold therapy wrap 3-6x/day for 20 minutes at a time. Encourage ambulation throughout the day Use Incentive spirometer 10x/hour. Elevate affected extremity above heart as tolerated. Brace: Wear T-scope x 6 weeks, no knee flexion. WBAT. (2) Loosening of knee joint prosthesis Priority: Primary Status: Acute Qualifiers: Encounter type: initial encounter Qualified Code(s): T84.038A - Mechanical loosening of other internal prosthetic joint, initial encounter; Z96.659 - Presence of unspecified artificial knee joint (3) Asthma Priority: Secondary Status: Chronic Qualifiers: Asthma severity: unspecified severity Asthma persistence: unspecified Asthma complication type: uncomplicated Qualified Code(s): J45.909 - Unspecified asthma, uncomplicated (4) Bipolar 1 disorder Priority: Secondary Status: Chronic (5) COPD (chronic obstructive pulmonary disease) Priority: Secondary Status: Chronic Qualifiers: COPD type: unspecified COPD Qualified Code(s): J44.9 - Chronic obstructive pulmonary disease, unspecified (6) Hypertension Priority: Secondary Status: Chronic Qualifiers: Hypertension type: essential hypertension Qualified Code(s): I10 - Essential (primary) hypertension (7) Obesity (BMI 30-39.9) Priority: Secondary Status: Chronic (8) Tobacco abuse Priority: Secondary Status: Chronic (9) Hyponatremia Priority: Secondary Status: Acute Comments: Asymptomatic -monitor at [facility]CF (10) Acute blood loss anemia Priority: Secondary Status: Chronic Comments: Asymtomatic - ECF will monitor - Hospital Course Hospital course: Ms. Chahal is a 47 year old female, status post Revision TKR 04/08 - with a history of ASA allergy - given Lovenox. Acute blood loss anemia - stable . Patient had uneventful postoperative course. Stable for discharge. Patient seen at bedside, without complaints. A&O x 3 Afebrile, vital signs stable. Vital Signs Temp Pulse Resp BP Pulse Ox 04/11/18 15:10 98.7 F 87 20 138/75 96 04/11/18 10:58 98.5 F 93 18 150/81 92 04/11/18 06:33 98.3 F 91 18 143/78 92 04/11/18 03:46 98.5 F 98 16 129/75 90 04/10/18 23:38 98.4 F 84 16 158/71 90 04/10/18 18:46 97.3 F L 100 16 152/75 92 04/10/18 16:13 98.3 F 98 17 143/73 91 Intake and Output 04/11/18 04/11/18 04/11/18 07:59 15:59 23:59 Intake Total 240 / 240 Balance 240 / 240 Intake: Oral 240 / 240 Other: Meal Breakfast Percent of Meal Consumed 90% # Voids 2 Weight 119.82 kg Patient Weight 04/11/18 23:59 Weight 119.82 kg Labs reviewed. H/H - stable, asymptomatic. Repeat Sodium Abnormal Labs 04/09/18 04/09/18 04/10/18 04:47 04:47 05:37 Hgb 10.9 L D 9.3 L D Hct 33.7 L 29.8 L Sodium 132 L Carbon Dioxide 19 L BUN 22 H BUN/Creatinine Ratio Glucose 361 H Calcium 8.4 L 04/10/18 04/11/18 05:37 13:37 Hgb 9.0 L Hct 28.8 L Sodium 131 L Carbon Dioxide BUN 31 H BUN/Creatinine Ratio 34 H Glucose 187 H Calcium 8.4 L Pain control: adequate Participating in PT. All questions and concerns addressed. Educated on use of incentive spirometer. Encouraged ambulation and proper hydration. Patient educated on post-operative restrictions and post-operative care. Assessment and plan: Continue with postoperative care Discharge plan: ECF , discharge today. - Time Spent with Patient Total time spent providing and/or coordinating discharge services: - Discharge Medications Prescriptions: diazePAM [Valium] 5 mg PO BID PRN 2 Days #4 tablet PRN Reason: Anxiety Home Medications: Esomeprazole Magnesium [Nexium] 40 mg PO DAILY 02/08/15 [History] Acetaminophen/Butalbital/Caffe [Fioricet] 1 tab PO Q6HR PRN 09/06/16 [History] Buspirone HCl [Buspar] 10 mg PO BID 09/06/16 [History] [place] Carbonate 300 mg PO BID 09/06/16 [History] Isosorbide MONOnitrate (24 HR) [Imdur] 30 mg PO DAILY 01/29/17 [History] Albuterol Sulfate [Albuterol Inhaler] 2 puff IH Q6HR PRN #1 hfa.aer.ad 02/28/17 [Rx] Enoxaparin [Lovenox] 30 mg SQ Q12HR 10 Days #20 syringe 04/08/18 [Rx] Escitalopram [Lexapro] 40 mg PO DAILY 04/08/18 [History] Gabapentin [Neurontin] 300 mg PO HS 04/08/18 [History] Losartan [Cozaar] 25 mg PO DAILY 04/08/18 [History] Meclizine HCl [Verticalm] 25 mg PO DAILY PRN 04/08/18 [History] Metoprolol Succinate [Toprol Xl] 100 mg PO HS 04/08/18 [History] Naltrexone HCl/Bupropion HCl [Contrave ER 8-90 mg Tablet] 2 tab PO BID 04/08/18 [History] OxyCODONE Immed Rel [Roxicodone 5 MG] 5 mg PO Q6HR PRN 7 Days #28 tablet 04/08/18 [Rx] Promethazine [Phenergan] 25 mg PO Q12H PRN 04/08/18 [History] Rizatriptan Benzoate [Maxalt] 10 mg PO DAILY PRN 04/08/18 [History] Tizanidine HCl 4 mg PO Q6H PRN 04/08/18 [History] diazePAM [Valium] 5 mg PO BID PRN 2 Days #4 tablet 04/11/18 [Rx] Allergies/Adverse Reactions: Allergy/AdvReac Type Severity Reaction Status Date / Time aspirin [ASA] Allergy Hives Verified 11/19/16 16:24 meperidine [From Demerol] Allergy Hives Verified 11/19/16 16:24 acetaminophen [From [place]] AdvReac Nausea Verified 04/08/18 14:25 hydrocodone AdvReac Nausea Verified 04/08/18 14:25 lisinopril AdvReac Cough Verified 11/19/16 16:24 "Nuc Med Stress Test Allergy Fainting Uncoded 01/30/17 02:25 Contrast Dye" Primary care physician: Ector Wynne MD - Patient Status Disposition: Transfer Inpatient Rehab Fac Condition: Good Functional capacity at discharge: uses cane/walker Overall status at discharge: patient is progressing back to baseline - Discharge Instructions Instructions: Total Knee Replacement (DC) Follow Up With: Ector Wynne MD [Primary Care Provider] - - Diet and Activity Activity: as per physical therapy
--- NOTE | 2018-04-08 12:13 | History & Physical Report ---
Date of Encounter: 04/08/18 Time of Encounter: 12:13 24 Hour HP Update - Instructions Instructions: If the History and Physical is less than 30 days old and was completed prior to A.M. admission and or procedure and has NOT been updated on calendar day of procedure please complete this update prior to performing procedure. - Update Patient reports changes in Medical Condition: No Changes in examination, assessment, or condition: No Changes in Medication: No Preop tests/diagnostics Reviewed: Yes Surgery Remains Indicated: Yes Consent for Planned Operative Procedure(s) Verified: Yes - Pre-Operative Checklist Preoperative Checklist Indicated: No Prophylactic Antibiotic Ordered: Yes Is VTE Prophylaxis Indicated?: Yes
[2018-04-08] MEDS ORDERED: CeFAZolin Syr 2,000MG/20 ML 2,000 MG/20 ML SYRINGE IVPB ONE (12:31)
[2018-04-08] MEDS ORDERED: Albuterol 2.5 MG/3 ML NEBULIZER IH ONE (12:31)
[2018-04-08] MEDS ORDERED: Ringers Solution, Lactated 1,000 ML IVC SCH ×2 (12:45→17:13)
[2018-04-08] MEDS ORDERED: Famotidine 20 MG/2 ML VIAL IVP ONE (12:56)
[2018-04-08] MEDS ORDERED: Celecoxib 100 MG CAPSULE PO ONE ×3 (12:56→13:17)
[2018-04-08] MEDS ORDERED: Pregabalin 75 MG CAPSULE PO ONE (12:57)
[2018-04-08] MEDS ORDERED: Acetaminophen IV 1,000 MG/100 ML INFUS..BTL IVPB ONE (12:57)
[2018-04-08] MEDS ORDERED: *HR* Propofol 200 MG/20 ML VIAL IVP ONE ×2 (13:04→14:06)
[2018-04-08] MEDS ORDERED: *HR* Midazolam HCl 2 MG/2 ML VIAL ONE (13:04)
[2018-04-08] MEDS ORDERED: *HR* FentaNYL (PF) 100 MCG/2 ML VIAL ONE ×3 (13:04→16:15)
[2018-04-08] MEDS ORDERED: *HR* FentaNYL (PF) 100 MCG/2 ML VIAL IVP PRN (13:07)
[2018-04-08] MEDS ORDERED: *HR* OxyCODONE Immed Rel 5 MG TABLET PO PRN (13:07)
[2018-04-08] MEDS ORDERED: *HR* Promethazine 25 MG/ML VIAL IVP PRN (13:07)
--- NOTE | 2018-04-08 13:21 | Anesthesia Evaluation PreOp ---
Date of Encounter: 04/08/18 Time of Encounter: 13:20 - Past History Planned Operation: Left TKA Cardiac History: HTN, Hyperlipidemia Pulmonary History: Smoker, COPD SCARFER History: Denies Any Significant HX Other Medical History: GERD, Other (Osteoarthritis Gerd Depression) Anesthesia History: No Prior Anesthetic Complications : No Alcohol Use: none Drug use: none Medications and Allergies Albuterol Sulfate [Albuterol Inhaler] 2 puff IH Q4HR PRN 02/08/15 [History] Escitalopram [Lexapro] 20 mg PO QAM 02/08/15 [History] Esomeprazole Magnesium [Nexium] 40 mg PO DAILY 02/08/15 [History] Gabapentin [Neurontin] 300 - 600 mg PO HS 02/08/15 [History] Quetiapine Fumarate [Seroquel] 400 mg PO HS 02/08/15 [History] Tizanidine [Zanaflex] 4 mg PO QID PRN 02/08/15 [History] Acetaminophen/Butalbital/Caffe [Fioricet] 1 tab PO Q6HR PRN 09/06/16 [History] Buspirone HCl [Buspar] 10 mg PO BID 09/06/16 [History] [place] Carbonate 300 mg PO BID 09/06/16 [History] Losartan Potassium [Cozaar] 100 mg PO DAILY 09/06/16 [History] Metoprolol Succinate 100 mg PO DAILY 09/06/16 [History] diazePAM [Valium] 10 mg PO TID 09/06/16 [History] Aspirin Enteric Coated [Aspirin EC] 81 mg PO DAILY #30 tablet. 11/15/16 [Rx] Nitroglycerin [Nitrostat] 1 tab SL AD 12/05/16 [History] Isosorbide MONOnitrate (24 HR) [Imdur] 30 mg PO DAILY 01/29/17 [History] Potassium Chloride 20 meq PO BID 01/29/17 [History] Quetiapine Fumarate [Seroquel] 100 mg PO BID 01/29/17 [History] Ibuprofen [Motrin] 600 mg PO Q6HR PRN #28 tab 02/01/17 [Rx] Albuterol Sulfate [Albuterol Inhaler] 2 puff IH Q6HR PRN #1 hfa.aer.ad 02/28/17 [Rx] Furosemide [Lasix] 20 mg PO DAILY 02/28/17 [History] predniSONE [PredniSONE] 20 mg PO DAILY #18 tablet 02/28/17 [Rx] Allergy/AdvReac Type Severity Reaction Status Date / Time acetaminophen [From [place]] Allergy Rash Verified 11/19/16 16:24 aspirin [ASA] Allergy Hives Verified 11/19/16 16:24 hydrocodone Allergy Hives Verified 11/19/16 16:24 meperidine [From Demerol] Allergy Hives Verified 11/19/16 16:24 lisinopril AdvReac Cough Verified 11/19/16 16:24 "Nuc Med Stress Test Allergy Fainting Uncoded 01/30/17 02:25 Contrast Dye" - Meds/Allergy Pre-op Review Medications Reviewed: Yes Allergies Reviewed: Yes Beta Blockers on Current Med List: Yes (Metoprolol last night 1730) Anesthesia Results - Labs Laboratory Tests 03/28/18 03/28/18 03/28/18 16:12 16:22 16:22 Hgb 13.0 Hct 40.0 Plt Count 257 PT 11.5 INR 1.0 APTT 35.3 Sodium 136 Potassium 4.0 BUN 16 Creatinine 0.73 - Imaging EKG: report reviewed (SR) Additional studies: ECHO EF 60%, no pulm htn Anesthesia Exam O2 Sat Height 1.8 m Height 1.8 m Height 1.8 m Weight 119.748 kg Weight 119.748 kg Weight 119.748 kg O2 Sat by Pulse Oximetry 96 O2 Sat by Pulse Oximetry 96 Vital Signs Temp Pulse Resp BP Pulse Ox 98.6 F 100 18 163/97 96 04/08/18 12:23 04/08/18 12:23 04/08/18 12:23 04/08/18 12:23 04/08/18 12:23 Height: 5'11 Weight: 264 lbs NPO (# of Hours): MN Pain Scale: 0 - HEENT Pupil (Motor): Pupils equal, EOMI Mallampati: III Teeth: Normal Oral Opening: Less than or equal to 3 - SCARFER LOC: Oriented SCARFER Motor: Normal RUE, Normal LUE, Normal RLE, Normal LLE, Normal Face SCARFER Sensory: Normal: RUE, LUE, RLE, LLE, Face - Cardiac Rhythm: Regular Murmur: None JVD: No Carotid Bruit: No - Pulmonary Breath Sounds: bilateral Clear Respiratory Effort: Symmetrical Anesthesia Assess/Plan ASA Score: 3 (COPD Tobacco Obese HTN) Modified Marquis Scale for Level of Consciousness: Cooperative, oriented, and tranquil Anesthetic Plan: General, Regional Monitoring Plan: Standard Monitors Recovery Plan: PACU (Discussed GA and RA, agrees to proceed)
[2018-04-08] MEDS ORDERED: Bupivacaine/Clonidine Syringe 1 EACH SYRINGE ONE (13:36)
[2018-04-08] MEDS ORDERED: ROPIVACAINE HCL/PF 0.5% 30 ML VIAL ONE (13:36)
[2018-04-08] MEDS ORDERED: *HR* Midazolam HCl 5 MG/5 ML VIAL IVP ONE (13:45)
[2018-04-08] MEDS ORDERED: Ethanol\\Acetic Acid\\Na Ace\\Ben 1,000 ML IRRIG.SOLN IR ONE (13:46)
[2018-04-08] MEDS ORDERED: *HR* Labetalol 20 MG/4 ML SYRINGE IVP ONE (14:02)
--- NOTE | 2018-04-08 14:11 | Anesthesia Procedures ---
Date of Encounter: 04/08/18 Time of Encounter: 14:09 Procedures: Anesthesia - Nerve Block Procedure Date: 04/08/18 Time: 14:09 Allergies/Adv Reactions: Allergies acetaminophen [From [place]] Allergy (Verified 11/19/16 16:24) Rash aspirin [ASA] Allergy (Verified 11/19/16 16:24) Hives states she tolerates baby aspirin well; hives with full strength asa (11/15/16). hydrocodone Allergy (Verified 11/19/16 16:24) Hives meperidine [From Demerol] Allergy (Verified 11/19/16 16:24) Hives lisinopril Adverse Reaction (Verified 11/19/16 16:24) Cough "Nuc Med Stress Test Contrast Dye" Allergy (Uncoded 01/30/17 02:25) Fainting Pre-op Diagnosis: left knee instability Surgical Procedure: left total knee arthroplasty Checklist: Correct Patient Identifier, Correct procedure, History checked Correct side: Left Blood Thinner: No Monitor Applied: BP, Pulse Oximetry Supplemental Oxygen via Nasal Cannula (L/min): 2 Sedation: Versed (mg): 7 Sedation: Fentanyl (mcg): 200 Indication: Post Op Analgesia Pre-op Neuro Deficits: No Block Type: Other (adductor canal, ipack) Catheter placed: No Sterile Technique: Yes Ultrasound used: Yes Anatomy identified: Yes Visual spread of Local: Yes Neuro Stimulation: No Blood on Needle Aspiration: No Smooth Injection of Local: Yes Pain with Injection of Local: No Prep: Chlorhexadine Needle: 21 x 100 mm Stimuplex Local: 0.25% Bupivicaine w/Clonidine 20 mcg/cc (ipack 20ml), Ropivacaine (0.5% 30ml with 8mg decadron) Volume (cc): 50 Number of Attempts: 1 Complications: None/effective block Vitals: Vital Signs/O2 Sat, Most Current Temp Pulse Resp BP Pulse Ox 98.6 F 96 18 144/93 97 04/08/18 12:23 04/08/18 14:08 04/08/18 13:05 04/08/18 14:08 04/08/18 14:08 Comments: Pt tolerated well. no complications
[2018-04-08] MEDS ORDERED: Dexamethasone 4 MG/ML VIAL ONE (15:09)
[2018-04-08] MEDS ORDERED: Ondansetron 4 MG/2 ML VIAL ONE (15:09)
--- NOTE | 2018-04-08 15:54 | Orthopedic Operative Note ---
Date of procedure: 04/08/18 Pre-op diagnosis: Aseptic loosening left total knee Post-op diagnosis: same Procedure: Procedure: Left revision robotic-assisted Total knee replacement Estimated blood loss: 500 cc Hardware: Metal and polyethylene replacement. Fei Femur: 3 Tibia:3, 12 x 50 stem, 5 mm augments medial and lateral. TS insert:22 Exam Under anesthesia: 2 degree flexion contracture 1 degree varus as calculated by the robot full flexion and no instability Procedural Notes: Patient noted to have loose tibial component. Components were removed without significant bone loss.The patient anterior slope of the tibia was corrected robotically. Operative procedure: The patient was brought to the operating room and placed on the operating room table. After general anesthesia was administered the operative knee was examined. Findings were noted in the exam under anesthesia. The operative extremity was prepped and draped in sterile surgical fashion. The patient received IV antibiotics prior to skin incision. A standard midline incision was made through the old incision, centered over the patella. The incision was made through the skin and subcutaneous tissue. A medial parapatellar tendon approach was performed. Care was taken to preserve tissue along the medial aspect of the patella. And to protect the patella tendon. Fluid was clear consistent with normal joint fluid and sent for Gram stain and culture. The deep MCL was released off the medial tibia. The infra patella fat pad was excised. An anterior medial incision was made over the proximal tibia distal to the tibial stem for the tibial array. Knee was brought into flexion. Steinmann pins were placed in the femur for the femoral array. The knee including the femur and the tibial registered. Osteophytes, ACL and PCL were excised at this point. Extension and flexion were assessed with a valgus stress components were adjusted on the computer to balance the knee. At this point in time femoral component was removed without significant bone loss as well as the tibial component which was loose. Femoral finishing cuts were made first with robotic assistance, these included the anterior cut posterior cuts chamfer cuts. Tibial cut was then performed with robotic assistance as well. Bone fragments were removed. The size 3 femoral guide was seated box cut was made. The size 3 tibial tray was seated and prepared with the fin cutter and reamed with a 12 x 50 stem. Trial reduction with the 22 TS [place] and 5 mm medial and lateral augments revealed extension of 2 degree hyper extension and 2 degree varus and full flexion. No varus valgus instability. Trial reduction revealed excellent patella tracking. All trial components were removed all bony surfaces were irrigated. The Tibia was seated followed by the femur, The selected [place] size was seated Patient had similar findings for motion and stability. The knee was closed by the PA. The knee was then irrigated out with 2 L of pulse irrigation. The extensor mechanism was closed with #2 FiberWire suture and #2 PDS suture. The subcutaneous tissue was then irrigated and closed deep with #1 PDS suture superficially with 0 PDS suture and skin was closed with zip tie The patient was then placed in a sterile dressing and a postoperative brace extubated and transferred to recovery room in stable condition. Anesthesia: GETA Surgeon: Maximiliano Galvan Was there an programs assistant present: No Estimated blood loss (cc): 500 Condition: stable Disposition: PACU
--- NOTE | 2018-04-08 17:01 | Anesthesia Evaluation Post Op ---
Date of Encounter: 04/08/18 Time of Encounter: 17:05 - Vital Signs Vital Signs: Vital Signs/O2 Sat/Glucose, Most Current Temp Pulse Resp BP Pulse Ox 04/08/18 16:55 97.9 F 90 20 123/77 97 04/08/18 16:45 90 20 115/92 96 04/08/18 16:35 90 20 130/78 93 04/08/18 16:25 97.6 F 100 20 130/84 92 04/08/18 14:18 93 139/91 97 04/08/18 14:08 96 144/93 97 04/08/18 14:00 129 157/93 97 04/08/18 13:45 104 165/99 95 04/08/18 13:05 18 96 - Lungs Lungs: Clear Ascult./Percussion - Airway Airway: Non-obstructed - Cardiovascular Regular Rate - Mental Status Mental Status: Alert & Oriented, Answers Appropriately - Pain Pain Scale: 1 - Nausea Vomiting Nausea Vomiting: Not Present - Hydration Hydration: Ice chips - Discharge PostOp Status: Transfer Patient to floor
[2018-04-08 17:06] LABS: Hematocrit 38.1 % (35.3-44.9); Hemoglobin 12.5 g/dL (11.5-15.4)
[2018-04-08] MEDS ORDERED: (Rizatriptan Benzoate [Maxalt] 10 MG) PO PRN (17:13)
[2018-04-08] MEDS ORDERED: Sennosides 8.6 MG TABLET PO PRN (17:13)
[2018-04-08] MEDS ORDERED: *HR* OxyCODONE/APAP 5/325 TABLET PO PRN (17:13)
[2018-04-08] MEDS ORDERED: Acetaminophen/Butalbital/CaffeineTABLET PO PRN (17:13)
[2018-04-08] MEDS ORDERED: MOM Conc 10 ML UD.LIQ PO PRN (17:13)
[2018-04-08] MEDS ORDERED: Naloxone 0.4 MG/ML INJ IVP PRN (17:13)
[2018-04-08] MEDS ORDERED: *HR* Enoxaparin 30 MG/0.3 ML SYRINGE SQ SCH (18:00)
[2018-04-08] MEDS ORDERED: Temazepam 15 MG CAPSULE PO PRN (21:00)
[2018-04-08] MEDS: Gabapentin 300 MG CAPSULE PO SCH (21:34)
[2018-04-08] MEDS: *HR* OxyCODONE Immed Rel 5 MG TABLET PO PRN (21:34)
[2018-04-08] MEDS: Lithium Carbonate 300 MG CAPSULE PO SCH (21:36)
[2018-04-08] MEDS: *HR* Enoxaparin 30 MG/0.3 ML SYRINGE SQ SCH (21:39)
[2018-04-08] MEDS: ceFAZolin 3,000 MG in 0.9 % Sodium Chloride 100 ML IVPB SCH (22:00)
[2018-04-08] MEDS: traMADol 50 MG TABLET PO PRN (23:42)
[2018-04-09] MEDS: diazePAM 5 MG TABLET PO PRN ×2 (00:33→11:00)
[2018-04-09] MEDS: *HR* OxyCODONE Immed Rel 5 MG TABLET PO PRN ×6 (01:33→23:27)
[2018-04-09] MEDS: tiZANidine 4 MG TABLET PO PRN (03:43)
[2018-04-09] MEDS ORDERED: Ketorolac 30 MG/ML VIAL IVP PRN (03:45)
[2018-04-09] MEDS ORDERED: *HR* HYDROmorphone (PF) 1 MG/ML SYRINGE IVP ONE ×2 (03:46→04:00)
[2018-04-09] MEDS ORDERED: *HR* HYDROmorphone (PF) 1 MG/ML SYRINGE IVP PRN (03:56)
[2018-04-09] MEDS ORDERED: Acetaminophen IV 1,000 MG/100 ML INFUS..BTL IVPB PRN (04:00)
[2018-04-09] MEDS: ceFAZolin 3,000 MG in 0.9 % Sodium Chloride 100 ML IVPB SCH (04:11)
[2018-04-09 05:23] LABS: Hematocrit 33.7 % (35.3-44.9)
[2018-04-09 05:24] LABS: Hemoglobin 10.9 g/dL (11.5-15.4)
[2018-04-09 05:42] LABS: BUN/Creatinine Ratio 23 (6-26); Blood Urea Nitrogen 22 mg/dL (6-20); Calcium 8.4 mg/dL (8.6-10.3); Carbon Dioxide 19 mEq/L (23-29); Chloride 100 mEq/L (98-107); Glucose 361 mg/dL (70-105); Osmolality,Calculated 292 (280-300); Potassium 4.8 mEq/L (3.5-5.1); Sodium 132 mEq/L (136-145); eGFR For Non-African Americans > 60 (> 60)
[2018-04-09] MEDS: *HR* Enoxaparin 30 MG/0.3 ML SYRINGE SQ SCH ×2 (05:54→17:16)
--- NOTE | 2018-04-09 06:30 | Orthopedics Progress Note ---
Date of Encounter: 04/09/18 Time of Encounter: 06:29 Subjective Interval history: Patient was seen this morning complains of left thigh pain, muscle tense compartments soft Afebrile vital signs stable. Operative extremity: Neurovascularly intact Dressing clean dry and intact Calves nontender Assessment and plan: Continue with postoperative care hematocrit 33 Objective Vital signs: Vital Signs Temp Pulse Resp BP Pulse Ox 04/09/18 04:52 97.9 F 93 16 149/82 95 04/08/18 23:54 98.5 F 100 16 151/91 94 04/08/18 20:01 98.1 F 78 16 132/76 98 04/08/18 19:01 98.4 F 98 18 138/76 100 04/08/18 18:07 97.8 F 94 20 128/80 100 04/08/18 17:34 97.5 F L 90 18 145/79 97 04/08/18 17:08 95.3 F L 90 18 142/90 96 04/08/18 16:55 97.9 F 90 20 123/77 97 04/08/18 16:45 90 20 115/92 96 04/08/18 16:35 90 20 130/78 93 04/08/18 16:25 97.6 F 100 20 130/84 92 04/08/18 14:18 93 139/91 97 04/08/18 14:08 96 144/93 97 04/08/18 14:00 129 157/93 97 04/08/18 13:45 104 165/99 95 04/08/18 13:05 18 96 04/08/18 12:23 98.6 F 100 18 163/97 96 Intake and Output 04/08/18 04/08/18 04/09/18 15:59 23:59 07:59 Intake Total 100 / 100 Output Total 500 / 500 Balance -400 / -400 Intake: IV Fluids 100 / 100 Ancef 3,000 MG In 0.9 % Sodium 100 / 100 Chloride 100 ML @ 200 mls/hr IVPB Q8H DEIDRE Rx#:[id number] Output: Estimated Blood Loss 500 / 500 Other: # Voids 1 1 Weight 119.748 kg - Labs CBC & BMP: 04/09/18 04:47 04/09/18 04:47 Labs: Abnormal lab results Hgb 10.9 g/dL (11.5-15.4) L D 10/23/18 04:47 Hct 33.7 % (35.3-44.9) L 04/09/18 04:47 Sodium 132 mEq/L (136-145) L 04/09/18 04:47 Carbon Dioxide 19 mEq/L (23-29) L 04/09/18 04:47 BUN 22 mg/dL (6-20) H 04/09/18 04:47 Glucose 361 mg/dL (70-105) H 04/09/18 04:47 Calcium 8.4 mg/dL (8.6-10.3) L 04/09/18 04:47 Consult Discharge Plan - Plan Referrals: Ector Wynne MD [Primary Care Provider] -
[2018-04-09] MEDS: Lithium Carbonate 300 MG CAPSULE PO SCH ×2 (08:58→20:05)
[2018-04-09] MEDS: Ondansetron 4 MG/2 ML VIAL IVP PRN ×2 (08:58→20:11)
[2018-04-09] MEDS: Isosorbide MONOnitrate (24 HR) 30 MG TAB.ER.24H PO SCH (08:59)
[2018-04-09] MEDS: Gabapentin 300 MG CAPSULE PO SCH (20:05)
[2018-04-09] MEDS: traMADol 50 MG TABLET PO PRN (22:31)
[2018-04-10] MEDS: Ondansetron 4 MG/2 ML VIAL IVP PRN (02:49)
[2018-04-10] MEDS: tiZANidine 4 MG TABLET PO PRN (02:50)
[2018-04-10] MEDS: *HR* Enoxaparin 30 MG/0.3 ML SYRINGE SQ SCH ×2 (05:58→17:58)
[2018-04-10 06:00] LABS: Hematocrit 29.8 % (35.3-44.9)
[2018-04-10 06:02] LABS: Hemoglobin 9.3 g/dL (11.5-15.4)
[2018-04-10 06:20] LABS: BUN/Creatinine Ratio 34 (6-26); Blood Urea Nitrogen 31 mg/dL (6-20); Calcium 8.4 mg/dL (8.6-10.3); Carbon Dioxide 24 mEq/L (23-29); Chloride 101 mEq/L (98-107); Glucose 187 mg/dL (70-105); Osmolality,Calculated 283 (280-300); Potassium 4.8 mEq/L (3.5-5.1); Sodium 131 mEq/L (136-145); eGFR For Non-African Americans > 60 (> 60)
[2018-04-10] MEDS: *HR* OxyCODONE Immed Rel 5 MG TABLET PO PRN ×4 (06:48→22:54)
--- NOTE | 2018-04-10 08:05 | Orthopedics Progress Note ---
Date of Encounter: 04/10/18 Time of Encounter: 08:05 Subjective Interval history: Patient was seen this morning complains of left thigh pain, muscle tense compartments soft Afebrile vital signs stable. Operative extremity: Neurovascularly intact Dressing clean dry and intact Calves nontender Assessment and plan: Continue with postoperative care Objective Vital signs: Vital Signs Temp Pulse Resp BP Pulse Ox 04/10/18 06:32 98.4 F 89 18 126/73 95 04/09/18 22:23 98.7 F 97 20 121/69 92 04/09/18 19:44 98.0 F 88 18 135/82 93 04/09/18 15:33 97.7 F 98 16 143/76 91 04/09/18 11:15 98.6 F 82 16 121/72 94 04/09/18 09:19 95 Intake and Output 04/09/18 04/10/18 04/10/18 23:59 07:59 15:59 Intake Total 500 / 500 900 / 900 Balance 500 / 500 900 / 900 Intake: IV Fluids 100 / 100 Ofirmev 1,000 mg/100 ml 1,000 100 / 100 mg In 100 ml @ 400 mls/hr IVPB Q6HR PRN Rx#:[id number] Oral 500 / 500 800 / 800 Other: # Voids 1 1 Weight 119.8 kg - Labs CBC & BMP: 04/10/18 05:37 04/10/18 05:37 Labs: Abnormal lab results Hgb 9.3 g/dL (11.5-15.4) L D 04/10/18 05:37 Hct 29.8 % (35.3-44.9) L 04/10/18 05:37 Sodium 131 mEq/L (136-145) L 04/10/18 05:37 BUN 31 mg/dL (6-20) H 04/10/18 05:37 BUN/Creatinine Ratio 34 (6-26) H 04/10/18 05:37 Glucose 187 mg/dL (70-105) H 04/10/18 05:37 Calcium 8.4 mg/dL (8.6-10.3) L 04/10/18 05:37 Consult Discharge Plan - Plan Referrals: Ector Wynne MD [Primary Care Provider] -
[2018-04-10] MEDS: Isosorbide MONOnitrate (24 HR) 30 MG TAB.ER.24H PO SCH (08:09)
[2018-04-10] MEDS: Lithium Carbonate 300 MG CAPSULE PO SCH ×2 (08:09→20:42)
[2018-04-10] MEDS: diazePAM 5 MG TABLET PO PRN (08:13)
[2018-04-10] MEDS: Gabapentin 300 MG CAPSULE PO SCH (20:42)
[2018-04-11] MEDS: *HR* OxyCODONE Immed Rel 5 MG TABLET PO PRN ×3 (03:09→15:53)
[2018-04-11] MEDS: *HR* Enoxaparin 30 MG/0.3 ML SYRINGE SQ SCH ×2 (06:28→17:02)
[2018-04-11] MEDS: Lithium Carbonate 300 MG CAPSULE PO SCH (08:50)
[2018-04-11] MEDS: Isosorbide MONOnitrate (24 HR) 30 MG TAB.ER.24H PO SCH (08:50)
--- NOTE | 2018-04-11 10:43 | Orthopedics Progress Note ---
Date of Encounter: 04/11/18 Time of Encounter: 08:06 Subjective Interval history: Patient was seen this morning we will begin gentle knee motion Afebrile vital signs stable. Operative extremity: Neurovascularly intact Dressing clean dry and intact Calves nontender Assessment and plan: Continue with postoperative care Objective Vital signs: Vital Signs Temp Pulse Resp BP Pulse Ox 04/11/18 06:33 98.3 F 91 18 143/78 92 04/11/18 03:46 98.5 F 98 16 129/75 90 04/10/18 23:38 98.4 F 84 16 158/71 90 04/10/18 18:46 97.3 F L 100 16 152/75 92 04/10/18 16:13 98.3 F 98 17 143/73 91 04/10/18 11:14 97.9 F 88 17 137/77 93 Intake and Output 04/10/18 04/11/18 04/11/18 23:59 07:59 15:59 Intake Total 240 / 240 Balance 240 / 240 Intake: Oral 240 / 240 Other: Meal Dinner Percent of Meal Consumed 70% Weight 119.82 kg Patient Weight 04/11/18 23:59 Weight 119.82 kg - Labs CBC & BMP: 04/10/18 05:37 04/10/18 05:37 Labs: Abnormal lab results Hgb 9.3 g/dL (11.5-15.4) L D 04/10/18 05:37 Hct 29.8 % (35.3-44.9) L 04/10/18 05:37 Sodium 131 mEq/L (136-145) L 04/10/18 05:37 BUN 31 mg/dL (6-20) H 04/10/18 05:37 BUN/Creatinine Ratio 34 (6-26) H 04/10/18 05:37 Glucose 187 mg/dL (70-105) H 04/10/18 05:37 Calcium 8.4 mg/dL (8.6-10.3) L 04/10/18 05:37 Consult Discharge Plan - Plan Referrals: Ector Wynne MD [Primary Care Provider] -
[2018-04-11 14:33] LABS: Hematocrit 28.8 % (35.3-44.9)
[2018-04-11 15:10] VITALS: BP 138/75
--- NOTE | 2018-04-11 16:04 | Physician Discharge Referral ---
ExtendedCare Referral Info Transfer To: [facility] Provider in Charge: Provider in Charge after Transfer: PCP Institutional Level of Care: Skilled - Diagnosis (1) Status post revision of total replacement of left knee Priority: Primary Status: Acute (2) Loosening of knee joint prosthesis Priority: Primary Status: Acute (3) Asthma Priority: Secondary Status: Chronic (4) Bipolar 1 disorder Priority: Secondary Status: Chronic (5) COPD (chronic obstructive pulmonary disease) Priority: Secondary Status: Chronic (6) Hypertension Priority: Secondary Status: Chronic (7) Obesity (BMI 30-39.9) Priority: Secondary Status: Chronic (8) Tobacco abuse Priority: Secondary Status: Chronic (9) Acute blood loss anemia Priority: Secondary Status: Chronic Expected Duration of Placement: < 30 days Prognosis: Good Aware of Diagnosis: Patient Aware of Prognosis: Patient - Transfer Medications Prescriptions: diazePAM [Valium] 5 mg PO BID PRN 2 Days #4 tablet PRN Reason: Anxiety Home Medications: Esomeprazole Magnesium [Nexium] 40 mg PO DAILY 02/08/15 [History] Acetaminophen/Butalbital/Caffe [Fioricet] 1 tab PO Q6HR PRN 09/06/16 [History] Buspirone HCl [Buspar] 10 mg PO BID 09/06/16 [History] [place] Carbonate 300 mg PO BID 09/06/16 [History] Isosorbide MONOnitrate (24 HR) [Imdur] 30 mg PO DAILY 01/29/17 [History] Albuterol Sulfate [Albuterol Inhaler] 2 puff IH Q6HR PRN #1 hfa.aer.ad 02/28/17 [Rx] Enoxaparin [Lovenox] 30 mg SQ Q12HR 10 Days #20 syringe 04/08/18 [Rx] Escitalopram [Lexapro] 40 mg PO DAILY 04/08/18 [History] Gabapentin [Neurontin] 300 mg PO HS 04/08/18 [History] Losartan [Cozaar] 25 mg PO DAILY 04/08/18 [History] Meclizine HCl [Verticalm] 25 mg PO DAILY PRN 04/08/18 [History] Metoprolol Succinate [Toprol Xl] 100 mg PO HS 04/08/18 [History] Naltrexone HCl/Bupropion HCl [Contrave ER 8-90 mg Tablet] 2 tab PO BID 04/08/18 [History] OxyCODONE Immed Rel [Roxicodone 5 MG] 5 mg PO Q6HR PRN 7 Days #28 tablet 04/08/18 [Rx] Promethazine [Phenergan] 25 mg PO Q12H PRN 04/08/18 [History] Rizatriptan Benzoate [Maxalt] 10 mg PO DAILY PRN 04/08/18 [History] Tizanidine HCl 4 mg PO Q6H PRN 04/08/18 [History] diazePAM [Valium] 5 mg PO BID PRN 2 Days #4 tablet 04/11/18 [Rx] Allergies/Adverse Reactions: Allergy/AdvReac Type Severity Reaction Status Date / Time aspirin [ASA] Allergy Hives Verified 11/19/16 16:24 meperidine [From [place]] Allergy Hives Verified 11/19/16 16:24 acetaminophen [From [place]] AdvReac Nausea Verified 04/08/18 14:25 hydrocodone AdvReac Nausea Verified 04/08/18 14:25 lisinopril AdvReac Cough Verified 11/19/16 16:24 "Nuc Med Stress Test Allergy Fainting Uncoded 01/30/17 02:25 Contrast Dye" - Respiratory Orders None Smoking Cessation: Smoking cessation has been advised. For more information, call the [place] Tobacco Quit Line at 5-640-OZCENOW. - Lab Orders Lab Orders: CBC - Advance Directives Code Status: Full Code - Mobility Orders Ambulate - Rehabiliation Orders Rehab Potential: Good Rehab Orders: Sternal Precautions, ROM Exercises, Evaluation for Physical Therapy, Evaluation for Occupational Therapy - Treatments Skin tear care topically daily PRN per policy, May check for fecal impaction rectally daily PRN, Fleet enema rectally every other day PRN cleansing purposes List/Other: Opsite dressing, leave intact until first post-operative visit. If dressing becomes >50% saturated, contact office, remove dressing and place appropriate dressing in its place. Do not allow for dressing to get wet. Zipline/ruel in place, plan to remove at post-operative day #14-16. Total Joint Precautions x 6 weeks Apply cold therapy wrap 3-6x/day for 20 minutes at a time. Encourage ambulation throughout the day Use Incentive spirometer 10x/hour. Elevate affected extremity above heart as tolerated. Brace: Wear T-scope x 6 weeks, no knee flexion. WBAT. - Diet Orders Regular CERTIFICATION: I certify that the transfer of the above named patient to an Extended Care Facility is necessary for the continuing treatment of the diagnosis listed. The above information is true and accurate reflection of patient's current condition. Confidential - Redisclosure prohibited without a patient's written consent.
[2018-04-11 16:43] LABS: BUN/Creatinine Ratio 22 (6-26); Blood Urea Nitrogen 14 mg/dL (6-20); Calcium 8.8 mg/dL (8.6-10.3); Carbon Dioxide 25 mEq/L (23-29); Chloride 97 mEq/L (98-107); Glucose 178 mg/dL (70-105); Osmolality,Calculated 283 (280-300); Potassium 4.2 mEq/L (3.5-5.1); Sodium 134 mEq/L (136-145); eGFR For Non-African Americans > 60 (> 60)
--- NOTE | 2018-04-11 17:56 | Event Note ---
Date of Encounter: 04/09/18 Time of Encounter: 13:00 Patient was seed POD#1 - Doing well; pain difficulty but controlled with medication. No knee ROM. TROM in place.
== END 2018-04-11 17:57 | DRG 467 ==
LOC: SAMDAY 11:58 → 3NENU 17:06
PROVIDERS: ADMIT Orthopaedic Surgery; ATTEND Orthopaedic Surgery

== ENCOUNTER 2018-04-25 19:33 | Observation (INO) ==
[2018-04-25] MEDS ORDERED: Ipratropium/Albuterol Neb 3 ML IH STA (22:05)
[2018-04-25] MEDS ORDERED: predniSONE 20 MG TABLET PO STA (22:05)
[2018-04-25] MEDS ORDERED: *HR* OxyCODONE Immed Rel 5 MG TABLET PO STA (22:06)
[2018-04-25 22:10] LABS: Basophils # 0.1 K/mcL (0.0-0.2); Basophils % 0.7 %; Eosinophils # 0.4 K/mcL (0.0-0.6); Eosinophils % 3.2 %; Hematocrit 27.9 % (35.3-44.9); Hemoglobin 8.7 g/dL (11.5-15.4); Lymphocytes # 2.2 K/mcL (0.6-4.6); Lymphocytes % 19.5 %; Mean Corpuscular HGB Conc 31.2 g/dL (31.6-35.5); Mean Corpuscular Hemoglobin 28.7 pg (28.0-33.3); Mean Corpuscular Volume 92.1 fL (83.0-100.0); Mean Platelet Volume 9.2 fL (9.4-12.4); Monocytes # 0.6 K/mcL (0.0-1.3); Monocytes % 5.4 %; Neutrophils # 7.9 K/mcL (1.6-8.9); Platelet Count 328 K/mcL (140-400); Red Blood Count 3.03 M/mcL (3.82-4.97); Red Cell Distribution Width 16.3 % (11.5-14.5); Segmented Neutrophils % 70.2 %
[2018-04-25 22:31] LABS: BUN/Creatinine Ratio 21 (6-26); Blood Urea Nitrogen 15 mg/dL (6-20); Calcium 8.6 mg/dL (8.6-10.3); Carbon Dioxide 26 mEq/L (23-29); Chloride 102 mEq/L (98-107); Glucose 145 mg/dL (70-105); Osmolality,Calculated 283 (280-300); Potassium 3.6 mEq/L (3.5-5.1); Sodium 135 mEq/L (136-145); Troponin I < 0.03 ng/mL (< 0.04); eGFR For Non-African Americans > 60 (> 60)
--- NOTE | 2018-04-25 23:23 | Emergency Department Note ---
Disposition Clinical Impression: COPD exacerbation, Restrictive lung disease Cellulitis Qualifiers: Site of cellulitis: extremity Site of cellulitis of extremity: lower extremity Laterality: left Qualified Code(s): L03.116 - Cellulitis of left lower limb Disposition: Admitted As Inpatient Condition: Good Referrals: Ector Wynne MD [Primary Care Provider] - General Adult HPI - General Chief complaint: ED Shortness of Breath/Dyspnea Stated complaint: sob, pain in left leg. Time Seen by Provider: 04/25/18 21:45 Source: patient Mode of arrival: ambulatory Limitations: no limitations Nursing Notes Reviewed: Yes Vital Signs Reviewed: Yes - History of Present Illness HPI Narrative: Patient with significant past medical history including COPD as well as re strictive lung disease. Patient had left leg knee surgery. She has been seen by the orthopedic surgeon and they had concern for the increased bilateral leg swelling as well as associated redness. They gave her prescription for Bactrim and wanted her to get it DVT study and further evaluation of her shortness of breath. DVT study of the left leg was reportedly negative. Patient shortness of breath started today and is described as bandlike pattern around her chest. Worse with walking. No previous history of heart disease. She does have anterior and posterior upper lung wheezing with concern for decreased breath sounds at the bases. Given her history of COPD she will be treated for COPD exacerbation. Blood work and chest x-ray are pending. Patient will undergo reevaluation Pain Scale: 3 - Related Data Home Medications Medication Instructions Recorded Confirmed Esomeprazole Magnesium [Nexium] 40 mg PO DAILY 02/08/15 04/08/18 Acetaminophen/Butalbital/Caffe 1 tab PO Q6HR PRN 09/06/16 04/08/18 [Fioricet] Buspirone HCl [Buspar] 10 mg PO BID 09/06/16 04/08/18 [place] Carbonate 300 mg PO BID 09/06/16 04/08/18 Isosorbide MONOnitrate (24 HR) 30 mg PO DAILY 01/29/17 04/08/18 [Imdur] Escitalopram [Lexapro] 40 mg PO DAILY 04/08/18 04/08/18 Gabapentin [Neurontin] 300 mg PO HS 04/08/18 04/08/18 Losartan [Cozaar] 25 mg PO DAILY 04/08/18 04/08/18 Meclizine HCl [Verticalm] 25 mg PO DAILY PRN 04/08/18 04/08/18 Metoprolol Succinate [Toprol Xl] 100 mg PO HS 04/08/18 04/08/18 Naltrexone HCl/Bupropion HCl 2 tab PO BID 04/08/18 04/08/18 [Contrave ER 8-90 mg Tablet] Promethazine [Phenergan] 25 mg PO Q12H PRN 04/08/18 04/08/18 Rizatriptan Benzoate [Maxalt] 10 mg PO DAILY PRN 04/08/18 04/08/18 Tizanidine HCl 4 mg PO Q6H PRN 04/08/18 04/08/18 Previous Rx's Medication Instructions Recorded Albuterol Sulfate [Albuterol 2 puff IH Q6HR PRN #1 hfa.aer.ad 02/28/17 Inhaler] Allergies Allergy/AdvReac Type Severity Reaction Status Date / Time aspirin [ASA] Allergy Hives Verified 11/19/16 16:24 meperidine [From Demerol] Allergy Hives Verified 11/19/16 16:24 acetaminophen [From [place]] AdvReac Nausea Verified 04/08/18 14:25 hydrocodone AdvReac Nausea Verified 04/08/18 14:25 lisinopril AdvReac Cough Verified 11/19/16 16:24 "Nuc Med Stress Test Allergy Fainting Uncoded 01/30/17 02:25 Contrast Dye" Review of Systems: CONSTITUTIONAL: No weight loss, fever, chills, weakness or fatigue. HEENT: Eyes: No visual changes. Ears, Nose, Throat: No hearing loss, difficulty talking or unable to swallow. SKIN: Erythema left leg CARDIOVASCULAR: Bandlike chest pain worse with exertion with associated bilateral edema to the lower extremities. RESPIRATORY: Shortness of breath without cough or sputum production. GASTROINTESTINAL: No anorexia, nausea, vomiting or diarrhea. No abdominal pain or blood. GENITOURINARY: No burning on urination or hematuria. NEUROLOGICAL: No headache, dizziness, syncope, paralysis, ataxia, numbness or tingling in the extremities. No change in bowel or bladder control. MUSCULOSKELETAL: Left leg pain. 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 Cardiac: Regular rate and rhythm Abdomen: soft, nontender, nondistended; no guarding, rebound, or tenderness to percussion Musculoskeletal: Bilateral pitting edema Skin: Erythema to the left lower extremity worse from the knee down. Neuro: Alert and Oriented to person, place, and time; No focal deficit Course - Reevaluation(s) Reevaluation #1: Patient had some improvement with breathing treatments and steroids but not resolution. She got up to use the bathroom and became short of breath with worsening bandlike chest tightness on exertion. Chest x-ray concern for vascular congestion. Patient with no history of CHF. Patient will be admitted for further evaluation and management Vital Signs Temperature 97.4 F L 04/25/18 19:53 Pulse Rate 68 04/25/18 19:53 Respiratory Rate 18 04/25/18 19:53 Blood Pressure 97/60 04/25/18 19:53 O2 Sat by Pulse Oximetry 100 04/25/18 19:53 Temperature 97.4 F L 04/25/18 19:53 Pulse Rate 68 04/25/18 19:53 Respiratory Rate 17 04/25/18 22:15 Blood Pressure 97/60 04/25/18 19:53 O2 Sat by Pulse Oximetry 99 04/25/18 22:15 Oxygen Delivery Oxygen Delivery Nasal Cannula Medical Decision Making - Lab Data Result diagrams: 04/25/18 21:58 04/25/18 21:58 Lab Results 04/25/18 04/25/18 04/25/18 Range/Units 21:58 21:58 21:58 WBC 11.3 H (4.3-11.1) K/mcL RBC 3.03 L (3.82-4.97) M/mcL Hgb 8.7 L (11.5-15.4) g/dL Hct 27.9 L (35.3-44.9) % MCV 92.1 (83.0-100.0) fL MCH 28.7 (28.0-33.3) pg MCHC 31.2 L (31.6-35.5) g/dL RDW 16.3 H (11.5-14.5) % Plt Count 328 (140-400) K/mcL MPV 9.2 L (9.4-12.4) fL Immature Gran % 1.0 (0-4) % Seg Neutrophils % 70.2 % Lymphocytes % 19.5 % Monocytes % 5.4 % Eosinophils % 3.2 % Basophils % 0.7 % Neutrophils # 7.9 (1.6-8.9) K/mcL Lymphocytes # 2.2 (0.6-4.6) K/mcL Monocytes # 0.6 (0.0-1.3) K/mcL Eosinophils # 0.4 (0.0-0.6) K/mcL Basophils # 0.1 (0.0-0.2) K/mcL Sodium 135 L (136-145) mEq/L Potassium 3.6 (3.5-5.1) mEq/L Chloride 102 (98-107) mEq/L Carbon Dioxide 26 (23-29) mEq/L BUN 15 (6-20) mg/dL Creatinine 0.72 (0.60-1.20) mg/dL Est GFR ( Amer) > 60 (> 60) Est GFR (Non-Af Amer) > 60 (> 60) BUN/Creatinine Ratio 21 (6-26) Glucose 145 H (70-105) mg/dL Calculated Osmolality 283 (280-300) Lactic Acid 1.9 (0.5-2.2) mmol/L Calcium 8.6 (8.6-10.3) mg/dL Troponin I < 0.03 (< 0.04) ng/mL B-Natriuretic Peptide (Less than 100) pg/mL 04/25/18 Range/Units 21:58 WBC (4.3-11.1) K/mcL RBC (3.82-4.97) M/mcL Hgb (11.5-15.4) g/dL Hct (35.3-44.9) % MCV (83.0-100.0) fL MCH (28.0-33.3) pg MCHC (31.6-35.5) g/dL RDW (11.5-14.5) % Plt Count (140-400) K/mcL MPV (9.4-12.4) fL Immature Gran % (0-4) % Seg Neutrophils % % Lymphocytes % % Monocytes % % Eosinophils % % Basophils % % Neutrophils # (1.6-8.9) K/mcL Lymphocytes # (0.6-4.6) K/mcL Monocytes # (0.0-1.3) K/mcL Eosinophils # (0.0-0.6) K/mcL Basophils # (0.0-0.2) K/mcL Sodium (136-145) mEq/L Potassium (3.5-5.1) mEq/L Chloride (98-107) mEq/L Carbon Dioxide (23-29) mEq/L BUN (6-20) mg/dL Creatinine (0.60-1.20) mg/dL Est GFR ( Amer) (> 60) Est GFR (Non-Af Amer) (> 60) BUN/Creatinine Ratio (6-26) Glucose (70-105) mg/dL Calculated Osmolality (280-300) Lactic Acid (0.5-2.2) mmol/L Calcium (8.6-10.3) mg/dL Troponin I (< 0.04) ng/mL B-Natriuretic Peptide 63 (Less than 100) pg/mL
[2018-04-25] MEDS ORDERED: Sulfamethoxazole/Trimeth DS 1 EACH TABLET PO ONE (23:28)
[2018-04-25] MEDS ORDERED: Furosemide 40 MG/4 ML VIAL IVP ONE (23:29)
[2018-04-26] MEDS ORDERED: Naloxone 0.4 MG/ML INJ IVP PRN ×2 (02:56→03:59)
--- NOTE | 2018-04-26 03:05 | Internal Med History&Physical ---
Date of Encounter: 04/26/18 Time of Encounter: 03:03 Internal Medicine - H&P: HPI Chief complaint: SOB History of present illness: Ms. Chahal is a 47 year old female past medical history of COPD and asthma and and recent left revision total knee replacement on 04/08 who was referred to the ED by orthopedics and due to shortness of breath which started today. Patient was seen by her orthopedic AP earlier today due to concern for increasing bilateral lower extremity swelling. She was given a prescription of Bactrim and I was asked to come in for a DVT study for further evaluation of her shortness of breath. DVT study was reportedly negative but due to her shortness of breath she experienced during assessment she was subsequently referred to the ED for further evaluation. Patient reports having pleuritic chest pain associated with these episodes of shortness of breath. She was noted to have wheezing on initial assessment in the ED and was subsequently given breathing treatments with some improvement. Patient has no prior history of CHF. Chest x-ray was performed which showed mild pulmonary vascular congestion in the setting of a normal BNP and negative troponins. EKG was unremarkable. Admitted for possible asthma versus COPD exacerbation. Past Med Surg Social Fam HX - Past Medical History Medical history: arthritis, asthma, COPD, fibromyalgia, GERD, hyperlipidemia, hypertension, migraine, osteoporosis, TIA Additional medical history: left knee instability. htn. tobacco dependency. copd Psychiatric history: anxiety, bipolar, depression - Past Surgical History Surgical History: , orthopedic, other, sinus surgery, other Additional surgical history: Left knee replacement 04/08/18 - Social History Smoking Status: Current every day smoker Packs per day: <1/2 Smokeless Tobacco Status: No Alcohol use: none Drug use: none - Family History Brother Adopted: No Age: 33 Family Member Ethnicity: Non- Living Status: Age at : 33 Cause of : Drug overdose Father Adopted: No Age: 73 Family Member Ethnicity: Non- Living Status: Still Living Hx Family Cardiac Disorders: Yes (CHF, A-FIB) Hx Family Respiratory Disorders: Yes (COPD) Hx Family Cancer: Yes (Lung cancer) Hx Family Endocrine Disorder: Yes (DM) Mother Family Member Ethnicity: Non- Living Status: Still Living Hx Family Cardiac Disorders: Yes Hx Family Respiratory Disorders: Yes Hx Family Endocrine Disorder: Yes (DM) Internal Medicine - H&P: Meds Esomeprazole Magnesium [Nexium] 40 mg PO DAILY 02/08/15 [History] Acetaminophen/Butalbital/Caffe [Fioricet] 1 tab PO Q6HR PRN 09/06/16 [History] Buspirone HCl [Buspar] 10 mg PO BID 09/06/16 [History] [place] Carbonate 300 mg PO BID 09/06/16 [History] Isosorbide MONOnitrate (24 HR) [Imdur] 30 mg PO DAILY 01/29/17 [History] Albuterol Sulfate [Albuterol Inhaler] 2 puff IH Q6HR PRN #1 hfa.aer.ad 02/28/17 [Rx] Escitalopram [Lexapro] 40 mg PO DAILY 04/08/18 [History] Gabapentin [Neurontin] 300 mg PO HS 04/08/18 [History] Losartan [Cozaar] 25 mg PO DAILY 04/08/18 [History] Meclizine HCl [Verticalm] 25 mg PO DAILY PRN 04/08/18 [History] Metoprolol Succinate [Toprol Xl] 100 mg PO HS 04/08/18 [History] Naltrexone HCl/Bupropion HCl [Contrave ER 8-90 mg Tablet] 2 tab PO BID 04/08/18 [History] Promethazine [Phenergan] 25 mg PO Q12H PRN 04/08/18 [History] Rizatriptan Benzoate [Maxalt] 10 mg PO DAILY PRN 04/08/18 [History] Tizanidine HCl 4 mg PO Q6H PRN 04/08/18 [History] Quetiapine Fumarate [Seroquel] 200 mg PO DAILY 04/26/18 [History] diazePAM [Valium] 5 mg PO BID 04/26/18 [History] Allergy/AdvReac Type Severity Reaction Status Date / Time aspirin [ASA] Allergy Hives Verified 11/19/16 16:24 meperidine [From Demerol] Allergy Hives Verified 11/19/16 16:24 acetaminophen [From [place]] AdvReac Nausea Verified 04/08/18 14:25 hydrocodone AdvReac Nausea Verified 04/08/18 14:25 lisinopril AdvReac Cough Verified 11/19/16 16:24 "Nuc Med Stress Test Allergy Fainting Uncoded 01/30/17 02:25 Contrast Dye" All Systems PM: A 10-system review of systems was performed and is negative for pertinent findings except as documented above in the HPI. - Constitutional Constitutional: no chills, no fever(s), no night sweats - EENT Eyes: no change in vision, no discharge, no pain, no photophobia Ears: no ear discharge, no ear pain, no tinnitus Nose, mouth and throat: no dysphagia, no nasal discharge, no neck pain, no sore throat - Cardiovascular Cardiovascular ROS IM: no chest pain, no diaphoresis, no dyspnea, no lightheadedness, no palpitations, no syncope - Respiratory Respiratory: no cough, no dyspnea, no wheezing, no excessive phlegm production - Gastrointestinal Gastrointestinal: no abdominal pain, no diarrhea, no hematemesis, no hematochezia, no melena, no nausea, no vomiting - Genitourinary Genitourinary: no change in urinary stream, no dysuria, no flank pain, no hematuria - Musculoskeletal Musculoskeletal ROS IM: no numbness, no tingling - Integumentary Integumentary IM: no rash, no unusual bruising - Neurological Neurological ROS: no confusion, no convulsions, no focal weakness, no numbness, no tingling, no tremor(s) - Hematologic/Lymphatic Hematologic/Lymphatic: no easy bruising - Constitutional Vitals: Temp Pulse Resp BP Pulse Ox 97.4 F L 85 19 125/76 99 04/25/18 21:55 04/26/18 01:49 04/26/18 01:49 04/26/18 01:49 04/26/18 01:49 Exam: General: Alert and oriented Skin:Normal color, no rash, no lesions. HEENT:EOM, pupils equal, round and reactive. Cardiovascular:Normal S1 & S2, no rubs, murmurs or gallops. No JVD. Pulse regular. Lungs:Normal breath sounds, no wheezes or crackles. Abdomen:Soft, non-tender, no rigidity. Extremities:No deformity, no edema or tenderness, no joint swelling or clubbing. Neurological:Normal cognition and motor skills. Pulses:Carotid and radial pulses normal +2. Rest of the physical exam is non contributory Internal Med - H&P Results - Labs CBC & Chem 7: 04/26/18 04:00 04/26/18 04:00 Labs: Short CBC 04/25/18 Range/Units 21:58 WBC 11.3 H (4.3-11.1) K/mcL Hgb 8.7 L (11.5-15.4) g/dL Hct 27.9 L (35.3-44.9) % Plt Count 328 (140-400) K/mcL Neutrophils # 7.9 (1.6-8.9) K/mcL BMP 04/25/18 21:58 Sodium 135 L Potassium 3.6 Chloride 102 Carbon Dioxide 26 BUN 15 Creatinine 0.72 Glucose 145 H Calcium 8.6 Cardiac Enzymes 04/25/18 Range/Units 21:58 Troponin I < 0.03 (< 0.04) ng/mL - Impressions ITS Impressions Chest X-Ray 04/25/18 21:14 IMPRESSION: Findings are suggestive of developing pulmonary edema. D/ / Adrián Skaggs MD / Adrián Skaggs MD Interpreting Provider: Adrián Skaggs MD - Assessment and plan (1) Atypical chest pain Current Visit: No Status: Acute Assessment and plan: Atypical chest pain that is pleuritic in nature in the setting of shortness of breath and recent left knee surgery. Negative troponins and normal EKG on initial assessment. Concern for PE. A d-dimer was subsequently performed after the patient admitted found to be elevated however findings may be confounded by recent surgery. We will obtain a CT angiogram to rule out PE. (2) Shortness of breath Current Visit: Yes Status: Acute Assessment and plan: Shortness of breath. Possible asthma versus COPD exacerbation. However given patient's recent surgery and pleuritic chest pain, we will obtain d-dimer and subsequent CT angiogram if elevated. (3) Edema of left lower extremity Current Visit: Yes Status: Acute Assessment and plan: Patient has left lower extremity edema with warmth status post left total knee replacement in March. No reports of fever. No elevated white blood cell count. Per report, DVT workup was negative. Mild edema of the right lower extremity was also noted. Patient was started on Bactrim as outpatient. Will obtain echocardiogram to assess cardiac function. Consider resuming antibiotics. (4) COPD exacerbation Current Visit: Yes Status: Acute Assessment and plan: Possible asthma versus COPD exacerbation. Patient received nebulizer treatments in the ED with some improvement. We will rule out PE. We will start patient on duo nebs and steroids. (5) Asthma Current Visit: No Status: Chronic Assessment and plan: See "COPD exacerbation "above Qualifiers: Asthma severity: unspecified severity Asthma persistence: unspecified Asthma complication type: uncomplicated Qualified Code(s): J45.909 - Unspecified asthma, uncomplicated - Time Spent With Patient Total time spent is greater than 50% in coordination of care (as documented) at patient's floor/unit and/or counseling patient:
[2018-04-26] MEDS ORDERED: Acetaminophen 325 MG TABLET PO PRN (03:59)
[2018-04-26] MEDS ORDERED: traMADol 50 MG TABLET PO PRN (03:59)
[2018-04-26] MEDS ORDERED: (Rizatriptan Benzoate [Maxalt] 10 MG) PO PRN (04:00)
[2018-04-26] MEDS ORDERED: Acetaminophen/Butalbital/CaffeineTABLET PO PRN (04:00)
[2018-04-26] MEDS: Ipratropium/Albuterol Neb 3 ML IH SCH ×2 (04:44→11:05)
[2018-04-26] MEDS: *HR* OxyCODONE Immed Rel 5 MG TABLET PO PRN ×3 (05:07→23:58)
[2018-04-26] MEDS: MethylPREDNISolone 40 MG/ML VIAL IVP SCH ×4 (05:07→23:58)
[2018-04-26] MEDS: *HR* Heparin 5,000 UNIT/ML VIAL SQ SCH ×3 (05:08→21:15)
[2018-04-26 05:12] LABS: Basophils # 0.1 K/mcL (0.0-0.2); Basophils % 0.5 %; Eosinophils % 0.1 %; Hematocrit 30.4 % (35.3-44.9); Hemoglobin 9.7 g/dL (11.5-15.4); Immature Granulocytes % 1.4 % (0-4); Lymphocytes # 0.7 K/mcL (0.6-4.6); Lymphocytes % 6.4 %; Mean Corpuscular HGB Conc 31.9 g/dL (31.6-35.5); Mean Platelet Volume 9.3 fL (9.4-12.4); Monocytes # 0.1 K/mcL (0.0-1.3); Monocytes % 1.4 %; Neutrophils # 9.1 K/mcL (1.6-8.9); Platelet Count 354 K/mcL (140-400); Red Blood Count 3.34 M/mcL (3.82-4.97); Red Cell Distribution Width 16.2 % (11.5-14.5); Segmented Neutrophils % 90.2 %
[2018-04-26 05:28] LABS: Alanine Aminotransferase 19 Units/L (7-52); Albumin 3.9 g/dL (3.5-5.7); Albumin/Globulin Ratio 1.6 (1.1-2.2); Alkaline Phosphatase 89 Units/L (34-104); Aspartate Amino Transferase 18 Units/L (13-39); BUN/Creatinine Ratio 17 (6-26); Bilirubin,Total 0.3 mg/dL (0.3-1.0); Blood Urea Nitrogen 13 mg/dL (6-20); Calcium 9.1 mg/dL (8.6-10.3); Carbon Dioxide 22 mEq/L (23-29); Chloride 100 mEq/L (98-107); Globulin 2.5 g/dL (2.4-3.5); Glucose 325 mg/dL (70-105); Osmolality,Calculated 293 (280-300); Sodium 135 mEq/L (136-145); Total Protein 6.4 g/dL (6.4-8.9); eGFR For Non-African Americans > 60 (> 60)
[2018-04-26] MEDS ORDERED: Isovue-370 500 ML INFUS..BTL IV ONE (05:51)
[2018-04-26] MEDS ORDERED: Isosorbide MONOnitrate (24 HR) 30 MG TAB.ER.24H PO SCH (09:00)
[2018-04-26] MEDS: Lithium Carbonate 300 MG CAPSULE PO SCH ×2 (09:40→21:15)
[2018-04-26] MEDS: CONTRAVE PO SCH ×2 (09:41→23:56)
[2018-04-26] MEDS: diazePAM 5 MG TABLET PO SCH ×2 (10:14→21:15)
[2018-04-26] MEDS: *HR* HYDROcodone/Acet 5/325 mg TABLET PO SCH ×3 (12:53→23:55)
[2018-04-26] MEDS ORDERED: Levalbuterol Neb 1.25 MG/3 ML ONE (16:36)
[2018-04-26] MEDS: Levalbuterol Neb 1.25 MG/3 ML IH SCH ×2 (16:36→22:09)
--- NOTE | 2018-04-26 17:30 | Electrocardiograph Report ---
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
[2018-04-26] MEDS ORDERED: *HR* LORazepam 2 MG/ML VIAL IVP PRN (18:26)
[2018-04-26] MEDS ORDERED: *HR* LORazepam 2 MG/ML VIAL IVP SCH (20:00)
[2018-04-26] MEDS ORDERED: Metoprolol XL (24 HR) Succ 50 MG TAB.ER.24H PO SCH (21:00)
[2018-04-26] MEDS ORDERED: Gabapentin 300 MG CAPSULE PO SCH (21:00)
[2018-04-26] MEDS ORDERED: Perflutren Lipid Microsphere 1.3 ML in 0.9 % Sodium Chloride 8.7 ML IVP ONE (21:32)
[2018-04-27] MEDS: Levalbuterol Neb 1.25 MG/3 ML IH SCH ×2 (04:03→10:47)
[2018-04-27] MEDS ORDERED: *HR* Promethazine 25 MG/ML VIAL IVP PRN (04:43)
[2018-04-27] MEDS: MethylPREDNISolone 40 MG/ML VIAL IVP SCH (05:18)
[2018-04-27] MEDS: *HR* Heparin 5,000 UNIT/ML VIAL SQ SCH (05:18)
[2018-04-27] MEDS: *HR* OxyCODONE Immed Rel 5 MG TABLET PO PRN (05:19)
[2018-04-27] MEDS: diazePAM 5 MG TABLET PO SCH (08:22)
[2018-04-27] MEDS: Lithium Carbonate 300 MG CAPSULE PO SCH (08:22)
[2018-04-27] MEDS: *HR* HYDROcodone/Acet 5/325 mg TABLET PO SCH (08:23)
[2018-04-27] MEDS: CONTRAVE PO SCH (08:27)
[2018-04-27 10:36] VITALS: BP 158/84
--- NOTE | 2018-04-27 10:54 | Discharge Summary ---
Date of Encounter: 04/27/18 Time of Encounter: 10:52 - Discharge Diagnosis (1) Atypical chest pain Priority: Primary Status: Acute (2) COPD exacerbation Priority: Primary Status: Acute (3) Hypertension Priority: Secondary Status: Chronic Qualifiers: Hypertension type: essential hypertension Qualified Code(s): I10 - Essential (primary) hypertension (4) GERD (gastroesophageal reflux disease) Priority: Secondary Status: Chronic Qualifiers: Esophagitis presence: esophagitis presence not specified Qualified Code(s): K21.9 - Gastro-esophageal reflux disease without esophagitis (5) Bipolar disorder Priority: Secondary Status: Chronic Qualifiers: Active/Remission status: in remission of unspecified degree Qualified Code(s): F31.70 - Bipolar disorder, currently in remission, most recent episode unspecified Hospital course: HOSPITAL COURSE: The patient is a 47-year-old woman. We admitted her to have difficulty breathing. Suspected her to have COPD exacerbation. She also reported to us lower substernal chest pain. The pain is chronic in nature. She had cardiac catheterization done in 2017 showing only minimal coronary artery disease. We found her having wheezes and rhonchi. She was mildly hypoxic. She has also tenderness with palpation of lower sternal area. She was treated with IV Solu-Medrol and nebulizer treatments with DuoNeb. I offered her Mobic and scheduled Narco to control her pain. Other than pain in the area of her lower sternum she also complained of pain in the area of left knee; had left knee replaced a couple weeks before this admission. We got her breathing better. We got her pain under fair control. CONDITION AT DISCHARGE: She is on room air oxygen. Not having any resting dyspnea. She does have mild cough but not wheezing. Her lower substernal chest pain and left knee pain are under fair control. Skin: Free of rash and discoloration. Musculoskeletal: There is mild swelling in the area of her left knee. The surgical wound is healing well. Respiratory: Normal breath sounds with no crackles and wheezes bilaterally. CV: Heart is regular with no gallop or murmur. GI: Abdomen is flat and soft with no palpable mass or visceromegaly. Neuro exam: There is no focal deficits. Normal speech, swallowing and gait. SEE DISCHARGE ORDERS/MEDICATIONS.. Time spent discussing smoking cessation with patient: 3 to 10 minutes - Time Spent with Patient Total time spent providing and/or coordinating discharge services: Greater than 30 minutes (40 minutes..) - Discharge Medications Prescriptions: Diclofenac Sodium 100 gm TP BID #100 gel..gram. HYDROcodone/Acet 5/325 mg [[place] 5-325 mg] 1 tab PO Q6H PRN 5 Days #10 tablet PRN Reason: Moderate Pain Meloxicam [Mobic] 15 mg PO DAILY #30 tablet predniSONE [PredniSONE] 20 mg PO QAM 5 Days #5 tablet Home Medications: Esomeprazole Magnesium [Nexium] 40 mg PO DAILY 02/08/15 [History] Acetaminophen/Butalbital/Caffe [Fioricet] 1 tab PO Q6HR PRN 09/06/16 [History] Buspirone HCl [Buspar] 10 mg PO BID 09/06/16 [History] [place] Carbonate 300 mg PO BID 09/06/16 [History] Albuterol Sulfate [Albuterol Inhaler] 2 puff IH Q6HR PRN #1 hfa.aer.ad 02/28/17 [Rx] Escitalopram [Lexapro] 40 mg PO DAILY 04/08/18 [History] Gabapentin [Neurontin] 300 mg PO HS 04/08/18 [History] Losartan [Cozaar] 25 mg PO DAILY 04/08/18 [History] Meclizine HCl [Verticalm] 25 mg PO DAILY PRN 04/08/18 [History] Metoprolol Succinate [Toprol Xl] 100 mg PO HS 04/08/18 [History] Naltrexone HCl/Bupropion HCl [Contrave ER 8-90 mg Tablet] 2 tab PO BID 04/08/18 [History] Promethazine [Phenergan] 25 mg PO Q12H PRN 04/08/18 [History] Rizatriptan Benzoate [Maxalt] 10 mg PO DAILY PRN 04/08/18 [History] Tizanidine HCl 4 mg PO Q6H PRN 04/08/18 [History] Quetiapine Fumarate [Seroquel] 200 mg PO DAILY 04/26/18 [History] diazePAM [Valium] 5 mg PO BID 04/26/18 [History] Diclofenac Sodium 100 gm TP BID #100 gel..gram. 04/27/18 [Rx] HYDROcodone/Acet 5/325 mg [[place] 5-325 mg] 1 tab PO Q6H PRN 5 Days #10 tablet 04/27/18 [Rx] Meloxicam [Mobic] 15 mg PO DAILY #30 tablet 04/27/18 [Rx] predniSONE [PredniSONE] 20 mg PO QAM 5 Days #5 tablet 04/27/18 [Rx] Allergies/Adverse Reactions: Allergy/AdvReac Type Severity Reaction Status Date / Time aspirin [ASA] Allergy Hives Verified 11/19/16 16:24 meperidine [From [place]er[place]] Allergy Hives Verified 11/19/16 16:24 acetaminophen [From [place]] AdvReac Nausea Verified 04/08/18 14:25 hydrocodone AdvReac Nausea Verified 04/08/18 14:25 lisinopril AdvReac Cough Verified 11/19/16 16:24 "Nuc Med Stress Test Allergy Fainting Uncoded 01/30/17 02:25 Contrast Dye" Date of admission: 04/26/18 00:39 Primary care physician: Ector Wynne MD Consults: 04/26/18 03:06 Consult to Nurse Navigator [CONS] Routine Comment: Discharging clinician: Danie Castillo Anticipated date of discharge: 04/27/18 - Constitutional Vitals: Temp Pulse Resp BP Pulse Ox 98.1 F 80 18 158/84 94 04/27/18 10:34 04/27/18 10:34 04/27/18 10:34 04/27/18 10:34 04/27/18 10:34 General appearance: Present: A&O X 3, no acute distress, answers questions appropriately Exam: xx - Patient Status Disposition: Home, Self-Care Condition: Good Functional capacity at discharge: independent ambulation Overall status at discharge: patient is progressing back to baseline - Discharge Instructions Follow Up With: Ector Wynne MD [Primary Care Provider] - Additional Instructions: THE PATIENT IS TO RESUME OUTPATIENT REHAB (LEFT KNEE REPLACED RECENTLY).. - Diet and Activity Activity: increase activity as tolerated Diet: low fat, low cholesterol - VTE Deep Vein Thrombosis/Pulmonary Embolism Present on Admission: No
== END 2018-04-27 13:10 | disposition home or self-care (01) ==
LOC: EMEROOARM 19:33 → 3NENU 19:33 → SUATTDRO 04-26 00:39 → 3NENU 04-26 02:23
PROVIDERS: ADMIT Internal Medicine; ATTEND Internal Medicine